=== PATIENT | female | born 1980 | race Caucasian/White ===

== ENCOUNTER 2021-11-23 12:24 | Emergency (ER) | payer OTHER, SELFPAY ==
--- NOTE | ~2021-11-23 | XR_ITS ---
EXAMINATION: XR ANKLE, LEFT CLINICAL INFORMATION: Slip and fall. Pain COMPARISON: None TECHNIQUE: AP, lateral, and mortise views of the left ankle. FINDINGS: The ankle mortise and subtalar joints are normal. There is an oblique distal fibular comminuted fracture. No additional fractures seen. There is slight increased distance in the medial ankle mortise joint space. Moderate lateral malleolar soft tissue swelling is noted. XR/XR ankle LT min 3V IMPRESSION: Oblique comminuted fracture distal fibula with mild distraction of the ankle mortise and moderate lateral malleolar soft tissue swelling.
[2021-11-23 13:16] VITALS: BP 144/70; PULSE 88; RESP 18; TEMP 36.6; O2SAT 98; BMI 36.6
--- NOTE | 2021-11-23 15:00 | ED_ITS ---
HPI - Extremity Injury (Lower) General Chief Complaint: Extremity Injury, Lower <Poly Costa NP - Last Filed: 11/23/21 17:34> Stated Complaint: fall - lt ankle injury <DASHAWN Richey Last Filed: 11/23/21 17:34> Time Seen by Provider: 11/23/21 14:33 <DASHAWN Richey Last Filed: 11/23/21 17:34> Source: patient <DASHAWN Richey Last Filed: 11/23/21 17:34> Mode of arrival: ambulatory <DASHAWN Richey Last Filed: 11/23/21 17:34> Limitations: no limitations <DASHAWN Richey Last Filed: 11/23/21 17:34> History of Present Illness HPI Narrative: 40-year-old female here with left ankle pain after an inversion injury that occurred while leaving work. Patient tells me she was in the work parking lot getting into her car when her foot slipped on ice with inversion of the ankle. Patient tells me since then she has had difficulty with weight-bearing due to pain. No numbness, tingling, warmth, redness or fever. <DASHAWN Richey Last Filed: 11/23/21 17:34> Related Data Home Medications: Previous Rx's Medication Instructions Recorded ibuprofen 600 mg tablet 600 mg PO Q8H PRN #20 tab 11/23/21 oxycodone 5 mg tablet 5 mg PO Q6H PRN #10 tab 11/23/21 <DASHAWN Richey Last Filed: 11/23/21 17:34> Allergies/Adverse Reactions: Allergies Allergy/AdvReac Type Severity Reaction Status Date / Time No Known Allergies Allergy Unverified 07/16/20 15:50 <DASHAWN Richey Last Filed: 11/23/21 17:34> Review of Systems Verdana 4l Review of Systems: Verdana 4d Yes all other systems are reviewed and are negative Verdana 4Il <DASHAWN Richey Last Filed: 11/23/21 17:34> Verdana 4d Verdana 4l Constitutional: Verdana 4d Verdana 4d Constitutional: Verdana 4d Reports no additional constitutional complaints, Denies body ache(s), Denies chills, Denies fever(s), Denies headache(s) and Denies weakness Verdana 4Il <Poly Costa NP - Last Filed: 11/23/21 17:34> VerdanaVerdana 4d Eyes: Eyes: Reports no additional eye complaints and Denies change in vision <Poly Costa NP - Last Filed: 11/23/21 17:34> ENT: Reports system reviewed and no additional complaints, except as documented, Denies dizziness, Denies headache(s), Denies nasal congestion, Denies nasal discharge and Denies neck pain <Poly Costa NP - Last Filed: 11/23/21 17:34> Cardiovascular: Cardiovascular: Reports no additional cardiovascular complaints, Denies chest pain, Denies leg edema and Denies dyspnea <Poly Costa NP - Last Filed: 11/23/21 17:34> Respiratory: Respiratory: Reports no additional respiratory complaints, Denies cough and Denies dyspnea <Poly Costa NP - Last Filed: 11/23/21 17:34> Gastrointestinal: Gastrointestinal: Reports no additional gastrointestinal complaints, Denies abdominal pain, Denies diarrhea, Denies nausea and Denies vomiting <Poly Cotsa NP - Last Filed: 11/23/21 17:34> Genitourinary: Genitourinary: Reports no additional female genitourinary complaints and Denies urinary incontinence <Poly Costa NP - Last Filed: 11/23/21 17:34> Musculoskeletal: Musculoskeletal: Reports no additional musculoskeletal complaints, Denies back pain, Reports arthralgias, Reports joint swelling, Reports limited range of motion, Denies neck pain, Denies numbness and Denies tingling <Poly Costa NP - Last Filed: 11/23/21 17:34> Integumentary/Breasts: Skin/Breast: Reports system reviewed and no additional complaints, except as docu and Denies rash <Poly Costa NP - Last Filed: 11/23/21 17:34> Neurologic: Reports system reviewed and no additional complaints, except as documented, Denies Abnormal speech present, Denies dizziness, Denies headache(s), Denies numbness, Denies tingling and Denies weakness <Poly Costa NP - Last Filed: 11/23/21 17:34> [facility] Past Medical History Attestation statement: The following information was validated with the patient. <Poly Costa NP - Last Filed: 11/23/21 17:34> Source: old records reviewed and nursing notes reviewed <Poly Costa NP - Last Filed: 11/23/21 17:34> Social History Social History: Social History Advance Directives: No Advance Directives Information Provided: No <Poly Costa NP - Last Filed: 11/23/21 17:34> Physical Exam Verdana 4l Vital Signs: Verdana 4d Verdana 4d Vital Signs: Verdana 4d Verdana 4Bd Last Vital Signs Verdana 4d Sand Mixer Machine New 4d Sand Mixer Machine New 4d Temp 98 F 11/23/21 13:16 Sand Mixer Machine New 4d Pulse 88 11/23/21 13:16 Sand Mixer Machine New 4d Resp 18 11/23/21 13:16 BP 144/70 H 11/23/21 13:16 Pulse Ox 98 11/23/21 13:16 BMI result Body Mass Index 36.6 <DASHAWN Richey Last Filed: 11/23/21 17:34> Const: General: cooperative, healthy appearing, comfortable and no acute distress <Poly Costa NP - Last Filed: 11/23/21 17:34> Orientation/consciousness: patient oriented x3 <Poly Costa NP - Last Filed: 11/23/21 17:34> Limitations: no limitations <Poly Costa NP - Last Filed: 11/23/21 17:34> HENMT: Head: Yes normal to inspection <DASHAWN Richey Last Filed: 11/23/21 17:34> Ears: hearing grossly normal bilaterally <Poly Costa NP - Last Filed: 11/23/21 17:34> General nose exam: Normal external nose present <Poly Costa NP - Last Filed: 11/23/21 17:34> Face and sinus: Yes normal facial exam <Poly Costa [employer]ER - Last Filed: 11/23/21 17:34> Mouth: Normal oral and palatal mucosa present <Poly Costa NP - Last Filed: 11/23/21 17:34> Throat: Yes posterior oropharynx normal <Poly Costa [employer] - Last Filed: 11/23/21 17:34> Eyes: General: appearance normal, both eyes and all related structures <Poly Costa NP - Last Filed: 11/23/21 17:34> Pupils: Equal, round and reactive pupils present <Poly Costa [employer] - Last Filed: 11/23/21 17:34> Neck: Neck: Yes normal visual inspection <Poly Costa NP - Last Filed: 11/23/21 17:34> Chest: Chest palpation & inspection: normal inspection of the chest <Poly Costa [employer] - Last Filed: 11/23/21 17:34> Resp: Effort & Inspection: normal respiratory effort <Poly Costa NP - Last Filed: 11/23/21 17:34> Auscultation: clear to auscultation bilaterally <Poly Costa [employer] - Last Filed: 11/23/21 17:34> Cardio: Rate: regular rate <Poly Costa NP - Last Filed: 11/23/21 17:34> Rhythm: regular rhythm <Poly Costa NP - Last Filed: 11/23/21 17:34> Peripheral pulses: Peripheral pulses 2+ throughout <Poly Costa NP - Last Filed: 11/23/21 17:34> GI: Inspection: Yes normal to inspection <Poly Costa NP - Last Filed: 11/23/21 17:34> Palpation (GI): Soft to palpation and nontender <Poly Costa [employer] - Last Filed: 11/23/21 17:34> Auscultation: normal bowel sounds <Poly Costa NP - Last Filed: 11/23/21 17:34> Back/Spine/Pelvis: Thoracic/Lumbar Spine: thoracic and lumbar spine normal to inspection <Poly Costa NP - Last Filed: 11/23/21 17:34> Skin: General skin exam: no rashes or lesions noted <Poly Costa NP - Last Filed: 11/23/21 17:34> Neuro: General: patient oriented x3, no focal motor deficits and normal sensation to monofilament <Poly Costa NP - Last Filed: 11/23/21 17:34> Cranial nerves: Yes Equal, round and reactive pupils present <Poly Costa NP - Last Filed: 11/23/21 17:34> Cognition (Neuro): normal cognition <Poly Costa NP - Last Filed: 11/23/21 17:34> Speech: No Abnormal speech present <Poly Costa NP - Last Filed: 11/23/21 17:34> Gait exam (Neuro): Normal gait present <Poly Costa NP - Last Filed: 11/23/21 17:34> Motor exam (neuro): 5/5 motor strength present throughout <Poly Costa NP - Last Filed: 11/23/21 17:34> Extrem: Other: There is ecchymosis, swelling and tenderness the left lateral ankle. Neurovascular intact distally. Range of motion is limited due to pain the patient is able. <Poly Costa NP - Last Filed: 11/23/21 17:34> General: Yes normal to inspection <Poly Costa NP - Last Filed: 11/23/21 17:34> Course Course Course Narrative: 40yo female here with inversion injury to the left ankle. X-ray show Oblique comminuted fracture distal fibula with mild distraction of the ankle mortise and moderate lateral malleolar soft tissue swelling. -will place patient in splint and given crutches for home. Reviewed rice. Reviewed worrisome signs and symptoms of when to return to the emergency department. Comfortable discharge home. <Poly Costa NP - Last Filed: 11/23/21 17:34> MDM - Extremity Injury (Lower) Medical Records Attestation: I reviewed the patient's medical records. <Poly Costa NP - Last Filed: 11/23/21 17:34> Lab Data Attestation: I reviewed the patient's lab results. <Poly Costa NP - Last Filed: 11/23/21 17:34> Imaging Data Ankle x-ray: Attestation: I personally reviewed and interpreted this imaging study as follows: <Poly Costa NP - Last Filed: 11/23/21 17:34> Radiologist's impression: [place] [id number] XRay Report Signed Patient: Lavonne Barger MR#: [id number] : 1980 Acct:[id number] Age/Sex: 40 / F ADM Date: 11/23/21 Loc: HO.ED Attending Dr: Ordering Physician: Generic ED Physician Date of Service: 11/23/21 Procedure(s): XR ankle LT min 3V Accession Number(s): [id number] cc: Generic ED Physician~ EXAMINATION: XR ANKLE, LEFT CLINICAL INFORMATION: Slip and fall. Pain? COMPARISON: None? TECHNIQUE: AP, lateral, and mortise views of the left ankle. FINDINGS: The ankle mortise and subtalar joints are normal. There is an oblique distal fibular comminuted fracture. No additional fractures seen. There is slight increased distance in the medial ankle mortise joint space. Moderate lateral malleolar soft tissue swelling is noted.? XR/XR ankle LT min 3V IMPRESSION: Oblique comminuted fracture distal fibula with mild distraction of the ankle mortise and moderate lateral malleolar soft tissue swelling. <Poly Costa NP - Last Filed: 11/23/21 17:34> Procedures Orthopedic Splinting/Casting Injury #1: Lower Extremity Injury Location: lower leg and ankle <Poly Costa NP - Last Filed: 11/23/21 17:34> Lower Extremity Immobilizer: posterior splint and stirrup splint <Poly Costa NP - Last Filed: 11/23/21 17:34> Other Orthopedic Equipment: crutches <Poly Costa NP - Last Filed: 11/23/21 17:34> Discharge Plan Discharge Clinical Impression: Ankle fracture <Poly Costa NP - Last Filed: 11/23/21 17:34> Patient Disposition: Home, Self-Care <Poly Costa NP - Last Filed: 11/23/21 17:34> Instructions: Ankle Fracture (ED) <Poly Costa NP - Last Filed: 11/23/21 17:34> Additional Instructions: Rest, ice, elevate on 3 or more pillows The splint must stay on all times. Do not remove it. It cannot get wet. Crutches with strict weight-bearing. Call Orthopedics today for a follow-up appointment this week Call work connection as this is a work related injury for follow-up [phone] <Poly Costa NP - Last Filed: 11/23/21 17:34> Prescriptions: New ibuprofen 600 mg tablet 600 mg PO Q8H PRN (Reason: pain) Qty: 20 0RF oxycodone 5 mg tablet 5 mg PO Q6H PRN (Reason: pain) Qty: 10 0RF <Poly Costa NP - Last Filed: 11/23/21 17:34> Referrals: Magaly Levy MD [Physician] - 2 days <Poly Costa NP - Last Filed: 11/23/21 17:34> Stand Alone Forms: Work/School Release <Poly Costa NP - Last Filed: 11/23/21 17:34> Interventions: ED Discharge Assessment Last Done: 11/23/21 16:18 <Poly Costa NP - Last Filed: 11/23/21 17:34> Discharge Date/Time: 11/23/21 16:21 <Poly Costa NP - Last Filed: 11/23/21 17:34>
== END 2021-11-23 16:21 | disposition home or self-care (01) ==
PROVIDERS: Emergency Provider Emergency Medicine; PCP Internal Medicine
DX: S82.892A Other fracture of left lower leg, initial encounter for closed fracture (principal); M79.605 Pain in left leg; W00.0XXA Fall on same level due to ice and snow, initial encounter; Y93.9 Activity, unspecified; Y92.9 Unspecified place or not applicable; Y99.9 Unspecified external cause status; Z79.899 Other long term (current) drug therapy
CPT/HCPCS: 29515; 73610; 99283; 99284

== ENCOUNTER 2021-12-03 06:04 | Outpatient (REF) | payer OTHER, SELFPAY ==
--- NOTE | ~2021-12-03 | XR_ITS ---
EXAMINATION: XR ANKLE, LEFT CLINICAL INFORMATION: Pain in left ankle. COMPARISON: None TECHNIQUE: AP, lateral, and mortise views of the left ankle. FINDINGS: There is mild lateral malleolar soft tissue swelling. There is an oblique minimally displaced fracture distal fibula. There is mild widening of the medial ankle joint, similar to previous study. The subtalar joint is normal. The soft tissues are normal. XR/XR ankle LT min 3V IMPRESSION: No significant change in stable comminuted oblique distal fibular fracture with mild increased joint space medial ankle mortise and moderate lateral malleolar soft tissue swelling.
== END 2021-12-03 06:05 | disposition home or self-care (01) ==
LOC: HO.HOSX 06:04
PROVIDERS: Visit Provider Physician Assistant
DX: S82.832A Other fracture of upper and lower end of left fibula, initial encounter for closed fracture (principal)
CPT/HCPCS: 29405; 73610; 99202

== ENCOUNTER 2021-12-08 09:45 | Outpatient (REF) | payer OTHER, SELFPAY ==
--- NOTE | ~2021-12-08 | XR_ITS ---
EXAMINATION: XR ANKLE, LEFT CLINICAL INFORMATION: Left ankle pain. COMPARISON: 12/03/2021 and 11/23/2021. TECHNIQUE: AP, lateral, and mortise views of the left ankle. FINDINGS: 3 views taken through a cast of the left ankle provided. Fine bony details obscured by overlying cast material. On the provided imaging, the ankle mortise appears intact. No widening of the medial joint space. Alignment appears unchanged. There is a vertical line through the posterior malleolus consistent with non-displaced posterior malleolar fracture. There also appears to be a non-displaced small avulsion fracture of the medial malleolus. XR/XR ankle LT min 3V IMPRESSION: No change in alignment of the left ankle with no widening of the ankle mortise.
== END 2021-12-08 09:46 | disposition home or self-care (01) ==
LOC: HO.HOSX 09:45
PROVIDERS: Visit Provider Physician Assistant
DX: L97.329 Non-pressure chronic ulcer of left ankle with unspecified severity (principal); S82.832D Other fracture of upper and lower end of left fibula, subsequent encounter for closed fracture with routine healing; X58.XXXD Exposure to other specified factors, subsequent encounter
CPT/HCPCS: 73610; 99212

== ENCOUNTER 2021-12-16 06:31 | Outpatient (REF) | payer OTHER, SELFPAY | END 2021-12-16 06:32 | disposition home or self-care (01) | LOC: HO.HOSX 06:31 | PROVIDERS: Visit Provider Physician Assistant | DX: Z13.89 Encounter for screening for other disorder (principal) ==

== ENCOUNTER 2021-12-27 08:11 | Outpatient (REF) | payer OTHER, SELFPAY ==
--- NOTE | ~2021-12-27 | XR_ITS ---
EXAMINATION: XR ANKLE, LEFT CLINICAL INFORMATION: Ankle pain COMPARISON: X-ray 12/08/2021 TECHNIQUE: AP, lateral, and mortise views of the left ankle. FINDINGS: Interval removal of the cast. The comminuted distal fibular fracture is similar in position and alignment. The fracture planes are visible, but ill-defined. Lucency projected over the posterior malleolus of the distal tibia, could represent a undisplaced fracture in this region. Question small avulsion fracture adjacent to the tip of the medial malleolus. Asymmetric appearance of the ankle mortise, with widening of the medial clear space. Mild lateral malleolar soft tissue swelling. XR/XR ankle LT min 3V IMPRESSION: Stable alignment of the comminuted distal fibular fracture. Asymmetric prominence of the medial aspect of the ankle mortise, could be related to widening versus secondary to positioning/technique. Question posterior malleolar fracture. Question subtle avulsion fracture of the tip of the medial malleolus.
== END 2021-12-27 08:12 | disposition home or self-care (01) ==
LOC: HO.HOSX 08:11
PROVIDERS: Visit Provider Physician Assistant
DX: S82.832D Other fracture of upper and lower end of left fibula, subsequent encounter for closed fracture with routine healing (principal)
CPT/HCPCS: 29405; 73610; 99212

== ENCOUNTER 2022-01-21 07:49 | Outpatient (REF) | payer OTHER, SELFPAY ==
--- NOTE | ~2022-01-21 | XR_ITS ---
EXAMINATION: XR ANKLE, LEFT CLINICAL INFORMATION: Pain COMPARISON: Left ankle 12/19/2021 TECHNIQUE: AP, lateral, and mortise views of the left ankle. FINDINGS: Again visualized is a nondisplaced fracture distal fibula without any significant callus formation. There is a tiny avulsion fragment tip of medial malleolus. Mild prominence of medial aspect of ankle mortise likely mild widening is stable. The subtalar joint is normal. No other abnormality seen. XR/XR ankle LT min 3V IMPRESSION: Oblique distal fibular fracture is stable. No callus formation seen yet. Tiny fracture fragment tip of medial malleolus is stable. Mild widening of the medial ankle mortise is unchanged. No soft tissue swelling seen.
== END 2022-01-21 07:50 | disposition home or self-care (01) ==
LOC: HO.HOSX 07:49
PROVIDERS: Visit Provider Physician Assistant
DX: S82.832D Other fracture of upper and lower end of left fibula, subsequent encounter for closed fracture with routine healing (principal)
CPT/HCPCS: 73610; 99212

== ENCOUNTER 2022-02-25 08:01 | Outpatient (REF) | payer OTHER, SELFPAY ==
--- NOTE | ~2022-02-25 | XR_ITS ---
EXAMINATION: XR ankle LT min 3V CLINICAL INFORMATION: Pain COMPARISON: Ankle radiographs 01/21/2022 TECHNIQUE: 3 views of the ankle XR/XR ankle LT min 3V FINDINGS/IMPRESSION: Redemonstration of the comminuted obliquely oriented fracture of the distal fibular metadiaphysis, in unchanged alignment without romero bony callus formation. A nondisplaced posterior malleolus fracture demonstrates minimal residual lucency suggesting ongoing healing. Similar tiny avulsion fracture of the medial malleolus. Disuse osteopenia progressed from prior. Ankle mortise is congruent without widening of the medial clear space. No joint effusion. Soft tissues are unremarkable.
== END 2022-02-25 08:02 | disposition home or self-care (01) ==
LOC: HO.HOSX 08:01
PROVIDERS: Visit Provider Physician Assistant
DX: S82.832D Other fracture of upper and lower end of left fibula, subsequent encounter for closed fracture with routine healing (principal); X58.XXXD Exposure to other specified factors, subsequent encounter
CPT/HCPCS: 73610; 99212

== ENCOUNTER 2022-04-18 07:55 | Outpatient (REF) | payer OTHER, MEDICAID, SELFPAY ==
--- NOTE | ~2022-04-18 | XR_ITS ---
EXAMINATION: XR ANKLE, LEFT CLINICAL INFORMATION: Pain left ankle joint and foot COMPARISON: Ankle radiograph from 02/25/2022 TECHNIQUE: AP, lateral, and mortise views of the left ankle. FINDINGS: Redemonstration of spiral fracture involving the distal fibula, relatively stable in alignment. Fracture of the posterior malleolus is less conspicuous suggesting interval healing. Disuse osteopenia. The ankle mortise is symmetric. Suggestion of pes planus. Very slight enthesopathy at the Achilles tendon insertion site. Soft tissues are unremarkable. XR/XR ankle LT min 3V IMPRESSION: 1. Redemonstration of spiral fracture involving the distal fibula, relatively stable in alignment. 2. Fracture of the posterior malleolus is less conspicuous suggesting interval healing. 3. Disuse osteopenia.
== END 2022-04-18 07:56 | disposition home or self-care (01) ==
LOC: HO.HOSX 07:55
PROVIDERS: Visit Provider Physician Assistant
DX: S82.832D Other fracture of upper and lower end of left fibula, subsequent encounter for closed fracture with routine healing (principal)
CPT/HCPCS: 73610; 99212

== ENCOUNTER 2022-04-27 13:00 | Outpatient (RCR) | payer OTHER, MEDICAID, SELFPAY ==
--- NOTE | 2022-03-18 08:30 | MHC.PT.EP ---
[facility] [place] Office [place] Office [place] Office [address] Brie Soni [address] [phone] F: [phone] F: [phone] F: [phone] F: [phone] Physical Therapy Plan of Care Date of Evaluation: Date of Surgery: Diagnosis: other fx of upper and lower end of L fibula, subsequent encounter for closed fx with routine healing ROM, heel cord stretching, proprioceptive training Assessment: 41 y/o referred to PT following fx of upper and lower end of L fibula. 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 Injury occurred 11/22/21 while walking out of work when she slipped on ice. Reports instant pain and unable to WB; she went to the ED the next day and she was placed in a splint and referred to ortho due to L tibia-fibular fx. States she ended up having an ulcer on her heel, therefore per pt she was unable to have surgery. She has been in a tall walking boot for a about a month (pt is unsure of timeline between wearing splints, casts, and walking boot). She has mostly been compliant with NWB outside of boot except occasionally walking from bedroom to bathroom barefoot. 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 Examination shows decreased L ankle AROM, mild ankle edema, decreased gastroc/soleus length, decreased L LE strenght, impaired balance, and impaired gait pattern. Recommend PT 2x/week for 8 weeks to address impairments, implement HEP, and optimize functional mobility. Frequency and Duration: The patient will be seen 2x/week for 8 weeks Short Term Goals: 4 weeks 1. I with HEP 2. Improve L ankle dorsiflexion to 10* 3. Improve L ankle plantarflexion to 50* 4. Will initiate gait without boot once cleared from [facility] Goals: 8 weeks 1. I with HEP and self management of sx 2. Improve LEFS to 40/80 (IR ) 3. Pt will be able to ambulate > 25minutes with step through pattern and pain < 3/10 4. Pt will be able to lift 10# to faciliate grocery shopping Treatment Plan: Modalities to reduce pain, spasms and effusion. Manual therapy to restore motion and function. Therapeutic exercise to improve strength and flexibility. Neuromuscular re-education for posture and balance. Therapeutic activities to return to functional activities of daily living. Electronically signed by: Jeanne Dow PT DPT Please sign and return to therapist. Thank you for your referral.
--- NOTE | 2022-05-16 10:44 | MHC.PT.DC ---
[facility] [place] Office [place] Office [place] Office [address] Brie Soni [address] [phone] F: [phone] F: [phone] F: [phone] F: [phone] Physical Therapy Discharge Report Diagnosis: other fx of upper and lower end of L fibula, subsequent encounter for closed fx with routine healing ROM, heel cord stretching, proprioceptive training Date of Surgery: Date of Evaluation: 03/18/22 Date of Discharge: 05/16/22 Treatments to Date: 8 Cancellations to Date: 2 No Shows to Date: 5 Discharge Status: Visit Non-compliance Discharge Summary: D/c secondary to noncompliance with scheduling policy with 5 no shows visits. Electronically signed by: Jeanne Dow PT Please sign and return to therapist. Thank you for your referral.
== END 2022-05-16 10:44 | disposition home or self-care (01) ==
LOC: HO.PTCHIC 13:00
PROVIDERS: PCP Internal Medicine; Visit Provider Physician Assistant
DX: S82.832D Other fracture of upper and lower end of left fibula, subsequent encounter for closed fracture with routine healing (principal)
CPT/HCPCS: 97110; 97112; 97116; 97161; 97530

== ENCOUNTER 2022-05-16 08:17 | Outpatient (REF) | payer OTHER, MEDICAID, SELFPAY ==
--- NOTE | ~2022-05-16 | XR_ITS ---
EXAMINATION: XR ANKLE, LEFT CLINICAL INFORMATION: Left ankle pain COMPARISON: 04/18/2022 TECHNIQUE: AP, lateral, and mortise views of the left ankle. XR/XR ankle LT min 3V FINDINGS/IMPRESSION: Disuse osteopenia. Oblique longitudinal fracture of the distal fibula above the syndesmosis with minimal, if any, osseous bridging. No significant change.
== END 2022-05-16 08:18 | disposition home or self-care (01) ==
LOC: HO.HOSX 08:17
PROVIDERS: Visit Provider Physician Assistant
DX: S82.832D Other fracture of upper and lower end of left fibula, subsequent encounter for closed fracture with routine healing (principal)
CPT/HCPCS: 73610; 99212

== ENCOUNTER 2022-06-11 14:09 | Emergency (ER) | payer MEDICAID, SELFPAY ==
[2022-06-11 14:48] VITALS: BP 97/57; PULSE 88; RESP 20; TEMP 36.2; O2SAT 98; BMI 36.6
== END 2022-06-11 17:00 | disposition left against medical advice (07) ==
PROVIDERS: Emergency Provider Emergency Medicine; PCP Internal Medicine
DX: Z76.0 Encounter for issue of repeat prescription (principal)
CPT/HCPCS: 99281

== ENCOUNTER 2022-06-27 11:27 | Outpatient (REF) | payer MEDICAID, SELFPAY ==
--- NOTE | ~2022-06-27 | XR_ITS ---
EXAMINATION: XR ANKLE, LEFT CLINICAL INFORMATION: Pain in left ankle COMPARISON: Left ankle radiograph from 05/16/2022 TECHNIQUE: AP, lateral, and mortise views of the left ankle. FINDINGS: Decreased bone mineral density which decreases sensitivity for fracture evaluation. Redemonstration of oblique fracture involving the distal fibula slightly above the syndesmosis, relatively stable in appearance. Stable 2 mm ossicle at the inferior aspect of the medial malleolus. Ankle mortise is symmetric. Joint spaces and alignment are maintained. Soft tissues are unremarkable. XR/XR ankle LT min 3V IMPRESSION: 1. Decreased bone mineral density which decreases sensitivity for fracture evaluation. 2. Redemonstration of oblique fracture involving the distal fibula slightly above the syndesmosis, relatively stable in appearance.
== END 2022-06-27 11:28 | disposition home or self-care (01) ==
LOC: HO.HOSX 11:27
PROVIDERS: Visit Provider Physician Assistant
DX: S82.832D Other fracture of upper and lower end of left fibula, subsequent encounter for closed fracture with routine healing (principal)
CPT/HCPCS: 73610; 99212

== ENCOUNTER 2022-08-09 12:57 | Emergency (ER) | payer MEDICAID, SELFPAY ==
[2022-08-09 13:06] VITALS: BP 160/82; PULSE 114; RESP 20; TEMP 36.9; O2SAT 97; BMI 36.6
[2022-08-09] MEDS: Ondansetron ODT 4 MG TAB.RAPDIS TRANSLINGU (17:55)
--- OUTSIDE RECORDS SUMMARY | 2022-08-09 21:00 | XMS_ITS | Continuity of Care Document ---
:1980 Author Organization [facility] Adult Address [address] [place] [address]- Care Team Providers Name Role Phone Michael Gutierrez MD Primary Care Physician Encounter [facility] [place] Date(s): 07/19/21 - 08/18/21 [facility] [address] [place] [id number] Attending Physician: Mercedez Barajas Admitting Physician: AdmtrMercedez Referring Physician: Admtr, Ar8 Allergies, Adverse Reactions, Alerts Substance Reaction Severity Status NKA Active Immunizations Given and Recorded Vaccine Date Status Refusal Reason tetanus/diphtheria/pertussis, acel(Tdap) 01/09/20 Given tetanus/diphtheria/pertussis, acel(Tdap)1 06/29/18 Given influenza virus vaccine, inactivated2 11/07/19 Given influenza virus vaccine, inactivated3 08/28/17 Given influenza virus vaccine, inactivated4 10/02/15 Given Afluria (oldterm)5 07/13/16 Given Tet/Diphth/Acel, Pertussis (oldterm) 03/06/08 Given 1Result Comment: [06/29/2018] VIS sheet given, pt tolerated [id number] Comment: Patient tolerated well NS.3Admin Note: [place] Famd4Nwraz Note: [id number] Note: [facility] Medications Alcohol Pads See Instructions, # 1 pack/packet, Refills 1, Tot. Refills 1, Maintenance, Z34.81: Please test bloodsugars 4 times a day and as needed, 02/13/20 14:20:00 EDT, Compound, 158.5, cm, 02/13/20 13:28:00 EDT, Height, 56.3, kg, 03/21/19 12:47:00 EDT, Dry We... Start Date: 02/13/20 Status: Orderedbaclofen 10 mg oral tablet 1, tablet, By Mouth, Daily, PRN, # 30 tablet, Refills 0, NEEDED FOR MUSCLE SPASMS, Route to Pharmacy Electronically, [facility] #[id number], 158, cm, 03/25/21 13:19:00 EDT, Height, 83.6, kg, 04/03/20 7:47:00 EDT, Dry Weight Start Date: 06/25/21 Status: OrderedclonazePAM 1 mg oral tablet 1 tablet = 1 mg, By Mouth, 2 times a day, # 60 tablet, 1 Refills, Maintenance, 07/30/19 11:44:00 EDT Start Date: 07/30/19 Stop Date: 09/28/19 Status: OrderedcloNIDine 0.2 mg oral tablet See Instructions, # 60 tablet, Refills 5 Tot. Refills 5, TAKE 1 TABLET BY MOUTH TWICE DAILY, [facility] #[id number] Start Date: 07/31/19 Status: Orderedfluticasone 50 mcg/inh nasal spray See Instructions, SHAKE LIQUID AND USE 1 SPRAY IN EACH NOSTRIL TWICE DAILY, # 16 Gm, 5 Refills, Maintenance, 04/25/21 9:43:00 EDT, [facility] #[id number], 30, SHAKE LIQUID AND USE 1 SPRAY IN EACH NOSTRIL TWICE DAILY, 158, cm, 03/25/21 13:19:00 ED... Start Date: 04/25/21 Status: OrderedFreestyle Lite Lancets See Instructions, # 1 pack/packet, Maintenance, Z34.81: Please test blood sugars 4 times a day and as needed, 02/13/20 14:20:00 EDT, Compound, 158.5, cm, 02/13/20 13:28:00 EDT, Height, 56.3, kg, 03/21/19 12:47:00 EDT, Dry Weight Start Date: 02/13/20 Status: OrderedFreestyle Lite Monitor See Instructions, # 1 each, Maintenance, Z34.81: Please test blood sugars 4 times a day and as needed, 02/13/20 14:19:00 EDT, Compound, 158.5, cm, 02/13/20 13:28:00 EDT, Height, 56.3, kg, 03/21/19 12:47:00 EDT, Dry Weight Start Date: 02/13/20 Status: OrderedFreestyle Lite Test Strips See Instructions, # 1 pack/packet, Refills 2, Tot. Refills 2, Maintenance, Z34.81: Please test bloodsugars 4 times a day and as needed, 02/13/20 14:20:00 EDT, Compound, 158.5, cm, 02/13/20 13:28:00 EDT, Height, 56.3, kg, 03/21/19 12:47:00 EDT, Dry We... Start Date: 02/13/20 Status: OrderedNeurontin 300 mg oral capsule 900 mg, 3, capsule, By Mouth, 3 times a day, # 270 capsule, Refills 5, Tot. Refills 5, Maintenance, 03/28/19 13:00:13 EDT, Route to Pharmacy Electronically, [id number], [id number] Start Date: 03/28/19 Stop Date: 09/24/19 Status: OrderedOrtho Micronor 0.35 mg oral tablet 1 tablet = 0.35 mg, By Mouth, Daily, # 84 tablet, 2 Refills, Maintenance, 04/06/20 9:47:00 EDT, Tablet, [facility] #[id number], 158, cm, 04/06/20 8:25:00 EDT, Height, 83.6, kg, 04/03/20 7:47:00 EDT, Dry Weight Start Date: 04/06/20 Status: OrderedPreNatal 19 (Nationwide) oral tablet, chewable 1 tablet, Daily, 0 Refills, Maintenance, 04/03/20 8:09:00 EDT Start Date: 04/03/20 Status: OrderedQUEtiapine 400 mg oral tablet See Instructions, # 30 tablet, Refills 5 Tot. Refills 5, TAKE 1 TABLET BY MOUTH DAILY AT BEDTIME, [facility] #[id number] Start Date: 08/09/19 Status: OrderedReadi-Cat 2 oral suspension See Instructions, PATIENT HAS INSTRUCTIONS, # 2 each, 0 Refills, Maintenance, 04/22/20 14:54:00 EDT,[facility] #[id number], PATIENT HAS INSTRUCTIONS, 158, cm, 04/22/20 13:06:00 EDT, Height, 83.6,kg, 04/03/20 7:47:00 EDT, Dry Weight Start Date: 04/22/20 Status: OrderedSuboxone 8 mg-2 mg sublingual film 2 each, Sublingual, Daily, # 60 each, 0 Refills, Maintenance, 07/15/16 14:28:07 Start Date: 07/15/16 Stop Date: 08/14/16 Status: Ordered Problem List Condition Effective Dates Status Health Status Informant Anxiety disorder(Confirmed) Active Depression(Confirmed)1 Active Hepatitis C(Confirmed) Active History of substance abuse(Confirmed) Active Hypercholesterolemia(Confirmed) 11/24/10 Active Migraine(Confirmed)2 Active Opioid dependence on maintenance Active agonist therapy, no symptoms(Confirmed)3 PTSD (post-traumatic stress Active disorder)(Confirmed) Major depression, recurrent(Confirmed) Active Hx of Seizures(Confirmed)4 Active Spasm of muscle(Confirmed) Active 1Has therapist, tries to see q2wks, but her availability makes it hard to see her like patient would to see her.2Hx of frequent migraines. Managed by pcp mainly, but reports has tried many meds and none seem to work and they tend to make her heart race.[id number] in years, clonazepam 1mg bid. Has seen neuro in past. Social History Social History Type Response Tobacco Use: 4 or less cigarettes(le ss than 1/4 pack)/day in last 30 days. Other: 1ppd prior to p regnancy and now down to 1pack/week.. Sex
--- OUTSIDE RECORDS SUMMARY | 2022-08-09 21:00 | XMS_ITS | Continuity of Care Document ---
:1980 Author Organization [facility] ic Address [address] [place] [id number]- Care Team Providers Name Role Phone Brenda SRIVASTAVA, Michael Primary Care Physician Encounter [facility] [place] Date(s): 02/27/20 - 03/05/[address] [address]- [facility] Attending Physician: Orquidea Altamirano MD Allergies, Adverse Reactions, Alerts Substance Reaction Severity Status NKA Active Immunizations Given and Recorded Vaccine Date Status Refusal Reason tetanus/diphtheria/pertussis, acel(Tdap) 01/09/20 Given tetanus/diphtheria/pertussis, acel(Tdap)1 06/29/18 Given influenza virus vaccine, inactivated2 11/07/19 Given influenza virus vaccine, inactivated3 08/28/17 Given influenza virus vaccine, inactivated4 10/02/15 Given Afluria (oldterm)5 07/13/16 Given Tet/Diphth/Acel, Pertussis (oldterm) 03/06/08 Given 1Result Comment: [06/29/2018] VIS sheet given, pt tolerated [id number] Comment: Patient tolerated well NS.3Admin Note: [place] Oexz1Szfxn Note: Uzngakzl3Kdlzn Note: [facility] Medications Alcohol Pads See Instructions, # 1 pack/packet, Refills 1, Tot. Refills 1, Maintenance, Z34.81: Please test bloodsugars 4 times a day and as needed, 02/13/20 14:20:00 EDT, Compound, 158.5, cm, 02/13/20 13:28:00 EDT, Height, 56.3, kg, 03/21/19 12:47:00 EDT, Dry We... Start Date: 02/13/20 Status: Orderedbaclofen 10 mg oral tablet 1, tablet, By Mouth, Daily, PRN, # 30 tablet, Refills 0, Tot. Refills 0, Maintenance, NEEDED FOR MUSCLE SPASMS, 12/26/19 15:03:00 EST, Route to Pharmacy Electronically, [facility] #[id number], 158.5, cm, 12/26/19 14:30:00 EST, Height, 56.3, kg... Start Date: 12/26/19 Status: OrderedclonazePAM 1 mg oral tablet 1 tablet = 1 mg, By Mouth, 2 times a day, # 60 tablet, 1 Refills, Maintenance, 07/30/19 11:44:00 EDT Start Date: 07/30/19 Stop Date: 09/28/19 Status: OrderedcloNIDine 0.2 mg oral tablet See Instructions, # 60 tablet, Refills 5 Tot. Refills 5, TAKE 1 TABLET BY MOUTH TWICE DAILY, [facility] #[id number] Start Date: 07/31/19 Status: OrderedFreestyle Lite Lancets See Instructions, # [...] 03/28/19 13:00:13 EDT, Route to Pharmacy Electronically, [id number], [id number] Start Date: 03/28/19 Stop Date: 09/24/19 Status: OrderedQUEtiapine 400 mg oral tablet See Instructions, # 30 tablet, Refills 5 Tot. Refills 5, TAKE 1 TABLET BY MOUTH DAILY AT BEDTIME, [facility] #[id number] Start Date: 08/09/19 Status: OrderedSuboxone 8 mg-2 mg sublingual film 2 each, Sublingual, Daily, # 60 each, 0 Refills, Maintenance, 07/15/16 14:28:07 Start Date: 07/15/16 Stop Date: 08/14/16 Status: Ordered Problem List Condition Effective Dates Status Health Status Informant Anxiety disorder(Confirmed) Active ASCUS of cervix with negative high Active risk HPV(Confirmed) Cigarette smoker motivated to Active quit(Confirmed) Depression(Confirmed)1 Active Echogenic bowel of fetus(Confirmed) Active History of abdominal Active hernia(Confirmed)2 Hepatitis C(Confirmed) Active Supervision of high-risk Active (Confirmed) History of substance abuse(Confirmed) Active [facility] colpo patient(Confirmed)3, 4 06/2016 Active Hypercholesterolemia(Confirmed) 11/24/10 Active Migraine(Confirmed)5 Active AMA (advanced maternal age) Active multigravida 35+(Confirmed) Opioid dependence on maintenance Active agonist therapy, no symptoms(Confirmed)6 PTSD (post-traumatic stress Active disorder)(Confirmed) Major depression, recurrent(Confirmed) Active Hx of Seizures(Confirmed)7 Active Spasm of muscle(Confirmed) Active Muscle spasm(Confirmed) Active 1Has therapist, tries to see q2wks, but her availability makes it hard to see her like patient would to see her.2Repaired surgically.3ECC, Biopsy neg x1, equiv x 1. Will repeat cotesting in one year.4h/o recurrent + HPV at other location. 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 Managed by pcp mainly, but reports has tried many meds and none seem to work and they tend to make her heart race.9mgtcuuzvdytat1Eaik in years, clonazepam 1mg bid. Has seen neuro in past. Social History Social History Type Response Tobacco Use: 4 or less cigarettes(le ss than 1/4 pack)/day in last 30 days. Other: 1ppd prior to p regnancy and now down to 1pack/week.. Sex Female
--- OUTSIDE RECORDS SUMMARY | 2022-08-09 21:00 | XMS_ITS | Continuity of Care Document ---
:1980 Author Organization [facility] Adult Address [address] [place] [address]- Care Team Providers Name Role Phone Brenda SRIVASTAVA, Michael Primary Care Physician Encounter [facility] [place] Date(s): 04/13/20 - 05/13/20 [facility] Adult [address] [place] [id number]- [facility] Attending Physician: Mercedez Barajas Admitting Physician: Mercedez Barajas Referring Physician: AdmtrMercedez Allergies, Adverse Reactions, Alerts Substance Reaction Severity Status NKA Active Immunizations Given and Recorded Vaccine Date Status Refusal Reason tetanus/diphtheria/pertussis, acel(Tdap) 01/09/20 Given tetanus/diphtheria/pertussis, acel(Tdap)1 06/29/18 Given influenza virus vaccine, inactivated2 11/07/19 Given influenza virus vaccine, inactivated3 08/28/17 Given influenza virus vaccine, inactivated4 10/02/15 Given Afluria (oldterm)5 07/13/16 Given Tet/Diphth/Acel, Pertussis (oldterm) 03/06/08 Given 1Result Comment: [06/29/2018] VIS sheet given, pt tolerated [id number] Comment: Patient tolerated well NS.3Admin Note: [place] Upji4Glank Note: Ppudrflz6Clutj Note: [facility] Medications Alcohol Pads See Instructions, # [...] Refills 0, Maintenance, NEEDED FOR MUSCLE SPASMS, 04/17/20 11:32:00 EDT, Route to Pharmacy Electronically, [facility] #[id number], 158, cm, 04/13/20 14:45:00 EDT, Height, 83.6, kg,... Start Date: 04/17/20 Status: OrderedclonazePAM 1 mg oral tablet 1 tablet = 1 mg, By Mouth, 2 times a day, # 60 tablet, 1 Refills, Maintenance, 07/30/19 11:44:00 EDT Start Date: 07/30/19 Stop Date: 09/28/19 Status: OrderedcloNIDine 0.2 mg oral tablet See Instructions, # 60 tablet, Refills 5 Tot. Refills 5, TAKE 1 TABLET BY MOUTH TWICE DAILY, [facility] #[id number] Start Date: 07/31/19 Status: OrderedFreestyle Lite Lancets [...] 03/28/19 13:00:13 EDT, Route to Pharmacy Electronically, [id number], [facility]692 Start Date: 03/28/19 Stop Date: 09/24/19 Status: OrderedOrtho Micronor 0.35 mg oral tablet 1 tablet = 0.35 mg, By Mouth, Daily, # 84 tablet, 2 Refills, Maintenance, 04/06/20 9:47:00 EDT, Tablet, [facility] #[id number], 158, cm, 04/06/20 8:25:00 EDT, Height, 83.6, kg, 04/03/20 7:47:00 EDT, Dry Weight Start Date: 04/06/20 Status: OrderedPreNatal 19 (Nationwide) oral tablet, chewable 1 tablet, Daily, 0 Refills, Maintenance, 04/03/20 8:09:00 EDT Start Date: 04/03/20 Status: OrderedQUEtiapine 400 mg oral tablet See Instructions, # 30 tablet, Refills 5 Tot. Refills 5, TAKE 1 TABLET BY MOUTH DAILY AT BEDTIME, [facility] #[id number] Start Date: 08/09/19 Status: OrderedReadi-Cat 2 oral suspension See Instructions, PATIENT HAS INSTRUCTIONS, # 2 each, 0 Refills, Maintenance, 04/22/20 14:54:00 EDT,[facility] #[id number], PATIENT HAS INSTRUCTIONS, 158, cm, 04/22/20 13:06:00 EDT, Height, 83.6,kg, 04/03/20 7:47:00 EDT, Dry Weight Start Date: 04/22/20 Status: OrderedSuboxone 8 mg-2 mg sublingual film 2 each, Sublingual, Daily, # 60 each, 0 Refills, Maintenance, 07/15/16 14:28:07 Start Date: 07/15/16 Stop Date: 08/14/16 Status: Ordered Problem List Condition Effective Dates Status Health Status Informant Depression(Confirmed)1 Active Hepatitis C(Confirmed) Active History of substance abuse(Confirmed) Active Hypercholesterolemia(Confirmed) 11/24/10 Active Migraine(Confirmed)2 Active Opioid dependence on maintenance Active agonist therapy, no symptoms(Confirmed)3 Major depression, recurrent(Confirmed) Active Hx of Seizures(Confirmed)4 Active Spasm of muscle(Confirmed) Active 1Has therapist, tries to see q2wks, but her availability makes it hard to see her like patient would to see her.2Hx of frequent migraines. Managed by pcp mainly, but reports has tried many meds and none seem to work and they tend to make her heart race.9rgoffvkeljaae8Gdbo in years, clonazepam 1mg bid. Has seen neuro in past. Social History Social History Type Response Tobacco Use: 4 or less cigarettes(le ss than 1/4 pack)/day in last 30 days. Other: 1ppd prior to p regnancy and now down to 1pack/week.. Sex
--- OUTSIDE RECORDS SUMMARY | 2022-08-09 21:00 | XMS_ITS | Continuity of Care Document ---
:1980 Author Organization [facility] ic Address [address] [place] [address]- Care Team Providers Name Role Phone Michael Gutierrez MD Primary Care Physician Encounter [facility] [place] Date(s): 04/06/20 - 05/23/[address] [address]- [facility] Attending Physician: Orquidea Altamirano MD Admitting Physician: Orquidea Altamirano MD Referring Physician: Michael Gutierrez MD Allergies, Adverse Reactions, Alerts Substance Reaction Severity Status NKA Active Immunizations Given and Recorded Vaccine Date Status Refusal Reason tetanus/diphtheria/pertussis, acel(Tdap) 01/09/20 Given tetanus/diphtheria/pertussis, acel(Tdap)1 06/29/18 Given influenza virus vaccine, inactivated2 11/07/19 Given influenza virus vaccine, inactivated3 08/28/17 Given influenza virus vaccine, inactivated4 10/02/15 Given Afluria (oldterm)5 07/13/16 Given Tet/Diphth/Acel, Pertussis (oldterm) 03/06/08 Given 1Result Comment: [06/29/2018] VIS sheet given, pt tolerated [id number] Comment: Patient tolerated well NS.3Admin Note: [place] Rder8Wolgf Note: Bdfibnem5Caubg Note: [facility] Medications Alcohol Pads See Instructions, # [...] 04/17/20 11:32:00 EDT, Route to Pharmacy Electronically, [facility] #[id number], 158, cm, 04/13/20 14:45:00 EDT, Height, 83.6, [...] TAKE 1 TABLET BY MOUTH TWICE DAILY, [facility] #[id number] Start Date: 07/31/19 Status: OrderedFreestyle Lite Lancets [...] EDT, Dry We... Start Date: 02/13/20 Status: Orderedmetronidazole topical 0.75% gel with applicator 1 applicator, Vaginally, Daily at bedtime, for 5 days, # 70 Gm, 0 Refills, Acute 05/26/20 15:15:00 EDT, 05/21/20 15:15:00 EDT, Gel, [facility] #[id number], 1 applicator Vaginally Daily at bedtime,x5 days, 158, cm, 05/21/20 14:00:00 EDT, Height, 8... Start Date: 05/21/20 Stop Date: 05/26/20 Status: OrderedNeurontin 300 mg oral capsule 900 mg, 3, capsule, By Mouth, 3 times a day, # 270 capsule, Refills 5, Tot. Refills 5, Maintenance, 03/28/19 13:00:13 EDT, Route to Pharmacy Electronically, [id number], [facility] [address]951 Start Date: 03/28/19 Stop Date: 09/24/19 Status: OrderedOrtho Micronor 0.35 mg oral tablet 1 tablet = 0.35 mg, By Mouth, Daily, # 84 tablet, 2 Refills, Maintenance, 04/06/20 9:47:00 EDT, Tablet, [facility] #[id number], 158, cm, 04/06/20 8:25:00 EDT, Height, 83.6, kg, 04/03/20 7:47:00 EDT, Dry Weight Start Date: 04/06/20 Status: OrderedPreNatal 19 (Nationwide) oral tablet, chewable 1 tablet, Daily, 0 Refills, Maintenance, 04/03/20 8:09:00 EDT Start Date: 04/03/20 Status: OrderedQUEtiapine 400 mg oral tablet See Instructions, # 30 tablet, Refills 5 Tot. Refills 5, TAKE 1 TABLET BY MOUTH DAILY AT BEDTIME, [facility] #[id number] Start Date: 08/09/19 Status: OrderedReadi-Cat 2 oral suspension See Instructions, PATIENT HAS INSTRUCTIONS, # 2 each, 0 Refills, Maintenance, 04/22/20 14:54:00 EDT,[facility] #[id number], PATIENT HAS INSTRUCTIONS, 158, cm, 04/22/20 13:06:00 EDT, Height, 83.6,kg, 04/03/20 7:47:00 EDT, Dry Weight Start Date: 04/22/20 Status: OrderedSuboxone 8 mg-2 mg sublingual film 2 each, Sublingual, Daily, # 60 each, 0 Refills, Maintenance, 07/15/16 14:28:07 Start Date: 07/15/16 Stop Date: 08/14/16 Status: Ordered Problem List Condition Effective Dates Status Health Status Informant Anxiety disorder(Confirmed) Active Bacterial vaginosis(Confirmed) Active Depression(Confirmed)1 Active Hepatitis C(Confirmed) Active History of substance abuse(Confirmed) Active Hypercholesterolemia(Confirmed) 11/24/10 Active Migraine(Confirmed)2 Active Opioid dependence on maintenance Active agonist therapy, no symptoms(Confirmed)3 Encounter for Active visit(Confirmed) PTSD (post-traumatic stress Active disorder)(Confirmed) Major depression, recurrent(Confirmed) Active Hx of Seizures(Confirmed)4 Active Spasm of muscle(Confirmed) Active 1Has therapist, tries to see q2wks, but her availability makes it hard to see her like patient would to see her.2Hx of frequent migraines. Managed by pcp mainly, but reports has tried many meds and none seem to work and they tend to make her heart race.0ptyspojydpxiq7Kygb in years, clonazepam 1mg bid. Has seen neuro in past. Social History Social History Type Response Tobacco Use: 4 or less cigarettes(le ss than 1/4 pack)/day in last 30 days. Other: 1ppd prior to p regnancy and now down to 1pack/week.. Sex
--- OUTSIDE RECORDS SUMMARY | 2022-08-09 21:00 | XMS_ITS | Continuity of Care Document ---
:1980 Author Organization [facility] Address [address] [place] [address]- Care Team Providers Name Role Phone Michael Gutierrez MD Primary Care Physician [place] [facility] [place] 05/13/22 - 05/13/[address] [address] Discharge Disposition: A-D/C Home Attending Physician: Oumou Rubi MD Admitting Physician: Oumou Rubi MD Referring Physician: Oumou Rubi MD Allergies, Adverse Reactions, Alerts No Known Allergies Immunizations Given and Recorded Vaccine Date Status Refusal Reason tetanus/diphtheria/pertussis, acel(Tdap) 01/09/20 Given tetanus/diphtheria/pertussis, acel(Tdap)1 06/29/18 Given influenza virus vaccine, inactivated2 11/07/19 Given influenza virus vaccine, inactivated3 08/28/17 Given influenza virus vaccine, inactivated4 10/02/15 Given Afluria (oldterm)5 07/13/16 Given Tet/Diphth/Acel, Pertussis (oldterm) 03/06/08 Given 1Result Comment: [06/29/2018] VIS sheet given, pt tolerated [id number] Comment: Patient tolerated well NS.3Admin Note: [place] Sqje2Cvupm Note: Aemslocg7Zqbca Note: [facility] Medications acetaminophen 325 mg oral tablet 650 mg, 2, tablet, By Mouth, Every 4 hours, PRN, # 50 tablet, Refills 0, Tot. Refills 0, Maintenance, as needed for pain, 05/12/22 11:26:00 EDT, Route to Pharmacy Electronically, [facility] #[id number], Partial fill upon patient request if the pr... Start Date: 05/12/22 Status: Orderedbaclofen 10 mg oral tablet 1, tablet, By Mouth, Daily, PRN, # 30 tablet, Refills 0, NEEDED FOR MUSCLE SPASMS, Route to Pharmacy Electronically, [facility] #[id number], 158, cm, 03/25/21 13:19:00 EDT, Height, 83.6, kg, 04/03/20 7:47:00 EDT, Dry Weight Start Date: 12/23/21 Status: OrderedCamila 0.35 mg oral tablet 1 tablet = 0.35 mg, By Mouth, Daily, # 28 tablet, 6 Refills, Maintenance, 05/12/22 11:26:00 EDT, Tablet, [facility] #[id number], Partial fill upon patient request if the prescription is for a schedule II opioid drug., 158, cm, 05/12/22 10:43:00 E... Start Date: 05/12/22 Status: OrderedclonazePAM 1 mg oral tablet 1 tablet = 1 mg, By Mouth, 2 times a day, # 60 tablet, 1 Refills, Maintenance, 07/30/19 11:44:00 EDT Start Date: 07/30/19 Stop Date: 09/28/19 Status: OrderedcloNIDine 0.2 mg oral tablet See Instructions, # 60 tablet, Refills 5 Tot. Refills 5, TAKE 1 TABLET BY MOUTH TWICE DAILY, [facility] #[id number] Start Date: 07/31/19 Status: Orderedfluticasone 50 mcg/inh nasal spray See Instructions, SHAKE LIQUID AND USE 1 SPRAY IN EACH NOSTRIL TWICE DAILY, # 16 Gm, 5 Refills, Maintenance, 04/25/21 9:43:00 EDT, [facility] #[id number], 30, SHAKE LIQUID AND USE 1 SPRAY IN EACH NOSTRIL TWICE DAILY, 158, cm, 03/25/21 13:19:00 ED... Start Date: 04/25/21 Status: Orderedibuprofen 600 mg oral tablet 600 mg, 1, tablet, By Mouth, Every 6 hours, # 50 tablet, Refills 0, Tot. Refills 0, Maintenance, 05/12/22 11:26:00 EDT, Route to Pharmacy Electronically, [facility] #[id number], Partial fill upon patient request if the prescription is for a sched... Start Date: 05/12/22 Status: OrderedMethadone 140, By Mouth, Daily, 0 Refills, Maintenance, 04/28/22 14:29:00 EDT, Partial fill upon patient request if the prescription is for a schedule II opioid drug. Start Date: 04/28/22 Status: OrderedNeurontin 300 mg oral capsule 900 mg, 3, capsule, By Mouth, 3 times a day, # 270 capsule, Refills 5, Tot. Refills 5, Maintenance, 03/28/19 13:00:13 EDT, Route to Pharmacy Electronically, [id number], [facility] Start Date: 03/28/19 Stop Date: 09/24/19 Status: OrderedQUEtiapine 400 mg oral tablet See Instructions, # 30 tablet, Refills 5 Tot. Refills 5, TAKE 1 TABLET BY MOUTH DAILY AT BEDTIME, [facility] #[id number] Start Date: 08/09/19 Status: Ordered Problem List Condition Effective Dates Status Health Status Informant Anxiety disorder(Confirmed) Active Depression(Confirmed)1 Active Hepatitis C(Confirmed) Active History of substance abuse(Confirmed) Active Hypercholesterolemia(Confirmed) 11/24/10 Active Migraine(Confirmed)2 Active Obese class II(Confirmed) Active Opioid dependence on maintenance Active agonist [...] and they tend to make her heart race.6htvtjdutyqfmm6Flzh in years, clonazepam 1mg bid. Has seen neuro in past. Vital Signs Most recent to oldest 1 2 3 [Reference Range]: Weight 90.4 kg (05/13/22 7:57 AM) Oxygen Saturation [94-100 %] 100 % 98 % 97 % (05/13/22 10:00 AM) (05/13/22 9:45 AM) (05/13/22 7: 57 AM) Pulse Rate [55-90 bpm] 82 bpm (05/13/22 7:57 AM) Blood Pressure [90-138/55-84 105/82 mm Hg 106/83 mm Hg 111 /68 mm Hg mm Hg] (05/13/22 10:00 AM) (05/13/22 9:45 AM) (05/13/22 7: 57 AM) Respiratory Rate [16-30 15 br/min 12 br/min 14 br/mi n br/min] *L* *L* *L* (05/13/22 10:00 AM) (05/13/22 9:45 AM) (05/13/22 7: 57 AM) Temperature [96.8-100.4 DegF] 97.8 DegF 97.8 DegF (05/13/22 9:45 AM) (05/13/22 7:57 AM) Liters per Minute 4 L/min (05/13/22 9:45 AM) Mode of Delivery (Oxygen) Room air Room air Simple face mask (05/13/22 10:30 AM) (05/13/22 10:00 AM) (05/13/22 9 :45 AM) Blood pressure sites Arm, left (05/13/22 9:45 AM) Temperature Route Temporal Temporal (05/13/22 9:45 AM) (05/13/22 7:57 AM) Social History Social History Type Response Tobacco Use: 4 or less cigarettes(le ss than 1/4 pack)/day in last 30 days. Other: 3 cigs/day, 26 year smoking history.. Sex
--- OUTSIDE RECORDS SUMMARY | 2022-08-09 21:00 | XMS_ITS | Continuity of Care Document ---
:1980 Author Organization [facility] Address [address] [place] [address]- Care Team Providers Name Role Phone Brenda SRIVASTAVA, Michael Primary Care Physician En[place] [facility] [place](s): 12/26/19 - 01/02/20 [facility] [address] [place] [address]- [facility] Encounter Diagnosis Well adult exam (Discharge Diagnosis) - 12/28/19 Major depression, recurrent (Discharge Diagnosis) - 12/28/19 Spasm of muscle (Discharge Diagnosis) - 12/28/19 Attending Physician: Michael Gutierrez MD Referring Physician: Alejandro Galindo MD Allergies, Adverse Reactions, Alerts Substance Reaction Severity Status NKA Active Immunizations Given and Recorded Vaccine Date Status Refusal Reason influenza virus vaccine, inactivated1 11/07/19 Given influenza virus vaccine, inactivated2 08/28/17 Given influenza virus vaccine, inactivated3 10/02/15 Given tetanus/diphtheria/pertussis, acel(Tdap)4 06/29/18 Given Afluria (oldterm)5 07/13/16 Given Tet/Diphth/Acel, Pertussis (oldterm) 03/06/08 Given 1Result Comment: Patient tolerated well NS.2Admin Note: [place] Nrdq8Nnsqs Note: Mnangflm0Zktakx Comment: [06/29/2018] VIS sheet given, pt tolerated [id number] Note: [facility] Medications baclofen 10 mg oral tablet 1, tablet, By Mouth, Daily, PRN, # 30 tablet, Refills 0, Tot. Refills 0, Maintenance, NEEDED FOR MUSCLE SPASMS, 12/26/19 15:03:00 EST, Route to Pharmacy Electronically, [facility] #[id number], 158.5, cm, 12/26/19 14:30:00 EST, Height, 56.3, [...] TAKE 1 TABLET BY MOUTH TWICE DAILY, [facility] #[id number] Start Date: 07/31/19 Status: OrderedNeurontin 300 mg oral capsule 900 mg, 3, capsule, By Mouth, 3 times a day, # 270 capsule, Refills 5, Tot. Refills 5, Maintenance, 03/28/19 13:00:13 EDT, Route to Pharmacy Electronically, [id number], [facility] [address] Start Date: 03/28/19 Stop Date: 09/24/19 Status: OrderedQUEtiapine 400 mg oral tablet See Instructions, # 30 tablet, Refills 5 Tot. Refills 5, TAKE 1 TABLET BY MOUTH DAILY AT BEDTIME, [facility] #[id number] Start Date: 08/09/19 Status: OrderedSuboxone 8 mg-2 mg sublingual film 2 each, Sublingual, Daily, # 60 each, 0 Refills, Maintenance, 07/15/16 14:28:07 Start Date: 07/15/16 Stop Date: 08/14/16 Status: Ordered Problem List Condition Effective Dates Status Health Status Informant Anxiety disorder(Confirmed) Active ASCUS of cervix with negative high Active risk HPV(Confirmed) Echogenic bowel of fetus(Confirmed) Active History of abdominal Active hernia(Confirmed)1 Hepatitis C(Confirmed) Active History of substance abuse(Confirmed) Active [facility] colpo patient(Confirmed)2, 3 06/2016 Active Hypercholesterolemia(Confirmed) 11/24/10 Active Migraine(Confirmed)4 Active AMA (advanced maternal age) Active multigravida 35+(Confirmed) Opioid dependence on maintenance Active agonist therapy, no symptoms(Confirmed)5 Major depression, recurrent(Confirmed) Active Hx of Seizures(Confirmed)6 Active Spasm of muscle(Confirmed) Active 1Repaired surgically.2ECC, Biopsy neg x1, equiv x 1. Will repeat cotesting in one year.3h/o recurrent + HPV at other location. 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 Managed by pcp mainly, but reports has tried many meds and none seem to work and they tend to make her heart race.6drxkzpqgwwuwq2 None in years, clonazepam 1mg bid. Has seen neuro in past. Diagnosis Diagnosis Type Effective Dates Health Status Clinical In formant Service Spasm of muscle Discharge 12/28/19 Diagnosis Major Discharge 12/28/19 depression, Diagnosis recurrent Well adult exam Discharge 12/28/19 Diagnosis Vital Signs Most recent to oldest [Reference Range]: 1 Height 158.5 cm (12/26/19 2:30 PM) Weight 76.3 kg (12/26/19 2:30 PM) Oxygen Saturation [94-100 %] 96 % (12/26/19 2:30 PM) Pulse Rate [55-90 bpm] 101 bpm *H* (12/26/19 2:30 PM) Body Mass Index [18.5-24.99] 30.37 *>HHI* (12/26/19 2:30 PM) Blood Pressure [90-138/55-84 mm Hg] 80/52 mm Hg *L* (12/26/19 2:30 PM) Temperature [96.8-100.4 DegF] 99 DegF (12/26/19 2:30 PM) Mode of Delivery (Oxygen) Room air (12/26/19 2:30 PM) Blood pressure sites Arm, left (12/26/19 2:30 PM) Temperature Route Oral (12/26/19 2:30 PM) Weight Obtained Via Standing scale (12/26/19 2:30 PM) Social History Social History Type Response Tobacco Use: 4 or less cigarettes(le ss than 1/4 pack)/day in last 30 days. Other: 1ppd prior to p regnancy and now down to 1pack/week.. Sex
--- OUTSIDE RECORDS SUMMARY | 2022-08-09 21:00 | XMS_ITS | Continuity of Care Document ---
:1980 Author Organization [facility] Address [address] [place] [address]- Care Team Providers Name Role Phone Michael Gutierrez MD Primary Care Physician En[facility] [place] Date(s): 02/04/20 - 02/14/20 [facility] [address] [place] [address] [facility] Attending Physician: Admtr, Mustapha8 Admitting Physician: Admtr, Mustapha8 Referring Physician: Admtr, Ar8 Allergies, Adverse Reactions, [...] Comment: [06/29/2018] VIS sheet given, pt tolerated [id number] Comment: Patient tolerated well NS.3Admin Note: [place] Xvma0Tehuy Note: [id number] Note: [facility] Medications Alcohol Pads See Instructions, # [...] 12/26/19 15:03:00 EST, Route to Pharmacy Electronically, [facility] #[id number], 158.5, cm, 12/26/19 14:30:00 EST, Height, 56.3, [...] TAKE 1 TABLET BY MOUTH TWICE DAILY, [facility] #[id number] Start Date: 07/31/19 Status: OrderedFreestyle Lite Lancets [...] 03/28/19 13:00:13 EDT, Route to Pharmacy Electronically, [id number], [facility] Start Date: 03/28/19 Stop Date: 09/24/19 Status: OrderedQUEtiapine 400 mg oral tablet See Instructions, # 30 tablet, Refills 5 Tot. Refills 5, TAKE 1 TABLET BY MOUTH DAILY AT BEDTIME, [facility] #[id number] Start Date: 08/09/19 Status: OrderedSuboxone 8 mg-2 [...] and they tend to make her heart race.[id number] None in years, clonazepam 1mg bid. Has seen neuro in past. Social History Social History Type Response Tobacco Use: 4 or less cigarettes(le ss than 1/4 pack)/day in last 30 days. Other: 1ppd prior to p regnancy and now down to 1pack/week.. Sex
--- OUTSIDE RECORDS SUMMARY | 2022-08-09 21:00 | XMS_ITS | Continuity of Care Document ---
:1980 Author Organization [facility] Address [address] [place] [address]- Care Team Providers Name Role Phone Brenda SRIVASTAVA, Michael Primary Care Physician [place] [facility] [place] - 04/11/[address] [address] Attending Physician: Orquidea Altamirano MD Admitting Physician: Orquidea Altamirano MD Referring Physician: Nancy Riley MD Allergies, Adverse Reactions, Alerts Substance Reaction Severity Status NKA Active Immunizations Given and Recorded Vaccine Date Status Refusal Reason tetanus/diphtheria/pertussis, acel(Tdap) 01/09/20 Given tetanus/diphtheria/pertussis, acel(Tdap)1 06/29/18 Given influenza virus vaccine, inactivated2 11/07/19 Given influenza virus vaccine, inactivated3 08/28/17 Given influenza virus vaccine, inactivated4 10/02/15 Given Afluria (oldterm)5 07/13/16 Given Tet/Diphth/Acel, Pertussis (oldterm) 03/06/08 Given 1Result Comment: [06/29/2018] VIS sheet given, pt tolerated [id number] Comment: Patient tolerated well NS.3Admin Note: Casar Cpog1Jqrfv Note: Wackrzbx7Tijzm Note: [facility] Medications Alcohol Pads See Instructions, # [...] Refills 0, Maintenance, NEEDED FOR MUSCLE SPASMS, 03/19/20 10:46:00 EDT, Route to Pharmacy Electronically, [facility] #[id number], 158.5, cm, 02/13/20 13:28:00 EDT, Height, 56.3, kg... Start Date: 03/19/20 Status: OrderedclonazePAM 1 mg oral tablet 1 tablet = 1 mg, By Mouth, 2 times a day, # 60 tablet, 1 Refills, Maintenance, 07/30/19 11:44:00 EDT Start Date: 07/30/19 Stop Date: 09/28/19 Status: OrderedcloNIDine 0.2 mg oral tablet See Instructions, # 60 tablet, Refills 5 Tot. Refills 5, TAKE 1 TABLET BY MOUTH TWICE DAILY, [facility] #[id number] Start Date: 07/31/19 Status: OrderedFreestyle Lite Lancets [...] 03/28/19 13:00:13 EDT, Route to Pharmacy Electronically, [id number], [facility] [address] Start Date: 03/28/19 Stop Date: 09/24/19 Status: OrderedOrtho Micronor 0.35 mg oral tablet 1 tablet = 0.35 mg, By Mouth, Daily, # 84 tablet, 2 Refills, Maintenance, 04/06/20 9:47:00 EDT, Tablet, [facility] #[id number], 158, cm, 04/06/20 8:25:00 EDT, Height, 83.6, kg, 04/03/20 7:47:00 EDT, Dry Weight Start Date: 04/06/20 Status: OrderedPreNatal 19 (Nationwide) oral tablet, chewable 1 tablet, Daily, 0 Refills, Maintenance, 04/03/20 8:09:00 EDT Start Date: 04/03/20 Status: OrderedQUEtiapine 400 mg oral tablet See Instructions, # 30 tablet, Refills 5 Tot. Refills 5, TAKE 1 TABLET BY MOUTH DAILY AT BEDTIME, [facility] #[id number] Start Date: 08/09/19 Status: OrderedSuboxone 8 mg-2 mg sublingual film 2 each, Sublingual, Daily, # 60 each, 0 Refills, Maintenance, 07/15/16 14:28:07 Start Date: 07/15/16 Stop Date: 08/14/16 Status: Ordered Problem List Condition Effective Dates Status Health Status Informant Anxiety disorder(Confirmed) Active ASCUS of cervix with negative high Active risk HPV(Confirmed) Breech presentation of Active fetus(Confirmed) Cigarette smoker motivated to Active quit(Confirmed) Depression(Confirmed)1 [...] and they tend to make her heart race.[id number] in years, clonazepam 1mg bid. Has seen neuro in past. Social History Social History Type Response Tobacco Use: 4 or less cigarettes(le ss than 1/4 pack)/day in last 30 days. Other: 1ppd prior to p regnancy and now down to 1pack/week.. Sex
--- OUTSIDE RECORDS SUMMARY | 2022-08-09 21:00 | XMS_ITS | Continuity of Care Document ---
:1980 Author Organization [facility] Address [address] [place] [id number]- Care Team Providers Name Role Phone Brenda SRIVASTAVA, Michael Primary Care Physician Encounter [facility] Date(s): 05/28/20 - 06/27/20 [facility] [address] [place] [address]- [facility] Allergies, Adverse Reactions, Alerts Substance Reaction Severity Status NKA Active Immunizations Given and Recorded Vaccine Date Status Refusal Reason tetanus/diphtheria/pertussis, acel(Tdap) 01/09/20 Given tetanus/diphtheria/pertussis, acel(Tdap)1 06/29/18 Given influenza virus vaccine, inactivated2 11/07/19 Given influenza virus vaccine, inactivated3 08/28/17 Given influenza virus vaccine, inactivated4 10/02/15 Given Afluria (oldterm)5 07/13/16 Given Tet/Diphth/Acel, Pertussis (oldterm) 03/06/08 Given 1Result Comment: [06/29/2018] VIS sheet given, pt tolerated [id number] Comment: Patient tolerated well NS.3Admin Note: [place] Xglq8Bkiyu Note: Fqcdjoru9Mrahe Note: [facility] Medications Alcohol Pads See Instructions, # [...] Refills 0, Maintenance, NEEDED FOR MUSCLE SPASMS, 06/08/20 9:49:00 EDT, Route to Pharmacy Electronically, [facility] #[id number], 158, cm, 05/21/20 14:00:00 EDT, Height, 83.6, kg, 0... Start Date: 06/08/20 Status: OrderedclonazePAM 1 mg oral tablet 1 tablet = 1 mg, By Mouth, 2 times a day, # 60 tablet, 1 Refills, Maintenance, 07/30/19 11:44:00 EDT Start Date: 07/30/19 Stop Date: 09/28/19 Status: OrderedcloNIDine 0.2 mg oral tablet See Instructions, # 60 tablet, Refills 5 Tot. Refills 5, TAKE 1 TABLET BY MOUTH TWICE DAILY, [facility] #[id number] Start Date: 07/31/19 Status: OrderedFreestyle Lite Lancets [...] 03/28/19 13:00:13 EDT, Route to Pharmacy Electronically, [id number], [facility] Start Date: 03/28/19 Stop Date: 09/24/19 Status: OrderedOrtho Micronor 0.35 mg oral tablet 1 tablet = 0.35 mg, By Mouth, Daily, # 84 tablet, 2 Refills, Maintenance, 04/06/20 9:47:00 EDT, Tablet, [facility] #10689, 158, cm, 04/06/20 8:25:00 EDT, Height, 83.6, kg, 04/03/20 7:47:00 EDT, Dry Weight Start Date: 04/06/20 Status: OrderedPreNatal 19 (Nationwide) oral tablet, chewable 1 tablet, Daily, 0 Refills, Maintenance, 04/03/20 8:09:00 EDT Start Date: 04/03/20 Status: OrderedQUEtiapine 400 mg oral tablet See Instructions, # 30 tablet, Refills 5 Tot. Refills 5, TAKE 1 TABLET BY MOUTH DAILY AT BEDTIME, [facility] #[id number] Start Date: 08/09/19 Status: OrderedReadi-Cat 2 oral suspension See Instructions, PATIENT HAS INSTRUCTIONS, # 2 each, 0 Refills, Maintenance, 04/22/20 14:54:00 EDT,[facility] #[id number], PATIENT HAS INSTRUCTIONS, 158, cm, 04/22/20 13:06:00 [...] and they tend to make her heart race.0ekyatwukisdkn2Ezdt in years, clonazepam 1mg bid. Has seen neuro in past. Social History Social History Type Response Tobacco Use: 4 or less cigarettes(le ss than 1/4 pack)/day in last 30 days. Other: 1ppd prior to p regnancy and now down to 1pack/week.. Sex
--- OUTSIDE RECORDS SUMMARY | 2022-08-09 21:00 | XMS_ITS | Continuity of Care Document ---
:1980 Author Organization [facility] Address [address] [place] [address]- Care Team Providers Name Role Phone Michael Gutierrez MD Primary Care Physician Encounter [facility] [place] Date(s): 03/25/21 - 04/01/21 [facility] [address] [place] [address]- Encounter Diagnosis Spasm of muscle (Discharge Diagnosis) - 03/28/21 Attending Physician: Michael Gutierrez MD Allergies, Adverse Reactions, [...] Comment: [06/29/2018] VIS sheet given, pt tolerated [id number] Comment: Patient tolerated well NS.3Admin Note: [place] Uwfd5Ovcpi Note: Uqmopqkd5Qromi Note: [facility] Medications Alcohol Pads See Instructions, # 1 pack/packet, Refills 1, Tot. Refills 1, Maintenance, Z34.81: Please test bloodsugars 4 times a day and as needed, 02/13/20 14:20:00 EDT, Compound, 158.5, cm, 02/13/20 13:28:00 EDT, Height, 56.3, kg, 03/21/19 12:47:00 EDT, Dry We... Start Date: 02/13/20 Status: Orderedbaclofen 10 mg oral tablet 1, tablet, By Mouth, Daily, PRN, # 30 tablet, Refills 1, Tot. Refills 1, Maintenance, NEEDED FOR MUSCLE SPASMS, 03/25/21 16:13:00 EDT, Route to Pharmacy Electronically, [facility] #[id number], 158, cm, 03/25/21 13:19:00 EDT, Height, 83.6, kg,... Start Date: 03/25/21 Status: OrderedclonazePAM 1 mg oral tablet 1 tablet = 1 mg, By Mouth, 2 times a day, # 60 tablet, 1 Refills, Maintenance, 07/30/19 11:44:00 EDT Start Date: 07/30/19 Stop Date: 09/28/19 Status: OrderedcloNIDine 0.2 mg oral tablet See Instructions, # 60 tablet, Refills 5 Tot. Refills 5, TAKE 1 TABLET BY MOUTH TWICE DAILY, [facility] #[id number] Start Date: 07/31/19 Status: OrderedFlonase 50 mcg/inh nasal spray 1 sprays, Nares, Both, 2 times a day, # 16 Gm, 0 Refills, Maintenance, 03/25/21 16:13:00 EDT, [place] #[id number], Partial fill upon patient request if the prescription is for a scheduleII opioid drug., 1 sprays Nares, Both 2 times a d... Start Date: 03/25/21 Status: OrderedFreestyle Lite Lancets See Instructions, # [...] 03/28/19 13:00:13 EDT, Route to Pharmacy Electronically, [id number], [facility] [address] Start Date: 03/28/19 Stop Date: 09/24/19 Status: OrderedOrtho Micronor 0.35 mg oral tablet 1 tablet = 0.35 mg, By Mouth, Daily, # 84 tablet, 2 Refills, Maintenance, 04/06/20 9:47:00 EDT, Tablet, [facility] #75239, 158, cm, 04/06/20 8:25:00 EDT, Height, 83.6, kg, 04/03/20 7:47:00 EDT, Dry Weight Start Date: 04/06/20 Status: OrderedPreNatal 19 (Nationwide) oral tablet, chewable 1 tablet, Daily, 0 Refills, Maintenance, 04/03/20 8:09:00 EDT Start Date: 04/03/20 Status: OrderedQUEtiapine 400 mg oral tablet See Instructions, # 30 tablet, Refills 5 Tot. Refills 5, TAKE 1 TABLET BY MOUTH DAILY AT BEDTIME, [facility] #[id number] Start Date: 08/09/19 Status: OrderedReadi-Cat 2 oral suspension See Instructions, PATIENT HAS INSTRUCTIONS, # 2 each, 0 Refills, Maintenance, 04/22/20 14:54:00 EDT,[facility] #[id number], PATIENT HAS INSTRUCTIONS, 158, cm, 04/22/20 13:06:00 [...] and they tend to make her heart race.5surrxkmyxsrzs6Uvnd in years, clonazepam 1mg bid. Has seen neuro in past. Diagnosis Diagnosis Type Effective Dates Health Status Clinical In formant Service Spasm of muscle Discharge 03/28/21 Diagnosis Vital Signs Most recent to oldest [Reference Range]: 1 Height 158 cm (03/25/21 1:19 PM) Weight 73 kg (03/25/21 1:19 PM) Body Mass Index [18.5-24.99] 29.24 *H* (03/25/21 1:19 PM) Weight Obtained Via Patient/family stated (03/25/21 1:19 PM) Social History Social History Type Response Tobacco Use: 4 or less cigarettes(le ss than 1/4 pack)/day in last 30 days. Other: 1ppd prior to p regnancy and now down to 1pack/week.. Sex
--- OUTSIDE RECORDS SUMMARY | 2022-08-09 21:00 | XMS_ITS | Continuity of Care Document ---
:1980 Author Organization [facility] Adult Address [address] [place] [address]- Care Team Providers Name Role Phone Brenda SRIVASTAVA, Michael Primary Care Physician [facility]counter [facility] Date(s): 03/11/21 - 04/10/21 [facility] [address] [place] [address]- Allergies, Adverse Reactions, Alerts Substance Reaction Severity Status NKA Active Immunizations Given and Recorded Vaccine Date Status Refusal Reason tetanus/diphtheria/pertussis, acel(Tdap) 01/09/20 Given tetanus/diphtheria/pertussis, acel(Tdap)1 06/29/18 Given influenza virus vaccine, inactivated2 11/07/19 Given influenza virus vaccine, inactivated3 08/28/17 Given influenza virus vaccine, inactivated4 10/02/15 Given Afluria (oldterm)5 07/13/16 Given Tet/Diphth/Acel, Pertussis (oldterm) 03/06/08 Given 1Result Comment: [06/29/2018] VIS sheet given, pt tolerated [id number] Comment: Patient tolerated well NS.3Admin Note: [place] Jvha0Kevkz Note: Qxbebgdv5Uwlnf Note: [facility] Medications Alcohol Pads See Instructions, # 1 [...] 03/25/21 16:13:00 EDT, Route to Pharmacy Electronically, [facility] #[id number], 158, cm, 03/25/21 13:19:00 EDT, Height, 83.6, [...] TAKE 1 TABLET BY MOUTH TWICE DAILY, [facility] #[id number] Start Date: 07/31/19 Status: OrderedFlonase 50 mcg/inh nasal spray 1 sprays, Nares, Both, 2 times a day, # 16 Gm, 0 Refills, Maintenance, 03/25/21 16:13:00 EDT, [place] #[id number], Partial fill upon patient request if the [...] 03/28/19 13:00:13 EDT, Route to Pharmacy Electronically, [id number], [facility] [address] Start Date: 03/28/19 Stop Date: 09/24/19 Status: OrderedOrtho Micronor 0.35 mg oral tablet 1 tablet = 0.35 mg, By Mouth, Daily, # 84 tablet, 2 Refills, Maintenance, 04/06/20 9:47:00 EDT, Tablet, [facility] #39412, 158, cm, 04/06/20 8:25:00 EDT, Height, 83.6, kg, 04/03/20 7:47:00 EDT, Dry Weight Start Date: 04/06/20 Status: OrderedPreNatal 19 (Nationwide) oral tablet, chewable 1 tablet, Daily, 0 Refills, Maintenance, 04/03/20 8:09:00 EDT Start Date: 04/03/20 Status: OrderedQUEtiapine 400 mg oral tablet See Instructions, # 30 tablet, Refills 5 Tot. Refills 5, TAKE 1 TABLET BY MOUTH DAILY AT BEDTIME, [facility] #[id number] Start Date: 08/09/19 Status: OrderedReadi-Cat 2 oral suspension See Instructions, PATIENT HAS INSTRUCTIONS, # 2 each, 0 Refills, Maintenance, 04/22/20 14:54:00 EDT,[facility] #93072, PATIENT HAS INSTRUCTIONS, 158, cm, 04/22/20 13:06:00 [...] and they tend to make her heart race.8knxrzpuvfests9Bqpx in years, clonazepam 1mg bid. Has seen neuro in past. Social History Social History Type Response Tobacco Use: 4 or less cigarettes(le ss than 1/4 pack)/day in last 30 days. Other: 1ppd prior to p regnancy and now down to 1pack/week.. Sex
--- OUTSIDE RECORDS SUMMARY | 2022-08-09 21:00 | XMS_ITS | Continuity of Care Document ---
:1980 Author Organization [facility] p Address [address] [place] [address], [address] [place] [address]- Care Team Providers Name Role Phone Brenda SRIVASTAVA, Michael Primary Care Physician Encounter [facility] Date(s): 11/07/19 - 11/14/19 [facility] [address] [place] [address], [address] [place] [address]- Attending Physician: Suzanne Portillo MD Referring Physician: Alejandro Galindo MD Allergies, Adverse Reactions, Alerts Substance Reaction Severity Status NKA Active Immunizations Given and Recorded Vaccine Date Status Refusal Reason influenza virus vaccine, inactivated1 11/07/19 Given influenza virus vaccine, inactivated2 08/28/17 Given influenza virus vaccine, inactivated3 10/02/15 Given tetanus/diphtheria/pertussis, acel(Tdap)4 06/29/18 Given Afluria (oldterm)5 07/13/16 Given Tet/Diphth/Acel, Pertussis (oldterm) 03/06/08 Given 1Result Comment: Patient tolerated well NS.2Admin Note: [place] Emrd3Uiaep Note: Wptbqhfd7Cmktnn Comment: [06/29/2018] VIS sheet given, pt tolerated [id number] Note: [facility] Medications baclofen 10 mg oral tablet 1, tablet, By Mouth, 2 times a day, PRN, # 60 tablet, Refills 0, Tot. Refills 0, Maintenance, NEEDED FOR MUSCLE SPASMS, 11/14/19 10:40:00 EST, Route to Pharmacy Electronically, [facility] #[id number], 157.4, cm, 11/07/19 15:22:00 EST, Height,... Start Date: 11/14/19 Status: OrderedclonazePAM 1 mg oral tablet 1 tablet = 1 mg, By Mouth, 2 times a day, # 60 tablet, 1 Refills, Maintenance, 07/30/19 11:44:00 EDT Start Date: 07/30/19 Stop Date: 09/28/19 Status: OrderedcloNIDine 0.2 mg oral tablet See Instructions, # 60 tablet, Refills 5 Tot. Refills 5, TAKE 1 TABLET BY MOUTH TWICE DAILY, [facility] #[id number] Start Date: 07/31/19 Status: OrderedNeurontin 300 mg oral capsule 900 mg, 3, capsule, By Mouth, 3 times a day, # 270 capsule, Refills 5, Tot. Refills 5, Maintenance, 03/28/19 13:00:13 EDT, Route to Pharmacy Electronically, [id number], [facility] [address] Start Date: 03/28/19 Stop Date: 09/24/19 Status: OrderedQUEtiapine 400 mg oral tablet See Instructions, # 30 tablet, Refills 5 Tot. Refills 5, TAKE 1 TABLET BY MOUTH DAILY AT BEDTIME, [facility] #[id number] Start Date: 08/09/19 Status: OrderedSuboxone 8 mg-2 mg sublingual film 2 each, Sublingual, Daily, # 60 each, 0 Refills, Maintenance, 07/15/16 14:28:07 Start Date: 07/15/16 Stop Date: 08/14/16 Status: Ordered Problem List Condition Effective Dates Status Health Status Informant Anxiety disorder(Confirmed) Active Cigarette smoker motivated to Active quit(Confirmed) Depression(Confirmed)1 Active History of abdominal Active hernia(Confirmed)2 H/o Heart murmur(Confirmed) Active Hepatitis C(Confirmed) Active History of substance abuse(Confirmed) Active [facility] colpo patient(Confirmed)3, 4 06/2016 Active Hypercholesterolemia(Confirmed) 11/24/10 Active Migraine(Confirmed)5 Active AMA (advanced maternal age) Active multigravida 35+(Confirmed) Opioid dependence on maintenance Active agonist therapy, no symptoms(Confirmed)6 PTSD (post-traumatic stress Active disorder)(Confirmed) Hx of Seizures(Confirmed)7 Active 1Has therapist, tries to see q2wks, [...] and they tend to make her heart race.3flnmeonyyovbr8Ainr in years, clonazepam 1mg bid. Has seen neuro in past. Vital Signs Most recent to oldest [Reference Range]: 1 Height 157.40 cm (11/07/19 3:22 PM) Weight 71.28 kg (11/07/19 3:22 PM) Body Mass Index [18.5-24.99] 28.77 *H* (11/07/19 3:22 PM) Blood Pressure [90-138/55-84 mm Hg] 106/65 mm Hg (11/07/19 3:22 PM) Blood pressure sites Arm, right (11/07/19 3:22 PM) Weight Obtained Via Standing scale (11/07/19 3:22 PM) Social History Social History Type Response Tobacco Use: 4 or less cigarettes(le ss than 1/4 pack)/day in last 30 days. Other: 1ppd prior to p regnancy and now down to 1pack/week.. Sex
--- OUTSIDE RECORDS SUMMARY | 2022-08-09 21:00 | XMS_ITS | Continuity of Care Document ---
:1980 Author Organization [facility] ic Address [address] [place] [address]- Care Team Providers Name Role Phone Michael Gutierrez MD Primary Care Physician Encounter [facility] Date(s): 05/09/22 - 06/24/[address] [id number] Attending Physician: Not on Staff, Attending MD Allergies, Adverse Reactions, Alerts No Known Allergies Immunizations Given and Recorded Vaccine Date Status Refusal Reason SARS-CoV-2 (COVID-19) mRNA BNT-162b2 vac 03/18/21 Recorde d SARS-CoV-2 (COVID-19) mRNA BNT-162b2 vac 02/25/21 Recorde d tetanus/diphtheria/pertussis, acel(Tdap) 01/09/20 Given tetanus/diphtheria/pertussis, acel(Tdap)1 06/29/18 Given influenza virus vaccine, inactivated2 11/07/19 Given influenza virus vaccine, inactivated3 08/28/17 Given influenza virus vaccine, inactivated 08/21/17 Recorded influenza virus vaccine, inactivated4 10/02/15 Given Afluria (oldterm)5 07/13/16 Given Tet/Diphth/Acel, Pertussis (oldterm) 03/06/08 Given 1Result Comment: [06/29/2018] VIS sheet given, pt tolerated [id number] Comment: Patient tolerated well NS.3Admin Note: [place] Luah3Nuhwj Note: Tpzwsgwq4Bbegh Note: [facility] Medications baclofen 10 mg oral tablet 1, tablet, By Mouth, Daily, PRN, # 30 tablet, Refills 0, Tot. Refills 0, NEEDED FOR MUSCLE SPASMS, 06/14/22 11:41:00 EDT, Route to Pharmacy Electronically, [facility] #[id number], 158, cm, 06/14/22 8:47:00 EDT, Height Start Date: 06/14/22 Status: OrderedCamila 0.35 mg oral tablet 1 tablet = 0.35 mg, By Mouth, Daily, # 28 tablet, 6 Refills, Maintenance, 05/12/22 11:26:00 EDT, Tablet, [facility] #20733, Partial fill upon patient request if the [...] TAKE 1 TABLET BY MOUTH TWICE DAILY, [facility] #19429 Start Date: 07/31/19 Status: Orderedfluticasone 50 mcg/inh nasal spray See Instructions, SHAKE LIQUID AND USE 1 SPRAY IN EACH NOSTRIL TWICE DAILY, # 16 Gm, 5 Refills, Maintenance, 04/25/21 9:43:00 EDT, [facility] #05505, 30, SHAKE LIQUID AND USE 1 SPRAY IN EACH NOSTRIL TWICE DAILY, 158, cm, 03/25/21 13:19:00 ED... Start Date: 04/25/21 Status: OrderedMethadone 140, By Mouth, Daily, 0 Refills, Maintenance, 04/28/22 14:29:00 EDT, Partial fill upon patient request if the prescription is for a schedule II opioid drug. Start Date: 04/28/22 Status: OrderedNeurontin 300 mg oral capsule 900 mg, 3, capsule, By Mouth, 3 times a day, # 270 capsule, Refills 5, Tot. Refills 5, Maintenance, 03/28/19 13:00:13 EDT, Route to Pharmacy Electronically, [id number], [facility] [address]10 Start Date: 03/28/19 Stop Date: 09/24/19 Status: OrderedQUEtiapine 400 mg oral tablet See Instructions, # 30 tablet, Refills 5 Tot. Refills 5, TAKE 1 TABLET BY MOUTH DAILY AT BEDTIME, [facility] #45217 Start Date: 08/09/19 Status: Ordered Problem List [...] and they tend to make her heart race.7swdogqnecqylu5Uodw in years, clonazepam 1mg bid. Has seen neuro in past. Social History Social History Type Response Tobacco Use: 4 or less cigarettes(le ss than 1/4 pack)/day in last 30 days. Other: 3 cigs/day, 26 year smoking history.. Sex Care Team PersonnelName: Michael Gutierrez MD Address: [address] [place], [place] [address]
--- OUTSIDE RECORDS SUMMARY | 2022-08-09 21:00 | XMS_ITS | Continuity of Care Document ---
:1980 Author Organization [facility] Adult Address [address] [place] [address]- Care Team Providers Name Role Phone Brenda SRIVASTAVA, Michael Primary Care Physician Encounter [facility] Date(s): 05/29/20 - 06/28/20 [facility] [address] [place] [phone]- [facility] Allergies, Adverse Reactions, Alerts Substance Reaction Severity Status NKA Active Immunizations Given and Recorded Vaccine Date Status Refusal Reason tetanus/diphtheria/pertussis, acel(Tdap) 01/09/20 Given tetanus/diphtheria/pertussis, acel(Tdap)1 06/29/18 Given influenza virus vaccine, inactivated2 11/07/19 Given influenza virus vaccine, inactivated3 08/28/17 Given influenza virus vaccine, inactivated4 10/02/15 Given Afluria (oldterm)5 07/13/16 Given Tet/Diphth/Acel, Pertussis (oldterm) 03/06/08 Given 1Result Comment: [06/29/2018] VIS sheet given, pt tolerated [id number] Comment: Patient tolerated well NS.3Admin Note: [place] Dabg5Pkgau Note: Gzgnlscl9Hbybr Note: [facility] Medications Alcohol Pads See Instructions, # [...] 06/08/20 9:49:00 EDT, Route to Pharmacy Electronically, [facility] #[id number], 158, cm, 05/21/20 14:00:00 EDT, Height, 83.6, [...] TAKE 1 TABLET BY MOUTH TWICE DAILY, [facility] #68190 Start Date: 07/31/19 Status: OrderedFreestyle Lite Lancets [...] 03/28/19 13:00:13 EDT, Route to Pharmacy Electronically, [id number], [facility] [address] Start Date: 03/28/19 Stop Date: 09/24/19 Status: OrderedOrtho Micronor 0.35 mg oral tablet 1 tablet = 0.35 mg, By Mouth, Daily, # 84 tablet, 2 Refills, Maintenance, 04/06/20 9:47:00 EDT, Tablet, [facility] #15948, 158, cm, 04/06/20 8:25:00 EDT, Height, 83.6, kg, 04/03/20 7:47:00 EDT, Dry Weight Start Date: 04/06/20 Status: OrderedPreNatal 19 (Nationwide) oral tablet, chewable 1 tablet, Daily, 0 Refills, Maintenance, 04/03/20 8:09:00 EDT Start Date: 04/03/20 Status: OrderedQUEtiapine 400 mg oral tablet See Instructions, # 30 tablet, Refills 5 Tot. Refills 5, TAKE 1 TABLET BY MOUTH DAILY AT BEDTIME, [facility] #16627 Start Date: 08/09/19 Status: OrderedReadi-Cat 2 oral suspension See Instructions, PATIENT HAS INSTRUCTIONS, # 2 each, 0 Refills, Maintenance, 04/22/20 14:54:00 EDT,[facility] #[id number], PATIENT HAS INSTRUCTIONS, 158, cm, 04/22/20 13:06:00 [...] and they tend to make her heart race.5diifhxeipoutb7Vblk in years, clonazepam 1mg bid. Has seen neuro in past. Social History Social History Type Response Tobacco Use: 4 or less cigarettes(le ss than 1/4 pack)/day in last 30 days. Other: 1ppd prior to p regnancy and now down to 1pack/week.. Sex
--- OUTSIDE RECORDS SUMMARY | 2022-08-09 21:00 | XMS_ITS | Continuity of Care Document ---
:1980 Author Organization [facility] p Address [address] [place] [address], [address] [place] [address]- Care Team Providers Name Role Phone Brenda SRIVASTAVA, Michael Primary Care Physician [place] [facility] Date(s): 11/27/19 - 12/07/19 [facility] [address], [address] [place] [address]- Attending Physician: Mercedez Barajas Admitting Physician: AdmtrMercedez Referring Physician: AdmtrMercedez Allergies, Adverse Reactions, Alerts Substance Reaction Severity Status NKA Active Immunizations Given and Recorded Vaccine Date Status Refusal Reason influenza virus vaccine, inactivated1 11/07/19 Given influenza virus vaccine, inactivated2 08/28/17 Given influenza virus vaccine, inactivated3 10/02/15 Given tetanus/diphtheria/pertussis, acel(Tdap)4 06/29/18 Given Afluria (oldterm)5 07/13/16 Given Tet/Diphth/Acel, Pertussis (oldterm) 03/06/08 Given 1Result Comment: Patient tolerated well NS.2Admin Note: [place] Rwlk3Mzisv Note: Lejuuedy0Eephjq Comment: [06/29/2018] VIS sheet given, pt tolerated ioic6Tyvjo Note: [facility] Medications baclofen 10 mg oral tablet 1, tablet, By Mouth, 2 times a day, PRN, # 60 tablet, Refills 0, Tot. Refills 0, Maintenance, NEEDED FOR MUSCLE SPASMS, 11/14/19 10:40:00 EST, Route to Pharmacy Electronically, [facility] #22543, 157.4, cm, 11/07/19 15:22:00 EST, Height,... Start [...] TAKE 1 TABLET BY MOUTH TWICE DAILY, [facility] #71404 Start Date: 07/31/19 Status: OrderedNeurontin 300 mg oral capsule 900 mg, 3, capsule, By Mouth, 3 times a day, # 270 capsule, Refills 5, Tot. Refills 5, Maintenance, 03/28/19 13:00:13 EDT, Route to Pharmacy Electronically, [id number], [facility] Start Date: 03/28/19 Stop Date: 09/24/19 Status: OrderedQUEtiapine 400 mg oral tablet See Instructions, # 30 tablet, Refills 5 Tot. Refills 5, TAKE 1 TABLET BY MOUTH DAILY AT BEDTIME, [facility] #28707 Start Date: 08/09/19 Status: OrderedSuboxone 8 mg-2 [...] fetus(Confirmed) Active History of abdominal Active hernia(Confirmed)2 H/o [...] and they tend to make her heart race.7dspfckoygjjyl2Oqin in years, clonazepam 1mg bid. Has seen neuro in past. Social History Social History Type Response Tobacco Use: 4 or less cigarettes(le ss than 1/4 pack)/day in last 30 days. Other: 1ppd prior to p regnancy and now down to 1pack/week.. Sex
--- OUTSIDE RECORDS SUMMARY | 2022-08-09 21:00 | XMS_ITS | Continuity of Care Document ---
:1980 Author Organization [facility] ic Address [address] [place] [address]- Care Team Providers Name Role Phone Michael Gutierrez MD Primary Care Physician [facility] [facility] [place](s): 05/25/22 - 06/24/[address] [address] Attending Physician: Mercedez Barajas Admitting Physician: AdmMercedez joel Referring Physician: AdmtrMercedez Allergies, Adverse Reactions, Alerts No Known Allergies [...] Comment: [06/29/2018] VIS sheet given, pt tolerated [id number] Comment: Patient tolerated well NS.3Admin Note: [place] Bkqb8Rsvfb Note: Pmcqruvj9Cwspg Note: [facility] Medications baclofen 10 mg oral tablet 1, tablet, By Mouth, Daily, PRN, # 30 tablet, Refills 0, Tot. Refills 0, NEEDED FOR MUSCLE SPASMS, 06/14/22 11:41:00 EDT, Route to Pharmacy Electronically, [facility] #69054, 158, cm, 06/14/22 8:47:00 EDT, Height Start Date: 06/14/22 Status: OrderedCamila 0.35 mg oral tablet 1 tablet = 0.35 mg, By Mouth, Daily, # 28 tablet, 6 Refills, Maintenance, 05/12/22 11:26:00 EDT, Tablet, [facility] #27099, Partial fill upon patient request if the [...] TAKE 1 TABLET BY MOUTH TWICE DAILY, [facility] #47726 Start Date: 07/31/19 Status: Orderedfluticasone 50 mcg/inh nasal spray See Instructions, SHAKE LIQUID AND USE 1 SPRAY IN EACH NOSTRIL TWICE DAILY, # 16 Gm, 5 Refills, Maintenance, 04/25/21 9:43:00 EDT, [facility] #81813, 30, SHAKE LIQUID AND USE 1 SPRAY [...] 03/28/19 13:00:13 EDT, Route to Pharmacy Electronically, [id number], [facility] [address] Start Date: 03/28/19 Stop Date: 09/24/19 Status: OrderedQUEtiapine 400 mg oral tablet See Instructions, # 30 tablet, Refills 5 Tot. Refills 5, TAKE 1 TABLET BY MOUTH DAILY AT BEDTIME, [facility] #29077 Start Date: 08/09/19 Status: Ordered Problem List [...] and they tend to make her heart race.9nudwxaripixmd0Ojkt in years, clonazepam 1mg bid. Has seen neuro in past. Social History Social History Type Response Tobacco Use: 4 or less cigarettes(le ss than 1/4 pack)/day in last 30 days. Other: 3 cigs/day, 26 year smoking history.. Sex Care Team PersonnelName: Brenda SRIVASTAVA, Michael Address: [address] [place] [address]
--- OUTSIDE RECORDS SUMMARY | 2022-08-09 21:00 | XMS_ITS | Continuity of Care Document ---
:1980 Author Organization [facility] Adult Address [address] [place] [address]- Care Team Providers Name Role Phone Michael Gutierrez MD Primary Care Physician [facility]counter [facility] Date(s): 04/20/21 - 08/18/21 [facility] [address] [place] [id number] Attending Physician: Michael Gutierrez MD Allergies, Adverse [...] Comment: [06/29/2018] VIS sheet given, pt tolerated [id number] Comment: Patient tolerated well NS.3Admin Note: [place] Scde6Sskmv Note: Fslzrfap0Phyoc Note: [facility] Medications Alcohol Pads See Instructions, # [...] FOR MUSCLE SPASMS, Route to Pharmacy Electronically, [facility] #68131, 158, cm, 03/25/21 13:19:00 EDT, Height, 83.6, [...] TAKE 1 TABLET BY MOUTH TWICE DAILY, [facility] #29164 Start Date: 07/31/19 Status: Orderedfluticasone 50 mcg/inh nasal spray See Instructions, SHAKE LIQUID AND USE 1 SPRAY IN EACH NOSTRIL TWICE DAILY, # 16 Gm, 5 Refills, Maintenance, 04/25/21 9:43:00 EDT, [facility] #56807, 30, SHAKE LIQUID AND USE 1 SPRAY [...] 03/28/19 13:00:13 EDT, Route to Pharmacy Electronically, [id number], [facility] [address] Start Date: 03/28/19 Stop Date: 09/24/19 Status: OrderedOrtho Micronor 0.35 mg oral tablet 1 tablet = 0.35 mg, By Mouth, Daily, # 84 tablet, 2 Refills, Maintenance, 04/06/20 9:47:00 EDT, Tablet, [facility] #36390, 158, cm, 04/06/20 8:25:00 EDT, Height, 83.6, kg, 04/03/20 7:47:00 EDT, Dry Weight Start Date: 04/06/20 Status: OrderedPreNatal 19 (Nationwide) oral tablet, chewable 1 tablet, Daily, 0 Refills, Maintenance, 04/03/20 8:09:00 EDT Start Date: 04/03/20 Status: OrderedQUEtiapine 400 mg oral tablet See Instructions, # 30 tablet, Refills 5 Tot. Refills 5, TAKE 1 TABLET BY MOUTH DAILY AT BEDTIME, [facility] #38458 Start Date: 08/09/19 Status: OrderedReadi-Cat 2 oral suspension See Instructions, PATIENT HAS INSTRUCTIONS, # 2 each, 0 Refills, Maintenance, 04/22/20 14:54:00 EDT,[facility] #31826, PATIENT HAS INSTRUCTIONS, 158, cm, 04/22/20 13:06:00 [...] and they tend to make her heart race.9zjragoksnbkao0Ijre in years, clonazepam 1mg bid. Has seen neuro in past. Social History Social History Type Response Tobacco Use: 4 or less cigarettes(le ss than 1/4 pack)/day in last 30 days. Other: 1ppd prior to p regnancy and now down to 1pack/week.. Sex
--- OUTSIDE RECORDS SUMMARY | 2022-08-09 21:00 | XMS_ITS | Continuity of Care Document ---
:1980 Author Organization [facility] ic Address [address] [place] [address]- Care Team Providers Name Role Phone Michael Gutierrez MD Primary Care Physician Encounter [facility] Date(s): 02/28/20 - 05/02/[address] [address] [facility] Attending Physician: Orquidea Altamirano MD Admitting Physician: [...] Comment: [06/29/2018] VIS sheet given, pt tolerated [id number] Comment: Patient tolerated well NS.3Admin Note: [place] Hnou5Cdqzn Note: Hnqstpcv1Oobob Note: [facility] Medications Alcohol Pads See Instructions, # 1 [...] 04/17/20 11:32:00 EDT, Route to Pharmacy Electronically, [facility] #48188, 158, cm, 04/13/20 14:45:00 EDT, Height, 83.6, [...] TAKE 1 TABLET BY MOUTH TWICE DAILY, [facility] #68644 Start Date: 07/31/19 Status: OrderedFreestyle Lite Lancets [...] 03/28/19 13:00:13 EDT, Route to Pharmacy Electronically, [id number], [facility] [address] Start Date: 03/28/19 Stop Date: 09/24/19 Status: OrderedOrtho Micronor 0.35 mg oral tablet 1 tablet = 0.35 mg, By Mouth, Daily, # 84 tablet, 2 Refills, Maintenance, 04/06/20 9:47:00 EDT, Tablet, [facility] #97326, 158, cm, 04/06/20 8:25:00 EDT, Height, 83.6, kg, 04/03/20 7:47:00 EDT, Dry Weight Start Date: 04/06/20 Status: OrderedPreNatal 19 (Nationwide) oral tablet, chewable 1 tablet, Daily, 0 Refills, Maintenance, 04/03/20 8:09:00 EDT Start Date: 04/03/20 Status: OrderedQUEtiapine 400 mg oral tablet See Instructions, # 30 tablet, Refills 5 Tot. Refills 5, TAKE 1 TABLET BY MOUTH DAILY AT BEDTIME, [facility] #72130 Start Date: 08/09/19 Status: OrderedReadi-Cat 2 oral suspension See Instructions, PATIENT HAS INSTRUCTIONS, # 2 each, 0 Refills, Maintenance, 04/22/20 14:54:00 EDT,[facility] #06632, PATIENT HAS INSTRUCTIONS, 158, cm, 04/22/20 13:06:00 [...] and they tend to make her heart race.0fhejalvmnokcl7Nszd in years, clonazepam 1mg bid. Has seen neuro in past. Social History Social History Type Response Tobacco Use: 4 or less cigarettes(le ss than 1/4 pack)/day in last 30 days. Other: 1ppd prior to p regnancy and now down to 1pack/week.. Sex
--- OUTSIDE RECORDS SUMMARY | 2022-08-09 21:00 | XMS_ITS | Continuity of Care Document ---
:1980 Author Organization [facility] ic Address [address] [place] [address]- Care Team Providers Name Role Phone Brenda SRIVASTAVA, Michael Primary Care Physician Encounter [facility] [place] Date(s): 03/09/20 - 05/06/[address] [address]- [facility] Attending Physician: Not on Staff, Attending MD Allergies, Adverse Reactions, Alerts Substance Reaction Severity Status NKA Active Immunizations Given and Recorded Vaccine Date Status Refusal Reason tetanus/diphtheria/pertussis, acel(Tdap) 01/09/20 Given tetanus/diphtheria/pertussis, acel(Tdap)1 06/29/18 Given influenza virus vaccine, inactivated2 11/07/19 Given influenza virus vaccine, inactivated3 08/28/17 Given influenza virus vaccine, inactivated4 10/02/15 Given Afluria (oldterm)5 07/13/16 Given Tet/Diphth/Acel, Pertussis (oldterm) 03/06/08 Given 1Result Comment: [06/29/2018] VIS sheet given, pt tolerated [id number] Comment: Patient tolerated well NS.3Admin Note: [place] Rpqr6Odikk Note: Bxfejlkp3Dxrqh Note: [facility] Medications Alcohol Pads See Instructions, # 1 [...] 04/17/20 11:32:00 EDT, Route to Pharmacy Electronically, [facility] #[id number], 158, cm, 04/13/20 14:45:00 EDT, Height, 83.6, [...] TAKE 1 TABLET BY MOUTH TWICE DAILY, [facility] #21312 Start Date: 07/31/19 Status: OrderedFreestyle Lite Lancets [...] 03/28/19 13:00:13 EDT, Route to Pharmacy Electronically, [id number], [facility] Start Date: 03/28/19 Stop Date: 09/24/19 Status: OrderedOrtho Micronor 0.35 mg oral tablet 1 tablet = 0.35 mg, By Mouth, Daily, # 84 tablet, 2 Refills, Maintenance, 04/06/20 9:47:00 EDT, Tablet, [facility] #46865, 158, cm, 04/06/20 8:25:00 EDT, Height, 83.6, kg, 04/03/20 7:47:00 EDT, Dry Weight Start Date: 04/06/20 Status: OrderedPreNatal 19 (Nationwide) oral tablet, chewable 1 tablet, Daily, 0 Refills, Maintenance, 04/03/20 8:09:00 EDT Start Date: 04/03/20 Status: OrderedQUEtiapine 400 mg oral tablet See Instructions, # 30 tablet, Refills 5 Tot. Refills 5, TAKE 1 TABLET BY MOUTH DAILY AT BEDTIME, [facility] #03327 Start Date: 08/09/19 Status: OrderedReadi-Cat 2 oral suspension See Instructions, PATIENT HAS INSTRUCTIONS, # 2 each, 0 Refills, Maintenance, 04/22/20 14:54:00 EDT,[facility] #[id number], PATIENT HAS INSTRUCTIONS, 158, cm, 04/22/20 13:06:00 [...] and they tend to make her heart race.4bqeiojpueqprk4Hucy in years, clonazepam 1mg bid. Has seen neuro in past. Social History Social History Type Response Tobacco Use: 4 or less cigarettes(le ss than 1/4 pack)/day in last 30 days. Other: 1ppd prior to p regnancy and now down to 1pack/week.. Sex
--- OUTSIDE RECORDS SUMMARY | 2022-08-09 21:00 | XMS_ITS | Continuity of Care Document ---
:1980 Author Organization [facility] [employer] [facility] p Address [address] [place] [address], [address] [place] [address]- Care Team Providers Name Role Phone Brenda SRIVASTAVA, Michael Primary Care Physician Encounter [facility] [place] Date(s): 09/24/19 - 11/27/19 [facility] [address] [place] [address], [address] [place] [address]- Attending Physician: Not on Staff, Attending MD Referring Physician: Heaven Lee CNM Allergies, Adverse Reactions, Alerts Substance Reaction Severity Status NKA Active Immunizations Given and Recorded Vaccine Date Status Refusal Reason influenza virus vaccine, inactivated1 11/07/19 Given influenza virus vaccine, inactivated2 08/28/17 Given influenza virus vaccine, inactivated3 10/02/15 Given tetanus/diphtheria/pertussis, acel(Tdap)4 06/29/18 Given Afluria (oldterm)5 07/13/16 Given Tet/Diphth/Acel, Pertussis (oldterm) 03/06/08 Given 1Result Comment: Patient tolerated well NS.2Admin Note: [place] Chbd4Mxvnh Note: Bxolgcqe4Qoegce Comment: [06/29/2018] VIS sheet given, pt tolerated [id number] Note: [facility] Medications baclofen 10 mg oral tablet 1, tablet, By Mouth, 2 times a day, PRN, # 60 tablet, Refills 0, Tot. Refills 0, Maintenance, NEEDED FOR MUSCLE SPASMS, 11/14/19 10:40:00 EST, Route to Pharmacy Electronically, [facility] #[id number], 157.4, cm, 11/07/19 15:22:00 EST, Height,... Start [...] TAKE 1 TABLET BY MOUTH TWICE DAILY, [facility] #84888 Start Date: 07/31/19 Status: OrderedNeurontin 300 mg oral capsule 900 mg, 3, capsule, By Mouth, 3 times a day, # 270 capsule, Refills 5, Tot. Refills 5, Maintenance, 03/28/19 13:00:13 EDT, Route to Pharmacy Electronically, [id number], [facility] [address] Start Date: 03/28/19 Stop Date: 09/24/19 Status: OrderedQUEtiapine 400 mg oral tablet See Instructions, # 30 tablet, Refills 5 Tot. Refills 5, TAKE 1 TABLET BY MOUTH DAILY AT BEDTIME, [facility] #41368 Start Date: 08/09/19 Status: OrderedSuboxone 8 mg-2 [...] and they tend to make her heart race.2stljweourdvah2Lhzl in years, clonazepam 1mg bid. Has seen neuro in past. Social History Social History Type Response Tobacco Use: 4 or less cigarettes(le ss than 1/4 pack)/day in last 30 days. Other: 1ppd prior to p regnancy and now down to 1pack/week.. Sex
--- OUTSIDE RECORDS SUMMARY | 2022-08-09 21:00 | XMS_ITS | Continuity of Care Document ---
:1980 Author Organization [facility] Adult Address [address] [place] [address]- Care Team Providers Name Role Phone Brenda SRIVASTAVA, Michael Primary Care Physician [place] [facility] [place] 05/07[place]20 - 06/06/20 [facility] [address] [place] [address]- [facility] Allergies, Adverse Reactions, Alerts Substance Reaction Severity Status NKA Active Immunizations Given and Recorded Vaccine Date Status Refusal Reason tetanus/diphtheria/pertussis, acel(Tdap) 01/09/20 Given tetanus/diphtheria/pertussis, acel(Tdap)1 06/29/18 Given influenza virus vaccine, inactivated2 11/07/19 Given influenza virus vaccine, inactivated3 08/28/17 Given influenza virus vaccine, inactivated4 10/02/15 Given Afluria (oldterm)5 07/13/16 Given Tet/Diphth/Acel, Pertussis (oldterm) 03/06/08 Given 1Result Comment: [06/29/2018] VIS sheet given, pt tolerated [id number] Comment: Patient tolerated well NS.3Admin Note: [place] Xyoq4Joeog Note: Mjgeoinn5Eybvj Note: [facility] Medications Alcohol Pads See Instructions, # [...] 04/17/20 11:32:00 EDT, Route to Pharmacy Electronically, [facility] #41174, 158, cm, 04/13/20 14:45:00 EDT, Height, 83.6, [...] TAKE 1 TABLET BY MOUTH TWICE DAILY, [facility] #71962 Start Date: 07/31/19 Status: OrderedFreestyle Lite Lancets [...] 03/28/19 13:00:13 EDT, Route to Pharmacy Electronically, [id number], [facility] 10451 Start Date: 03/28/19 Stop Date: 09/24/19 Status: OrderedOrtho Micronor 0.35 mg oral tablet 1 tablet = 0.35 mg, By Mouth, Daily, # 84 tablet, 2 Refills, Maintenance, 04/06/20 9:47:00 EDT, Tablet, [facility] #05412, 158, cm, 04/06/20 8:25:00 EDT, Height, 83.6, kg, 04/03/20 7:47:00 EDT, Dry Weight Start Date: 04/06/20 Status: OrderedPreNatal 19 (Nationwide) oral tablet, chewable 1 tablet, Daily, 0 Refills, Maintenance, 04/03/20 8:09:00 EDT Start Date: 04/03/20 Status: OrderedQUEtiapine 400 mg oral tablet See Instructions, # 30 tablet, Refills 5 Tot. Refills 5, TAKE 1 TABLET BY MOUTH DAILY AT BEDTIME, [facility] #53667 Start Date: 08/09/19 Status: OrderedReadi-Cat 2 oral suspension See Instructions, PATIENT HAS INSTRUCTIONS, # 2 each, 0 Refills, Maintenance, 04/22/20 14:54:00 EDT,[facility] #44050, PATIENT HAS INSTRUCTIONS, 158, cm, 04/22/20 13:06:00 [...] and they tend to make her heart race.4okcgkmkewdsgf5Ovxp in years, clonazepam 1mg bid. Has seen neuro in past. Social History Social History Type Response Tobacco Use: 4 or less cigarettes(le ss than 1/4 pack)/day in last 30 days. Other: 1ppd prior to p regnancy and now down to 1pack/week.. Sex
--- OUTSIDE RECORDS SUMMARY | 2022-08-09 21:01 | XMS_ITS | Continuity of Care Document ---
:1980 Author Organization [facility] Address [address] [place] [address]- Care Team Providers Name Role Phone Brenda SRIVASTAVA, Michael Primary Care Physician Encounter [facility] Date(s): 03/30/20 - 04/30/[address] [address]- [facility] Attending Physician: Danyell Grant MD Referring Physician: Orquidea Altamirano MD Allergies, Adverse Reactions, [...] Comment: [06/29/2018] VIS sheet given, pt tolerated [id number] Comment: Patient tolerated well NS.3Admin Note: [place] Kmpa4Zkthh Note: Elnxippu0Yywbm Note: [facility] Medications Alcohol Pads See Instructions, # [...] 04/17/20 11:32:00 EDT, Route to Pharmacy Electronically, [facility] #[id number], 158, cm, 04/13/20 14:45:00 EDT, Height, 83.6, [...] TAKE 1 TABLET BY MOUTH TWICE DAILY, [facility] #[id number] Start Date: 07/31/19 Status: OrderedFreestyle Lite Lancets [...] 03/28/19 13:00:13 EDT, Route to Pharmacy Electronically, [id number], [facility] Start Date: 03/28/19 Stop Date: 09/24/19 Status: OrderedOrtho Micronor 0.35 mg oral tablet 1 tablet = 0.35 mg, By Mouth, Daily, # 84 tablet, 2 Refills, Maintenance, 04/06/20 9:47:00 EDT, Tablet, [facility] #20427, 158, cm, 04/06/20 8:25:00 EDT, Height, 83.6, kg, 04/03/20 7:47:00 EDT, Dry Weight Start Date: 04/06/20 Status: OrderedPreNatal 19 (Nationwide) oral tablet, chewable 1 tablet, Daily, 0 Refills, Maintenance, 04/03/20 8:09:00 EDT Start Date: 04/03/20 Status: OrderedQUEtiapine 400 mg oral tablet See Instructions, # 30 tablet, Refills 5 Tot. Refills 5, TAKE 1 TABLET BY MOUTH DAILY AT BEDTIME, [facility] #17595 Start Date: 08/09/19 Status: OrderedReadi-Cat 2 oral suspension See Instructions, PATIENT HAS INSTRUCTIONS, # 2 each, 0 Refills, Maintenance, 04/22/20 14:54:00 EDT,[facility] #02716, PATIENT HAS INSTRUCTIONS, 158, cm, 04/22/20 13:06:00 [...] and they tend to make her heart race.3nuevadpewqacx2Uzng in years, clonazepam 1mg bid. Has seen neuro in past. Social History Social History Type Response Tobacco Use: 4 or less cigarettes(le ss than 1/4 pack)/day in last 30 days. Other: 1ppd prior to p regnancy and now down to 1pack/week.. Sex
--- OUTSIDE RECORDS SUMMARY | 2022-08-09 21:01 | XMS_ITS | Continuity of Care Document ---
:1980 Author Organization [facility] Address [address] [place] [address]- Care Team Providers Name Role Phone Brenda SRIVASTAVA, Michael Primary Care Physician [place] [facility] [place]/07[place]19 - 11/14/[address] [address]- [facility] Attending Physician: Suzanne Portillo MD Allergies, Adverse Reactions, Alerts Substance Reaction Severity Status NKA Active Immunizations Given and Recorded Vaccine Date Status Refusal Reason influenza virus vaccine, inactivated1 11/07/19 Given influenza virus vaccine, inactivated2 08/28/17 Given influenza virus vaccine, inactivated3 10/02/15 Given tetanus/diphtheria/pertussis, acel(Tdap)4 06/29/18 Given Afluria (oldterm)5 07/13/16 Given Tet/Diphth/Acel, Pertussis (oldterm) 03/06/08 Given 1Result Comment: Patient tolerated well NS.2Admin Note: [place] Tmvk6Wogij Note: Dmlancax3Gnjubq Comment: [06/29/2018] VIS sheet given, pt tolerated [id number] [facility]: [facility] Medications baclofen 10 mg oral tablet 1, tablet, By Mouth, 2 times a day, PRN, # 60 tablet, Refills 0, Tot. Refills 0, Maintenance, NEEDED FOR MUSCLE SPASMS, 11/14/19 10:40:00 EST, Route to Pharmacy Electronically, [facility] #[id number], 157.4, cm, 11/07/19 15:22:00 EST, Height,... Start [...] TAKE 1 TABLET BY MOUTH TWICE DAILY, [facility] #03257 Start Date: 07/31/19 Status: OrderedNeurontin 300 mg oral capsule 900 mg, 3, capsule, By Mouth, 3 times a day, # 270 capsule, Refills 5, Tot. Refills 5, Maintenance, 03/28/19 13:00:13 EDT, Route to Pharmacy Electronically, [id number], [facility] 34149 Start Date: 03/28/19 Stop Date: 09/24/19 Status: OrderedQUEtiapine 400 mg oral tablet See Instructions, # 30 tablet, Refills 5 Tot. Refills 5, TAKE 1 TABLET BY MOUTH DAILY AT BEDTIME, [facility] #95041 Start Date: 08/09/19 Status: OrderedSuboxone 8 mg-2 [...] and they tend to make her heart race.3hmczxuhwfribo3Iafr in years, clonazepam 1mg bid. Has seen neuro in past. Results Orders for Microbiology Reports Name Date Urine Culture 11/07/19 Microbiology Reports TEST:Urine Culture STATUS:Auth (Verified) BODY SITE: SOURCE:URINE COLLECTED DATE/TIME:11/07/19 3:30 PMUrine Culture SPECIMEN DESCRIPTION : URINE CLEAN CATCH/MIDSTREAM SPECIAL REQUESTS : NONE CULTURE : NO GROWTH REPORT STATUS : FINAL 11/08/2019 Social History Social History Type Response Tobacco Use: 4 or less cigarettes(le ss than 1/4 pack)/day in last 30 days. Other: 1ppd prior to p regnancy and now down to 1pack/week.. Sex
--- OUTSIDE RECORDS SUMMARY | 2022-08-09 21:01 | XMS_ITS | Continuity of Care Document ---
:1980 Author Organization [facility] Adult Address [address] [place] [address]- Care Team Providers Name Role Phone Brenda SRIVASTAVA, Michael Primary Care Physician Encounter [facility] Date(s): 07/07/22 - 08/06/22 [facility] [address] [place] [address]- Allergies, Adverse Reactions, Alerts No Known Allergies [...] Comment: [06/29/2018] VIS sheet given, pt tolerated ahif2Dimwqh Comment: Patient tolerated well NS.3Admin Note: [place] Qcau5Baroq Note: Ixxqjzgd8Ewfhr Note: [facility] Medications baclofen 10 mg oral tablet 1, tablet, By Mouth, Daily, PRN, # 30 tablet, Refills 0, Tot. Refills 0, NEEDED FOR MUSCLE SPASMS, 06/14/22 11:41:00 EDT, Route to Pharmacy Electronically, [facility] #[id number], 158, cm, 06/14/22 8:47:00 EDT, Height Start Date: 06/14/22 Status: OrderedCamila 0.35 mg oral tablet 1 tablet = 0.35 mg, By Mouth, Daily, # 28 tablet, 6 Refills, Maintenance, 05/12/22 11:26:00 EDT, Tablet, [facility] #21069, Partial fill upon patient request if the [...] TAKE 1 TABLET BY MOUTH TWICE DAILY, [facility] #00677 Start Date: 07/31/19 Status: Orderedfluticasone 50 mcg/inh nasal spray See Instructions, SHAKE LIQUID AND USE 1 SPRAY IN EACH NOSTRIL TWICE DAILY, # 16 Gm, 5 Refills, Maintenance, 04/25/21 9:43:00 EDT, [facility] #99373, 30, SHAKE LIQUID AND USE 1 SPRAY [...] 03/28/19 13:00:13 EDT, Route to Pharmacy Electronically, [id number], [facility] [address] Start Date: 03/28/19 Stop Date: 09/24/19 Status: OrderedQUEtiapine 400 mg oral tablet See Instructions, # 30 tablet, Refills 5 Tot. Refills 5, TAKE 1 TABLET BY MOUTH DAILY AT BEDTIME, [facility] #63446 Start Date: 08/09/19 Status: Ordered Problem List Condition Confirmation Course Effective Status Health Informa nt Dates Status Anxiety disorder Confirmed Active Depression1 Confirmed Active Hepatitis C Confirmed Active History of substance Confirmed Active abuse Hypercholesterolemia Confirmed 11/24/10 Active Migraine2 Confirmed Active Obese class II Confirmed Active Opioid dependence on Confirmed Active maintenance agonist therapy, no symptoms3 PTSD (post-traumatic Confirmed Active stress disorder) Major depression, Confirmed Active recurrent Hx of Seizures4 Confirmed Active Spasm of muscle Confirmed Active 1Has therapist, tries to see q2wks, but her availability makes it hard to see her like patient would to see her.2Hx of frequent migraines. Managed by pcp mainly, but reports has tried many meds and none seem to work and they tend to make her heart race.3pussszygwpkgr5Ihbs in years, clonazepam 1mg bid. Has seen neuro in past. Social History Social History Type Response Tobacco Use: 4 or less cigarettes(le ss than 1/4 pack)/day in last 30 days. Other: 3 cigs/day, 26 year smoking history.. Sex Patient Care team information PersonnelName: Brenda SRIVASTAVA, Michael Address: Address: [address] [place], [place] [address]
--- OUTSIDE RECORDS SUMMARY | 2022-08-09 21:01 | XMS_ITS | Continuity of Care Document ---
:1980 Author Organization [facility] Adult Address [address] [place] [address]- Care Team Providers Name Role Phone Michael Gutierrez MD Primary Care Physician Encounter [facility] [place] Date(s): 04/13/20 - 04/20/20 [facility] [address] [place] [address] Encounter Diagnosis Umbilical hernia (Discharge Diagnosis) - 04/13/20 Attending Physician: Michael Gutierrez MD Allergies, Adverse [...] Comment: [06/29/2018] VIS sheet given, pt tolerated [id number] Comment: Patient tolerated well NS.3Admin Note: [place] Ojwc1Ikqsn Note: Mgacjhea8Pzkjc Note: [facility] Medications Alcohol Pads See Instructions, # 1 [...] 04/17/20 11:32:00 EDT, Route to Pharmacy Electronically, [facility] #[id number], 158, cm, 04/13/20 14:45:00 EDT, Height, 83.6, [...] TAKE 1 TABLET BY MOUTH TWICE DAILY, [facility] #53236 Start Date: 07/31/19 Status: OrderedFreestyle Lite Lancets [...] 03/28/19 13:00:13 EDT, Route to Pharmacy Electronically, [id number], [facility] [address] Start Date: 03/28/19 Stop Date: 09/24/19 Status: OrderedOrtho Micronor 0.35 mg oral tablet 1 tablet = 0.35 mg, By Mouth, Daily, # 84 tablet, 2 Refills, Maintenance, 04/06/20 9:47:00 EDT, Tablet, [facility] #69104, 158, cm, 04/06/20 8:25:00 EDT, Height, 83.6, kg, 04/03/20 7:47:00 EDT, Dry Weight Start Date: 04/06/20 Status: OrderedPreNatal 19 (Nationwide) oral tablet, chewable 1 tablet, Daily, 0 Refills, Maintenance, 04/03/20 8:09:00 EDT Start Date: 04/03/20 Status: OrderedQUEtiapine 400 mg oral tablet See Instructions, # 30 tablet, Refills 5 Tot. Refills 5, TAKE 1 TABLET BY MOUTH DAILY AT BEDTIME, [facility] #83353 Start Date: 08/09/19 Status: OrderedSuboxone 8 mg-2 [...] and they tend to make her heart race.8pzwqhbzzqryos5Ejfu in years, clonazepam 1mg bid. Has seen neuro in past. Diagnosis Diagnosis Type Effective Dates Health Status Clinical In formant Service Umbilical hernia Discharge 04/13/20 Diagnosis Vital Signs Most recent to oldest [Reference Range]: 1 Height 158 cm (04/13/20 2:45 PM) Social History Social History Type Response Tobacco Use: 4 or less cigarettes(le ss than 1/4 pack)/day in last 30 days. Other: 1ppd prior to p regnancy and now down to 1pack/week.. Sex
--- OUTSIDE RECORDS SUMMARY | 2022-08-09 21:01 | XMS_ITS | Continuity of Care Document ---
:1980 Author Organization [facility] ic Address [address] [place] [address]- Care Team Providers Name Role Phone Michael Gutierrez MD Primary Care Physician [place] [facility] [place] Date(s): 05/19/22 - 07/29/[address] [address] Attending Physician: Roberta Diehl CNM Admitting Physician: Roberta Diehl CNM Allergies, Adverse Reactions, Alerts No Known Allergies [...] Comment: [06/29/2018] VIS sheet given, pt tolerated [id number] Comment: Patient tolerated well NS.3Admin Note: [place] Xzrd7Fgxhp Note: Rolmsfzt0Fvfvt Note: [facility] Medications baclofen 10 mg oral tablet 1, tablet, By Mouth, Daily, PRN, # 30 tablet, Refills 0, Tot. Refills 0, NEEDED FOR MUSCLE SPASMS, 06/14/22 11:41:00 EDT, Route to Pharmacy Electronically, [facility] #55293, 158, cm, 06/14/22 8:47:00 EDT, Height Start Date: 06/14/22 Status: OrderedCamila 0.35 mg oral tablet 1 tablet = 0.35 mg, By Mouth, Daily, # 28 tablet, 6 Refills, Maintenance, 05/12/22 11:26:00 EDT, Tablet, [facility] #49820, Partial fill upon patient request if the [...] TAKE 1 TABLET BY MOUTH TWICE DAILY, [facility] #44725 Start Date: 07/31/19 Status: Orderedfluticasone 50 mcg/inh nasal spray See Instructions, SHAKE LIQUID AND USE 1 SPRAY IN EACH NOSTRIL TWICE DAILY, # 16 Gm, 5 Refills, Maintenance, 04/25/21 9:43:00 EDT, [facility] #04239, 30, SHAKE LIQUID AND USE 1 SPRAY [...] 03/28/19 13:00:13 EDT, Route to Pharmacy Electronically, [id number], [facility] [address] Start Date: 03/28/19 Stop Date: 09/24/19 Status: OrderedQUEtiapine 400 mg oral tablet See Instructions, # 30 tablet, Refills 5 Tot. Refills 5, TAKE 1 TABLET BY MOUTH DAILY AT BEDTIME, [facility] #38854 Start Date: 08/09/19 Status: Ordered Problem List [...] and they tend to make her heart race.8paivnppsbcnid6Koyt in years, clonazepam 1mg bid. Has seen neuro in past. Social History Social History Type Response Tobacco Use: 4 or less cigarettes(le ss than 1/4 pack)/day in last 30 days. Other: 3 cigs/day, 26 year smoking history.. Sex Patient Care team information PersonnelName: Michael Gutierrez MD Address: Address: [address] [place], [place] [address]
--- OUTSIDE RECORDS SUMMARY | 2022-08-09 21:01 | XMS_ITS | Continuity of Care Document ---
:1980 [facility] p Address [address] [place] [address], [address] [place] [address]- Care Team Providers Name Role Phone Brenda SRIVASTAVA, Michael Primary Care Physician Encounter [facility] [place] Date(s): 11/07/19 - 12/27/19 [facility] [address], [address] [place] [address]- Attending Physician: Suzanne Portillo MD Allergies, Adverse Reactions, Alerts Substance Reaction Severity Status NKA Active Immunizations Given and Recorded Vaccine Date Status Refusal Reason influenza virus vaccine, inactivated1 11/07/19 Given influenza virus vaccine, inactivated2 08/28/17 Given influenza virus vaccine, inactivated3 10/02/15 Given tetanus/diphtheria/pertussis, acel(Tdap)4 06/29/18 Given Afluria (oldterm)5 07/13/16 Given Tet/Diphth/Acel, Pertussis (oldterm) 03/06/08 Given 1Result Comment: Patient tolerated well NS.2Admin Note: [place] Dvav8Driyi Note: Wfbxtqgo0Spxbpi Comment: [06/29/2018] VIS sheet given, pt tolerated otgj4Vqspx Note: [facility] Medications baclofen 10 mg oral tablet 1, tablet, By Mouth, Daily, PRN, # 30 tablet, Refills 0, Tot. Refills 0, Maintenance, NEEDED FOR MUSCLE SPASMS, 12/26/19 15:03:00 EST, Route to Pharmacy Electronically, [facility]68932, 158.5, cm, 12/26/19 14:30:00 EST, Height, 56.3, [...] TAKE 1 TABLET BY MOUTH TWICE DAILY, [facility] #[id number] Start Date: 07/31/19 Status: OrderedNeurontin 300 mg oral capsule 900 mg, 3, capsule, By Mouth, 3 times a day, # 270 capsule, Refills 5, Tot. Refills 5, Maintenance, 03/28/19 13:00:13 EDT, Route to Pharmacy Electronically, [id number], [facility] [address]45 Start Date: 03/28/19 Stop Date: 09/24/19 Status: OrderedQUEtiapine 400 mg oral tablet See Instructions, # 30 tablet, Refills 5 Tot. Refills 5, TAKE 1 TABLET BY MOUTH DAILY AT BEDTIME, [facility] #15250 Start Date: 08/09/19 Status: OrderedSuboxone 8 mg-2 [...] and they tend to make her heart race.9hgjqbyhqhdkol8Efqg in years, clonazepam 1mg bid. Has seen neuro in past. Social History Social History Type Response Tobacco Use: 4 or less cigarettes(le ss than 1/4 pack)/day in last 30 days. Other: 1ppd prior to p regnancy and now down to 1pack/week.. Sex
--- OUTSIDE RECORDS SUMMARY | 2022-08-09 21:01 | XMS_ITS | Continuity of Care Document ---
:1980 Author Organization [facility] Address [address] [place] [phone]- Care Team Providers Name Role Phone Brenda SRIVASTAVA, Michael Primary Care Physician [facility]counter [facility] Date(s): 11/[facility]/19 - 01/08/[facility] [address] [place] [address]- [facility] Attending Physician: Alejandrina Dangelo MD Admitting Physician: Alejandrina Dangelo MD Referring Physician: Suzanne Portillo MD Allergies, Adverse Reactions, Alerts Substance Reaction Severity Status NKA Active Immunizations Given and Recorded Vaccine Date Status Refusal Reason influenza virus vaccine, inactivated1 11/07/19 Given influenza virus vaccine, inactivated2 08/28/17 Given influenza virus vaccine, inactivated3 10/02/15 Given tetanus/diphtheria/pertussis, acel(Tdap)4 06/29/18 Given Afluria (oldterm)5 07/13/16 Given Tet/Diphth/Acel, Pertussis (oldterm) 03/06/08 Given 1Result Comment: Patient tolerated well NS.2Admin Note: [place] Mlrv8Yuone Note: Ijptcoye7Zseuow Comment: [06/29/2018] VIS sheet given, pt tolerated [id number] Note: [facility] Medications baclofen 10 mg oral tablet 1, tablet, By Mouth, Daily, PRN, # 30 tablet, Refills 0, Tot. Refills 0, Maintenance, NEEDED FOR MUSCLE SPASMS, 12/26/19 15:03:00 EST, Route to Pharmacy Electronically, [facility] #[id number], 158.5, cm, 12/26/19 14:30:00 EST, Height, 56.3, [...] TAKE 1 TABLET BY MOUTH TWICE DAILY, [facility] #[id number] Start Date: 07/31/19 Status: OrderedNeurontin 300 mg oral capsule 900 mg, 3, capsule, By Mouth, 3 times a day, # 270 capsule, Refills 5, Tot. Refills 5, Maintenance, 03/28/19 13:00:13 EDT, Route to Pharmacy Electronically, [id number], [facility] Start Date: 03/28/19 Stop Date: 09/24/19 Status: OrderedQUEtiapine 400 mg oral tablet See Instructions, # 30 tablet, Refills 5 Tot. Refills 5, TAKE 1 TABLET BY MOUTH DAILY AT BEDTIME, [facility] #[id number] Start Date: 08/09/19 Status: OrderedSuboxone 8 mg-2 [...] and they tend to make her heart race.5qbrgtbpifgqig7 None in years, clonazepam 1mg bid. Has seen neuro in past. Social History Social History Type Response Tobacco Use: 4 or less cigarettes(le ss than 1/4 pack)/day in last 30 days. Other: 1ppd prior to p regnancy and now down to 1pack/week.. Sex
--- OUTSIDE RECORDS SUMMARY | 2022-08-09 21:01 | XMS_ITS | Continuity of Care Document ---
:1980 Author Organization [facility] Address [address] [place] [address]- Care Team Providers Name Role Phone Brenda SRIVASTAVA, Michael Primary Care Physician [facility] Date(s): 11/27/19 - 12/07/19 [facility] [address] [place] [address]- [facility] Attending Physician: Jenn, Mustapha8 Admitting Physician: AdmtrMercedez Referring Physician: Admtr, Ar8 [...] 1Result Comment: Patient tolerated well NS.2Admin Note: [place] Tbsa3Aoeio Note: Yggnjnde2Ozznqd Comment: [06/29/2018] VIS sheet given, pt tolerated [id number] Note: [facility] Medications baclofen 10 mg oral tablet 1, tablet, By Mouth, 2 times a day, PRN, # 60 tablet, Refills 0, Tot. Refills 0, Maintenance, NEEDED FOR MUSCLE SPASMS, 11/14/19 10:40:00 EST, Route to Pharmacy Electronically, [facility] #[id number], 157.4, cm, 11/07/19 15:22:00 EST, Height,... Start [...] TAKE 1 TABLET BY MOUTH TWICE DAILY, [facility] #04785 Start Date: 07/31/19 Status: OrderedNeurontin 300 mg oral capsule 900 mg, 3, capsule, By Mouth, 3 times a day, # 270 capsule, Refills 5, Tot. Refills 5, Maintenance, 03/28/19 13:00:13 EDT, Route to Pharmacy Electronically, [id number], [facility] 09671 Start Date: 03/28/19 Stop Date: 09/24/19 Status: OrderedQUEtiapine 400 mg oral tablet See Instructions, # 30 tablet, Refills 5 Tot. Refills 5, TAKE 1 TABLET BY MOUTH DAILY AT BEDTIME, [facility] #03507 Start Date: 08/09/19 Status: OrderedSuboxone 8 mg-2 [...] and they tend to make her heart race.3ckiylgdcpudhc8Dtkc in years, clonazepam 1mg bid. Has seen neuro in past. Social History Social History Type Response Tobacco Use: 4 or less cigarettes(le ss than 1/4 pack)/day in last 30 days. Other: 1ppd prior to p regnancy and now down to 1pack/week.. Sex
--- OUTSIDE RECORDS SUMMARY | 2022-08-09 21:01 | XMS_ITS | Continuity of Care Document ---
:1980 Author Organization [facility] ic Address [address] [place] [address]- Care Team Providers Name Role Phone Michael Gutierrez MD Primary Care Physician [facility] Date(s): 05/29/20 - 06/28/[address] [address]- [facility] Allergies, Adverse Reactions, Alerts Substance Reaction Severity Status NKA Active Immunizations Given and Recorded Vaccine Date Status Refusal Reason tetanus/diphtheria/pertussis, acel(Tdap) 01/09/20 Given tetanus/diphtheria/pertussis, acel(Tdap)1 06/29/18 Given influenza virus vaccine, inactivated2 11/07/19 Given influenza virus vaccine, inactivated3 08/28/17 Given influenza virus vaccine, inactivated4 10/02/15 Given Afluria (oldterm)5 07/13/16 Given Tet/Diphth/Acel, Pertussis (oldterm) 03/06/08 Given 1Result Comment: [06/29/2018] VIS sheet given, pt tolerated [id number] Comment: Patient tolerated well NS.3Admin Note: [place] Mlfu5Cljtq Note: Xsjfubrq1Rrgkz Note: [facility] Medications Alcohol Pads See Instructions, # [...] 06/08/20 9:49:00 EDT, Route to Pharmacy Electronically, [facility] #[id number], 158, cm, 05/21/20 14:00:00 EDT, Height, 83.6, [...] TAKE 1 TABLET BY MOUTH TWICE DAILY, [facility] #40048 Start Date: 07/31/19 Status: OrderedFreestyle Lite Lancets [...] 03/28/19 13:00:13 EDT, Route to Pharmacy Electronically, [id number], [facility] 04672 Start Date: 03/28/19 Stop Date: 09/24/19 Status: OrderedOrtho Micronor 0.35 mg oral tablet 1 tablet = 0.35 mg, By Mouth, Daily, # 84 tablet, 2 Refills, Maintenance, 04/06/20 9:47:00 EDT, Tablet, [facility] #02729, 158, cm, 04/06/20 8:25:00 EDT, Height, 83.6, kg, 04/03/20 7:47:00 EDT, Dry Weight Start Date: 04/06/20 Status: OrderedPreNatal 19 (Nationwide) oral tablet, chewable 1 tablet, Daily, 0 Refills, Maintenance, 04/03/20 8:09:00 EDT Start Date: 04/03/20 Status: OrderedQUEtiapine 400 mg oral tablet See Instructions, # 30 tablet, Refills 5 Tot. Refills 5, TAKE 1 TABLET BY MOUTH DAILY AT BEDTIME, [facility] #68280 Start Date: 08/09/19 Status: OrderedReadi-Cat 2 oral suspension See Instructions, PATIENT HAS INSTRUCTIONS, # 2 each, 0 Refills, Maintenance, 04/22/20 14:54:00 EDT,[facility] #[id number], PATIENT HAS INSTRUCTIONS, 158, cm, 04/22/20 13:06:00 [...] and they tend to make her heart race.9qspjjscmkgfzy6Tczh in years, clonazepam 1mg bid. Has seen neuro in past. Social History Social History Type Response Tobacco Use: 4 or less cigarettes(le ss than 1/4 pack)/day in last 30 days. Other: 1ppd prior to p regnancy and now down to 1pack/week.. Sex
--- OUTSIDE RECORDS SUMMARY | 2022-08-09 21:01 | XMS_ITS | Continuity of Care Document ---
:1980 Author Organization [facility] Address [address] [place] [address]- Care Team Providers Name Role Phone Michael Gutierrez MD Primary Care Physician [facility] Date[facility]s): 01/15/20 - 01/25/20 [facility] [address] [place] [address]- [facility] Attending Physician: Mercedez Barajas Admitting Physician: AdmMercedez joel Referring Physician: Admtr, Ar8 Allergies, Adverse Reactions, [...] Comment: [06/29/2018] VIS sheet given, pt tolerated [id number] Comment: Patient tolerated well NS.3Admin Note: [place] Dzhk5Jttgw Note: Bcvriuxz6Omema Note: [facility] Medications baclofen 10 mg oral tablet 1, tablet, By Mouth, Daily, PRN, # 30 tablet, Refills 0, Tot. Refills 0, Maintenance, NEEDED FOR MUSCLE SPASMS, 12/26/19 15:03:00 EST, Route to Pharmacy Electronically, [facility] #69970, 158.5, cm, 12/26/19 14:30:00 EST, Height, 56.3, [...] TAKE 1 TABLET BY MOUTH TWICE DAILY, [facility] #13291 Start Date: 07/31/19 Status: OrderedNeurontin 300 mg oral capsule 900 mg, 3, capsule, By Mouth, 3 times a day, # 270 capsule, Refills 5, Tot. Refills 5, Maintenance, 03/28/19 13:00:13 EDT, Route to Pharmacy Electronically, [id number], [facility] [address]131 Start Date: 03/28/19 Stop Date: 09/24/19 Status: OrderedQUEtiapine 400 mg oral tablet See Instructions, # 30 tablet, Refills 5 Tot. Refills 5, TAKE 1 TABLET BY MOUTH DAILY AT BEDTIME, [facility] #92880 Start Date: 08/09/19 Status: OrderedSuboxone 8 mg-2 [...] and they tend to make her heart race.8qzdvkkpxoiexs9 None in years, clonazepam 1mg bid. Has seen neuro in past. Social History Social History Type Response Tobacco Use: 4 or less cigarettes(le ss than 1/4 pack)/day in last 30 days. Other: 1ppd prior to p regnancy and now down to 1pack/week.. Sex
--- OUTSIDE RECORDS SUMMARY | 2022-08-09 21:01 | XMS_ITS | Continuity of Care Document ---
:1980 Author Organization [facility] ic Address [address] [place] [address]- Care Team Providers Name Role Phone Michael Gutierrez MD Primary Care Physician Encounter [facility] Date(s): 02/28/20 - 05/09/[address] [address]- [facility] Attending Physician: Orquidea Altamirano MD Admitting Physician: Orquidea Altamirano MD Referring Physician: Orquidea Altamirano MD Allergies, [...] Comment: [06/29/2018] VIS sheet given, pt tolerated [id number] Comment: Patient tolerated well NS.3Admin Note: [place] Cobf6Xjexa Note: Tpzhqvfh5Nrnct Note: [facility] Medications Alcohol Pads See Instructions, # [...] 04/17/20 11:32:00 EDT, Route to Pharmacy Electronically, [facility] #63213, 158, cm, 04/13/20 14:45:00 EDT, Height, 83.6, [...] TAKE 1 TABLET BY MOUTH TWICE DAILY, [facility] #80907 Start Date: 07/31/19 Status: OrderedFreestyle Lite Lancets [...] 03/28/19 13:00:13 EDT, Route to Pharmacy Electronically, [id number], [facility] 77714 Start Date: 03/28/19 Stop Date: 09/24/19 Status: OrderedOrtho Micronor 0.35 mg oral tablet 1 tablet = 0.35 mg, By Mouth, Daily, # 84 tablet, 2 Refills, Maintenance, 04/06/20 9:47:00 EDT, Tablet, [facility] #54913, 158, cm, 04/06/20 8:25:00 EDT, Height, 83.6, kg, 04/03/20 7:47:00 EDT, Dry Weight Start Date: 04/06/20 Status: OrderedPreNatal 19 (Nationwide) oral tablet, chewable 1 tablet, Daily, 0 Refills, Maintenance, 04/03/20 8:09:00 EDT Start Date: 04/03/20 Status: OrderedQUEtiapine 400 mg oral tablet See Instructions, # 30 tablet, Refills 5 Tot. Refills 5, TAKE 1 TABLET BY MOUTH DAILY AT BEDTIME, [facility] #[id number] Start Date: 08/09/19 Status: OrderedReadi-Cat 2 oral suspension See Instructions, PATIENT HAS INSTRUCTIONS, # 2 each, 0 Refills, Maintenance, 04/22/20 14:54:00 EDT,[facility] #42678, PATIENT HAS INSTRUCTIONS, 158, cm, 04/22/20 13:06:00 [...] and they tend to make her heart race.8foiisuhqrkzam6Hoci in years, clonazepam 1mg bid. Has seen neuro in past. Social History Social History Type Response Tobacco Use: 4 or less cigarettes(le ss than 1/4 pack)/day in last 30 days. Other: 1ppd prior to p regnancy and now down to 1pack/week.. Sex
--- OUTSIDE RECORDS SUMMARY | 2022-08-09 21:01 | XMS_ITS | Continuity of Care Document ---
:1980 Author Organization [facility] Address [address] [place] [address]- Care Team Providers Name Role Phone Michael Gutierrez MD Primary Care Physician Encounter [facility] Date(s): 04/29/20 - 05/29/20 [facility] [address] [place] [address]- [facility] Attending Physician: Mercedez Barajas Admitting Physician: AdmMercedez [...] Comment: [06/29/2018] VIS sheet given, pt tolerated [id number] Comment: Patient tolerated well NS.3Admin Note: [place] Ebso6Yjtec Note: Usdkjtco0Sjngo Note: [facility] Medications Alcohol Pads See Instructions, # [...] 04/17/20 11:32:00 EDT, Route to Pharmacy Electronically, [facility] #80839, 158, cm, 04/13/20 14:45:00 EDT, Height, 83.6, [...] TAKE 1 TABLET BY MOUTH TWICE DAILY, [facility] #07010 Start Date: 07/31/19 Status: OrderedFreestyle Lite Lancets [...] EDT, Dry We... Start Date: 02/13/20 Status: Orderedmiconazole 2% topical cream 1 application, Topically, 2 times a day, for 7 days, # 15 Gm, 0 Refills, Acute 06/05/20 16:34:00 EDT, 05/29/20 16:34:00 EDT, Cream, [facility] #39183, 1 application Topically 2 times a day,x7days, 158, cm, 05/21/20 14:00:00 EDT, Height, 83.... Start Date: 05/29/20 Stop Date: 06/05/20 Status: OrderedNeurontin 300 mg oral capsule 900 mg, 3, capsule, By Mouth, 3 times a day, # 270 capsule, Refills 5, Tot. Refills 5, Maintenance, 03/28/19 13:00:13 EDT, Route to Pharmacy Electronically, [id number], [facility] [address] Start Date: 03/28/19 Stop Date: 09/24/19 Status: OrderedOrtho Micronor 0.35 mg oral tablet 1 tablet = 0.35 mg, By Mouth, Daily, # 84 tablet, 2 Refills, Maintenance, 04/06/20 9:47:00 EDT, Tablet, [facility] #34671, 158, cm, 04/06/20 8:25:00 EDT, Height, 83.6, kg, 04/03/20 7:47:00 EDT, Dry Weight Start Date: 04/06/20 Status: OrderedPreNatal 19 (Nationwide) oral tablet, chewable 1 tablet, Daily, 0 Refills, Maintenance, 04/03/20 8:09:00 EDT Start Date: 04/03/20 Status: OrderedQUEtiapine 400 mg oral tablet See Instructions, # 30 tablet, Refills 5 Tot. Refills 5, TAKE 1 TABLET BY MOUTH DAILY AT BEDTIME, [facility] #09376 Start Date: 08/09/19 Status: OrderedReadi-Cat 2 oral suspension See Instructions, PATIENT HAS INSTRUCTIONS, # 2 each, 0 Refills, Maintenance, 04/22/20 14:54:00 EDT,[facility] #87218, PATIENT HAS INSTRUCTIONS, 158, cm, 04/22/20 13:06:00 [...] and they tend to make her heart race.1vdoolhbhwvdin8Gtiz in years, clonazepam 1mg bid. Has seen neuro in past. Social History Social History Type Response Tobacco Use: 4 or less cigarettes(le ss than 1/4 pack)/day in last 30 days. Other: 1ppd prior to p regnancy and now down to 1pack/week.. Sex
--- OUTSIDE RECORDS SUMMARY | 2022-08-09 21:01 | XMS_ITS | Continuity of Care Document ---
:1980 Author Organization [facility] Address [address] [place] [address]- Care Team Providers Name Role Phone Michael Gutierrez MD Primary Care Physician [facility] Date(s): 04/03/20 - 04/06/[address] [address]- [facility] Discharge Disposition: A-D/C Home Attending Physician: Danyell Grant MD Admitting Physician: Danyell Grant MD Referring Physician: Danyell Grant MD Allergies, Adverse Reactions, Alerts Substance Reaction Severity Status NKA Active Immunizations Given and Recorded Vaccine Date Status Refusal Reason tetanus/diphtheria/pertussis, acel(Tdap) 01/09/20 Given tetanus/diphtheria/pertussis, acel(Tdap)1 06/29/18 Given influenza virus vaccine, inactivated2 11/07/19 Given influenza virus vaccine, inactivated3 08/28/17 Given influenza virus vaccine, inactivated4 10/02/15 Given Afluria (oldterm)5 07/13/16 Given Tet/Diphth/Acel, Pertussis (oldterm) 03/06/08 Given 1Result Comment: [06/29/2018] VIS sheet given, pt tolerated [id number] Comment: Patient tolerated well NS.3Admin Note: [place] Hqqy0Sxzia Note: Fsfbkydb3Btibt Note: [facility] Medications Alcohol Pads See Instructions, # [...] 03/19/20 10:46:00 EDT, Route to Pharmacy Electronically, [facility] #[id number], 158.5, cm, 02/13/20 13:28:00 EDT, Height, 56.3, [...] TAKE 1 TABLET BY MOUTH TWICE DAILY, [facility] #47580 Start Date: 07/31/19 Status: OrderedFreestyle Lite Lancets [...] 03/28/19 13:00:13 EDT, Route to Pharmacy Electronically, [id number], [facility] [address]843 Start Date: 03/28/19 Stop Date: 09/24/19 Status: OrderedOrtho Micronor 0.35 mg oral tablet 1 tablet = 0.35 mg, By Mouth, Daily, # 84 tablet, 2 Refills, Maintenance, 04/06/20 9:47:00 EDT, Tablet, [facility] #21282, 158, cm, 04/06/20 8:25:00 EDT, Height, 83.6, kg, 04/03/20 7:47:00 EDT, Dry Weight Start Date: 04/06/20 Status: OrderedPreNatal 19 (Nationwide) oral tablet, chewable 1 tablet, Daily, 0 Refills, Maintenance, 04/03/20 8:09:00 EDT Start Date: 04/03/20 Status: OrderedQUEtiapine 400 mg oral tablet See Instructions, # 30 tablet, Refills 5 Tot. Refills 5, TAKE 1 TABLET BY MOUTH DAILY AT BEDTIME, [facility] #93768 Start Date: 08/09/19 Status: OrderedSuboxone 8 mg-2 [...] and they tend to make her heart race.7abdmrgyjvyldl4Meiu in years, clonazepam 1mg bid. Has seen neuro in past. Vital Signs Most recent to oldest [Reference 1 2 3 Range]: Height 158 cm 158 cm 158 cm (04/06/20 8:00 AM) (04/06/20 12:00 AM) (04/05/20 4:11 PM) Weight 83.6 kg (04/03/20 7:47 AM) Oxygen Saturation [94-100 %] 99 % 96 % 97 % (04/06/20 8:00 AM) (04/06/20 12:00 AM) (04/05/20 4:11 PM) Pulse Rate [55-90 bpm] 68 bpm 67 bpm 66 bpm (04/06/20 8:00 AM) (04/06/20 12:00 AM) (04/05/20 4:11 PM) Body Mass Index [18.5-24.99] 33.49 *>HHI* (04/03/20 7:47 AM) Blood Pressure [90-138/55-84 mm 133/67 mm Hg 99/56 mm Hg 116/70 mm Hg Hg] (04/06/20 8:00 AM) (04/06/20 12:00 AM) (04/05/20 9:17 PM) Respiratory Rate [16-30 br/min] 18 br/min 18 br/min 18 br/min (04/06/20 1:30 PM) (04/06/20 1:30 PM) (04/06/20 10:16 AM) Temperature [96.8-100.4 DegF] 97.6 DegF 97.5 DegF 98 .1 DegF (04/06/20 8:00 AM) (04/06/20 12:00 AM) (04/05/20 4:11 PM) Mode of Delivery (Oxygen) Room air Room air Room a ir (04/06/20 8:00 AM) (04/06/20 12:00 AM) (04/04/20 11:30 PM) Blood pressure sites Arm, right Arm, right Arm, right (04/06/20 8:00 AM) (04/06/20 12:00 AM) (04/04/20 11:30 PM) Temperature Route Oral Oral Oral (04/06/20 8:00 AM) (04/06/20 12:00 AM) (04/05/20 4:11 PM) Dry Weight 83.6 kg (04/03/20 7:47 AM) Social History Social History Type Response Tobacco Use: 4 or less cigarettes(le ss than 1/4 pack)/day in last 30 days. Other: 1ppd prior to p regnancy and now down to 1pack/week.. Sex Female
--- OUTSIDE RECORDS SUMMARY | 2022-08-09 21:01 | XMS_ITS | Continuity of Care Document ---
:1980 Author Organization [facility] ic Address [address] [place] [address]- Care Team Providers Name Role Phone Michael Gutierrez MD Primary Care Physician Encounter [facility] Date(s): 04/06/20 - 05/23/[address] [address]- [facility] Attending Physician: Not on Staff, Attending MD Referring Physician: Michael Gutierrez MD Allergies, [...] Comment: [06/29/2018] VIS sheet given, pt tolerated [id number] Comment: Patient tolerated well NS.3Admin Note: [place] Tycl2Okknt Note: Czhkusbr4Psnmq Note: [facility] Medications Alcohol Pads See Instructions, # 1 [...] 04/17/20 11:32:00 EDT, Route to Pharmacy Electronically, [facility] #71303, 158, cm, 04/13/20 14:45:00 EDT, Height, 83.6, [...] TAKE 1 TABLET BY MOUTH TWICE DAILY, [facility] #70477 Start Date: 07/31/19 Status: OrderedFreestyle Lite Lancets [...] 05/26/20 15:15:00 EDT, 05/21/20 15:15:00 EDT, Gel, [facility] #00772, 1 applicator Vaginally Daily at bedtime,x5 days, 158, cm, 05/21/20 14:00:00 EDT, Height, 8... Start Date: 05/21/20 Stop Date: 05/26/20 Status: OrderedNeurontin 300 mg oral capsule 900 mg, 3, capsule, By Mouth, 3 times a day, # 270 capsule, Refills 5, Tot. Refills 5, Maintenance, 03/28/19 13:00:13 EDT, Route to Pharmacy Electronically, [id number], [facility] [address]97 Start Date: 03/28/19 Stop Date: 09/24/19 Status: OrderedOrtho Micronor 0.35 mg oral tablet 1 tablet = 0.35 mg, By Mouth, Daily, # 84 tablet, 2 Refills, Maintenance, 04/06/20 9:47:00 EDT, Tablet, [facility] #97892, 158, cm, 04/06/20 8:25:00 EDT, Height, 83.6, kg, 04/03/20 7:47:00 EDT, Dry Weight Start Date: 04/06/20 Status: OrderedPreNatal 19 (Nationwide) oral tablet, chewable 1 tablet, Daily, 0 Refills, Maintenance, 04/03/20 8:09:00 EDT Start Date: 04/03/20 Status: OrderedQUEtiapine 400 mg oral tablet See Instructions, # 30 tablet, Refills 5 Tot. Refills 5, TAKE 1 TABLET BY MOUTH DAILY AT BEDTIME, [email or web address] #23567 Start Date: 08/09/19 Status: OrderedReadi-Cat 2 oral suspension See Instructions, PATIENT HAS INSTRUCTIONS, # 2 each, 0 Refills, Maintenance, 04/22/20 14:54:00 EDT,[email or web address] #74699, PATIENT HAS INSTRUCTIONS, 158, cm, 04/22/20 13:06:00 [...] and they tend to make her heart race.3qcllyupjqmvia2Gspb in years, clonazepam 1mg bid. Has seen neuro in past. Social History Social History Type Response Tobacco Use: 4 or less cigarettes(le ss than 1/4 pack)/day in last 30 days. Other: 1ppd prior to p regnancy and now down to 1pack/week.. Sex
--- OUTSIDE RECORDS SUMMARY | 2022-08-09 21:01 | XMS_ITS | Continuity of Care Document ---
:1980 Author Organization [facility] Address [address] [place] [address]- Care Team Providers Name Role Phone Brenda SRIVASTAVA, Michael Primary Care Physician [facility] Date(s): 12/26/19 - 02/23/20 [facility] [address] [place] [address]- [facility] Attending Physician: Mcihael Gutierrez MD Allergies, Adverse Reactions, Alerts Substance [...] Comment: [06/29/2018] VIS sheet given, pt tolerated [id number] Comment: Patient tolerated well NS.3Admin Note: [place] Yekt3Cygsc Note: Bdljqmdh9Ffeqv Note: [facility] Medications Alcohol Pads See Instructions, [...] 12/26/19 15:03:00 EST, Route to Pharmacy Electronically, [facility] #61420, 158.5, cm, 12/26/19 14:30:00 EST, Height, 56.3, [...] TAKE 1 TABLET BY MOUTH TWICE DAILY, [facility] #65603 Start Date: 07/31/19 Status: OrderedFreestyle Lite Lancets [...] 03/28/19 13:00:13 EDT, Route to Pharmacy Electronically, [id number], [facility] [address]44 Start Date: 03/28/19 Stop Date: 09/24/19 Status: OrderedQUEtiapine 400 mg oral tablet See Instructions, # 30 tablet, Refills 5 Tot. Refills 5, TAKE 1 TABLET BY MOUTH DAILY AT BEDTIME, [facility] #13353 Start Date: 08/09/19 Status: OrderedSuboxone 8 mg-2 [...] and they tend to make her heart race.3ngabyaqfwwnfq4 None in years, clonazepam 1mg bid. Has seen neuro in past. Social History Social History Type Response Tobacco Use: 4 or less cigarettes(le ss than 1/4 pack)/day in last 30 days. Other: 1ppd prior to p regnancy and now down to 1pack/week.. Sex
--- OUTSIDE RECORDS SUMMARY | 2022-08-09 21:01 | XMS_ITS | Continuity of Care Document ---
:1980 Author Organization [facility] Adult Address [address] [place] [address]- Care Team Providers Name Role Phone Michael Gutierrez MD Primary Care Physician Encounter [facility] [place] Date(s): 06/14/22 - 06/21/22 [facility] Adult [address] [place] [address]- Encounter Diagnosis Spasm of muscle (Discharge Diagnosis) - 06/14/22 Major depression, recurrent (Discharge Diagnosis) - 06/14/22 Attending Physician: Michael Gutierrez MD Allergies, Adverse Reactions, Alerts No Known [...] Comment: [06/29/2018] VIS sheet given, pt tolerated [id number] Comment: Patient tolerated well NS.3Admin Note: [place] Egra7Killv Note: Wmnfrpaf4Jalws Note: [facility] Medications baclofen 10 mg oral tablet 1, tablet, By Mouth, Daily, PRN, # 30 tablet, Refills 0, Tot. Refills 0, NEEDED FOR MUSCLE SPASMS, 06/14/22 11:41:00 EDT, Route to Pharmacy Electronically, [facility] #[id number], 158, cm, 06/14/22 8:47:00 EDT, Height Start Date: 06/14/22 Status: OrderedCamila 0.35 mg oral tablet 1 tablet = 0.35 mg, By Mouth, Daily, # 28 tablet, 6 Refills, Maintenance, 05/12/22 11:26:00 EDT, Tablet, [facility] #[id number], Partial fill upon patient request if the [...] TAKE 1 TABLET BY MOUTH TWICE DAILY, [facility] #[id number] Start Date: 07/31/19 Status: Orderedfluticasone 50 mcg/inh nasal spray See Instructions, SHAKE LIQUID AND USE 1 SPRAY IN EACH NOSTRIL TWICE DAILY, # 16 Gm, 5 Refills, Maintenance, 04/25/21 9:43:00 EDT, [facility] #01359, 30, SHAKE LIQUID AND USE 1 SPRAY [...] 03/28/19 13:00:13 EDT, Route to Pharmacy Electronically, [id number], [facility] [address]32 Start Date: 03/28/19 Stop Date: 09/24/19 Status: OrderedQUEtiapine 400 mg oral tablet See Instructions, # 30 tablet, Refills 5 Tot. Refills 5, TAKE 1 TABLET BY MOUTH DAILY AT BEDTIME, [facility] #72815 Start Date: 08/09/19 Status: Ordered Problem List [...] and they tend to make her heart race.8gnpnmqbmekucc9Ubwo in years, clonazepam 1mg bid. Has seen neuro in past. Diagnosis Diagnosis Type Effective Dates Health Status Clinical In formant Service Spasm of muscle Discharge 06/14/22 Diagnosis Major Discharge 06/14/22 depression, Diagnosis recurrent Vital Signs Most recent to oldest [Reference Range]: 1 Height 158 cm (06/14/22 8:47 AM) Weight 90.8 kg (06/14/22 8:47 AM) Body Mass Index [18.5-24.99] 36.37 *>HHI* (06/14/22 8:47 AM) Weight Obtained Via Patient/family stated (06/14/22 8:47 AM) Social History Social History Type Response Tobacco Use: 4 or less cigarettes(le ss than 1/4 pack)/day in last 30 days. Other: 3 cigs/day, 26 year smoking history.. Sex
--- OUTSIDE RECORDS SUMMARY | 2022-08-09 21:01 | XMS_ITS | Continuity of Care Document ---
:1980 Author Organization [facility] Adult Address [address] [place] [address]- Care Team Providers Name Role Phone Michael Gutierrez MD Primary Care Physician [place] [facility] [place](s): 01/26/21 - 02/25/21 [facility] Adult [address] [place] [address]- Attending Physician: Mercedez Barajas Admitting Physician: AdmtrMercedez [...] Comment: [06/29/2018] VIS sheet given, pt tolerated [id number] Comment: Patient tolerated well NS.3Admin Note: [place] Ssoy5Oluwj Note: Boumyjxi1Xcmwk Note: [facility] Medications Alcohol Pads See Instructions, # [...] Refills 1, Maintenance, NEEDED FOR MUSCLE SPASMS, 10/08/20 16:18:00 EST, Route to Pharmacy Electronically, [facility] #[id number], 158, cm, 05/21/20 14:00:00 EDT, Height, 83.6, kg,... Start Date: 10/08/20 Status: OrderedclonazePAM 1 mg oral tablet 1 tablet = 1 mg, By Mouth, 2 times a day, # 60 tablet, 1 Refills, Maintenance, 07/30/19 11:44:00 EDT Start Date: 07/30/19 Stop Date: 09/28/19 Status: OrderedcloNIDine 0.2 mg oral tablet See Instructions, # 60 tablet, Refills 5 Tot. Refills 5, TAKE 1 TABLET BY MOUTH TWICE DAILY, [facility] #[id number] Start Date: 07/31/19 Status: OrderedFreestyle Lite Lancets [...] 03/28/19 13:00:13 EDT, Route to Pharmacy Electronically, [id number], [facility] Start Date: 03/28/19 Stop Date: 09/24/19 Status: OrderedOrtho Micronor 0.35 mg oral tablet 1 tablet = 0.35 mg, By Mouth, Daily, # 84 tablet, 2 Refills, Maintenance, 04/06/20 9:47:00 EDT, Tablet, [facility] #[id number], 158, cm, 04/06/20 8:25:00 EDT, Height, 83.6, kg, 04/03/20 7:47:00 EDT, Dry Weight Start Date: 04/06/20 Status: OrderedPreNatal 19 (Nationwide) oral tablet, chewable 1 tablet, Daily, 0 Refills, Maintenance, 04/03/20 8:09:00 EDT Start Date: 04/03/20 Status: OrderedQUEtiapine 400 mg oral tablet See Instructions, # 30 tablet, Refills 5 Tot. Refills 5, TAKE 1 TABLET BY MOUTH DAILY AT BEDTIME, [facility] #[id number] Start Date: 08/09/19 Status: OrderedReadi-Cat 2 oral suspension See Instructions, PATIENT HAS INSTRUCTIONS, # 2 each, 0 Refills, Maintenance, 04/22/20 14:54:00 EDT,[facility] #[id number], PATIENT HAS INSTRUCTIONS, 158, cm, 04/22/20 13:06:00 [...] and they tend to make her heart race.5ftzqcarlrxqui4Nbds in years, clonazepam 1mg bid. Has seen neuro in past. Social History Social History Type Response Tobacco Use: 4 or less cigarettes(le ss than 1/4 pack)/day in last 30 days. Other: 1ppd prior to p regnancy and now down to 1pack/week.. Sex
--- OUTSIDE RECORDS SUMMARY | 2022-08-09 21:01 | XMS_ITS | Continuity of Care Document ---
:1980 Author Organization [facility] ic Address [address] [place] [address]- Care Team Providers Name Role Phone Michael Gutierrez MD Primary Care Physician [place] [facility] [place] 05/19/22 - 06/18/[address] [address] Allergies, Adverse Reactions, Alerts No Known Allergies [...] Comment: [06/29/2018] VIS sheet given, pt tolerated [id number] Comment: Patient tolerated well NS.3Admin Note: [place] Wyop3Egtpl Note: Zzqgfjyw8Szbgd Note: [facility] Medications baclofen 10 mg oral tablet 1, tablet, By Mouth, Daily, PRN, # 30 tablet, Refills 0, Tot. Refills 0, NEEDED FOR MUSCLE SPASMS, 06/14/22 11:41:00 EDT, Route to Pharmacy Electronically, [facility] #[id number], 158, cm, 06/14/22 8:47:00 EDT, Height Start Date: 06/14/22 Status: OrderedCamila 0.35 mg oral tablet 1 tablet = 0.35 mg, By Mouth, Daily, # 28 tablet, 6 Refills, Maintenance, 05/12/22 11:26:00 EDT, Tablet, [facility] #98092, Partial fill upon patient request if the [...] TAKE 1 TABLET BY MOUTH TWICE DAILY, [facility] #72559 Start Date: 07/31/19 Status: Orderedfluticasone 50 mcg/inh nasal spray See Instructions, SHAKE LIQUID AND USE 1 SPRAY IN EACH NOSTRIL TWICE DAILY, # 16 Gm, 5 Refills, Maintenance, 04/25/21 9:43:00 EDT, [facility] #78364, 30, SHAKE LIQUID AND USE 1 SPRAY [...] 03/28/19 13:00:13 EDT, Route to Pharmacy Electronically, [id number], [facility] [address] Start Date: 03/28/19 Stop Date: 09/24/19 Status: OrderedQUEtiapine 400 mg oral tablet See Instructions, # 30 tablet, Refills 5 Tot. Refills 5, TAKE 1 TABLET BY MOUTH DAILY AT BEDTIME, [facility] #98199 Start Date: 08/09/19 Status: Ordered Problem List [...] and they tend to make her heart race.0otthsbaeanvgk7Kvhc in years, clonazepam 1mg bid. Has seen neuro in past. Social History Social History Type Response Tobacco Use: 4 or less cigarettes(le ss than 1/4 pack)/day in last 30 days. Other: 3 cigs/day, 26 year smoking history.. Sex
--- OUTSIDE RECORDS SUMMARY | 2022-08-09 21:01 | XMS_ITS | Continuity of Care Document ---
:1980 Author Organization [facility] Adult Address [address] [place] [address]- Care Team Providers Name Role Phone Brenda SRIVASTAVA, Michael Primary Care Physician [place] [facility] [place](s[place] 10/28/20 - 02/25/21 [facility] Adult [address] [place] [address]- Attending Physician: Michael Gutierrez MD Allergies, Adverse [...] Comment: [06/29/2018] VIS sheet given, pt tolerated [id number] Comment: Patient tolerated well NS.3Admin Note: [place] Xbch0Tonou Note: Upeuisij2Oadov Note: [facility] Medications Alcohol Pads See Instructions, # [...] 10/08/20 16:18:00 EST, Route to Pharmacy Electronically, [facility] #41546, 158, cm, 05/21/20 14:00:00 EDT, Height, 83.6, [...] TAKE 1 TABLET BY MOUTH TWICE DAILY, [facility] #66769 Start Date: 07/31/19 Status: OrderedFreestyle Lite Lancets [...] 03/28/19 13:00:13 EDT, Route to Pharmacy Electronically, [id number], [facility] Start Date: 03/28/19 Stop Date: 09/24/19 Status: OrderedOrtho Micronor 0.35 mg oral tablet 1 tablet = 0.35 mg, By Mouth, Daily, # 84 tablet, 2 Refills, Maintenance, 04/06/20 9:47:00 EDT, Tablet, [facility] #90724, 158, cm, 04/06/20 8:25:00 EDT, Height, 83.6, kg, 04/03/20 7:47:00 EDT, Dry Weight Start Date: 04/06/20 Status: OrderedPreNatal 19 (Nationwide) oral tablet, chewable 1 tablet, Daily, 0 Refills, Maintenance, 04/03/20 8:09:00 EDT Start Date: 04/03/20 Status: OrderedQUEtiapine 400 mg oral tablet See Instructions, # 30 tablet, Refills 5 Tot. Refills 5, TAKE 1 TABLET BY MOUTH DAILY AT BEDTIME, [facility] #71894 Start Date: 08/09/19 Status: OrderedReadi-Cat 2 oral suspension See Instructions, PATIENT HAS INSTRUCTIONS, # 2 each, 0 Refills, Maintenance, 04/22/20 14:54:00 EDT,[facility] #82908, PATIENT HAS INSTRUCTIONS, 158, cm, 04/22/20 13:06:00 [...] and they tend to make her heart race.0mgxnevkeurkig4Qewf in years, clonazepam 1mg bid. Has seen neuro in past. Social History Social History Type Response Tobacco Use: 4 or less cigarettes(le ss than 1/4 pack)/day in last 30 days. Other: 1ppd prior to p regnancy and now down to 1pack/week.. Sex
--- OUTSIDE RECORDS SUMMARY | 2022-08-09 21:01 | XMS_ITS | Continuity of Care Document ---
:1980 Author Organization [facility] ic Address [address] [place] [address]- Care Team Providers Name Role Phone Michael Gutierrez MD Primary Care Physician [place] [facility] [place] - 07/04/[address] [address]- [facility] Attending Physician: Mercedez Barajas Admitting Physician: Mercedez [...] Comment: [06/29/2018] VIS sheet given, pt tolerated [id number] Comment: Patient tolerated well NS.3Admin Note: [place] Rehf5Rdhrz Note: Lqwphqci2Dbvbw Note: [facility] Medications Alcohol Pads See Instructions, # 1 [...] 06/08/20 9:49:00 EDT, Route to Pharmacy Electronically, [facility] #[id number], 158, cm, 05/21/20 14:00:00 EDT, Height, 83.6, [...] TAKE 1 TABLET BY MOUTH TWICE DAILY, [facility] #69338 Start Date: 07/31/19 Status: OrderedFreestyle Lite Lancets [...] 03/28/19 13:00:13 EDT, Route to Pharmacy Electronically, [id number], [facility] Start Date: 03/28/19 Stop Date: 09/24/19 Status: OrderedOrtho Micronor 0.35 mg oral tablet 1 tablet = 0.35 mg, By Mouth, Daily, # 84 tablet, 2 Refills, Maintenance, 04/06/20 9:47:00 EDT, Tablet, [facility] #76858, 158, cm, 04/06/20 8:25:00 EDT, Height, 83.6, kg, 04/03/20 7:47:00 EDT, Dry Weight Start Date: 04/06/20 Status: OrderedPreNatal 19 (Nationwide) oral tablet, chewable 1 tablet, Daily, 0 Refills, Maintenance, 04/03/20 8:09:00 EDT Start Date: 04/03/20 Status: OrderedQUEtiapine 400 mg oral tablet See Instructions, # 30 tablet, Refills 5 Tot. Refills 5, TAKE 1 TABLET BY MOUTH DAILY AT BEDTIME, [facility] #05367 Start Date: 08/09/19 Status: OrderedReadi-Cat 2 oral suspension See Instructions, PATIENT HAS INSTRUCTIONS, # 2 each, 0 Refills, Maintenance, 04/22/20 14:54:00 EDT,[facility] #60868, PATIENT HAS INSTRUCTIONS, 158, cm, 04/22/20 13:06:00 [...] and they tend to make her heart race.4bjgwvlrtcmaio6Nivk in years, clonazepam 1mg bid. Has seen neuro in past. Social History Social History Type Response Tobacco Use: 4 or less cigarettes(le ss than 1/4 pack)/day in last 30 days. Other: 1ppd prior to p regnancy and now down to 1pack/week.. Sex
--- OUTSIDE RECORDS SUMMARY | 2022-08-09 21:01 | XMS_ITS | Continuity of Care Document ---
:1980 Author Organization [facility] Address [address] [place] [address]- Care Team Providers Name Role Phone Brenda SRIVASTAVA, Michael Primary Care Physician Encounter [facility] Date(s): 04/27/20 - 05/27/[address] [address]- [facility] Allergies, Adverse Reactions, Alerts Substance [...] Comment: [06/29/2018] VIS sheet given, pt tolerated [id number] Comment: Patient tolerated well NS.3Admin Note: [place] Lagv8Ejpul Note: Wkovxtau0Cyjvo Note: [facility] Medications Alcohol Pads [...] 04/17/20 11:32:00 EDT, Route to Pharmacy Electronically, [facility] #15854, 158, cm, 04/13/20 14:45:00 EDT, Height, 83.6, [...] TAKE 1 TABLET BY MOUTH TWICE DAILY, [facility] #[id number] Start Date: 07/31/19 Status: OrderedFreestyle Lite Lancets [...] 03/28/19 13:00:13 EDT, Route to Pharmacy Electronically, [id number], [facility] [address] Start Date: 03/28/19 Stop Date: 09/24/19 Status: OrderedOrtho Micronor 0.35 mg oral tablet 1 tablet = 0.35 mg, By Mouth, Daily, # 84 tablet, 2 Refills, Maintenance, 04/06/20 9:47:00 EDT, Tablet, [facility] #64888, 158, cm, 04/06/20 8:25:00 EDT, Height, 83.6, kg, 04/03/20 7:47:00 EDT, Dry Weight Start Date: 04/06/20 Status: OrderedPreNatal 19 (Nationwide) oral tablet, chewable 1 tablet, Daily, 0 Refills, Maintenance, 04/03/20 8:09:00 EDT Start Date: 04/03/20 Status: OrderedQUEtiapine 400 mg oral tablet See Instructions, # 30 tablet, Refills 5 Tot. Refills 5, TAKE 1 TABLET BY MOUTH DAILY AT BEDTIME, [facility] #[id number] Start Date: 08/09/19 Status: OrderedReadi-Cat 2 oral suspension See Instructions, PATIENT HAS INSTRUCTIONS, # 2 each, 0 Refills, Maintenance, 04/22/20 14:54:00 EDT,[facility] #06779, PATIENT HAS INSTRUCTIONS, 158, cm, 04/22/20 13:06:00 EDT, Height, 83.6,kg, 04/03/20 7:47:00 EDT, Dry Weight Start Date: 04/22/20 Status: OrderedSuboxone 8 mg-2 mg sublingual film 2 each, Sublingual, Daily, # 60 each, 0 Refills, Maintenance, 09/16/16 14:28:07 Start Date: 07/15/16 Stop Date: 08/14/16 [...] and they tend to make her heart race.0tsjobiwssoigq3Gfuj in years, clonazepam 1mg bid. Has seen neuro in past. Social History Social History Type Response Tobacco Use: 4 or less cigarettes(le ss than 1/4 pack)/day in last 30 days. Other: 1ppd prior to p regnancy and now down to 1pack/week.. Sex
--- OUTSIDE RECORDS SUMMARY | 2022-08-09 21:01 | XMS_ITS | Continuity of Care Document ---
:1980 Author Organization [facility] ic Address [address] [place] [address]- Care Team Providers Name Role Phone Michael Gutierrez MD Primary Care Physician [place] [facility] [place] - 05/26/[address] [address] [place] Allergies, Adverse Reactions, Alerts No Known Allergies Immunizations Given and Recorded Vaccine Date Status Refusal Reason tetanus/diphtheria/pertussis, acel(Tdap) 01/09/20 Given tetanus/diphtheria/pertussis, acel(Tdap)1 06/29/18 Given influenza virus vaccine, inactivated2 11/07/19 Given influenza virus vaccine, inactivated3 08/28/17 Given influenza virus vaccine, inactivated4 10/02/15 Given Afluria (oldterm)5 07/13/16 Given Tet/Diphth/Acel, Pertussis (oldterm) 03/06/08 Given 1Result Comment: [06/29/2018] VIS sheet given, pt tolerated [id number] Comment: Patient tolerated well NS.3Admin Note: [place] Egxf2Oftpb Note: Usdcwjvx6Exiku Note: [facility] Medications acetaminophen 325 mg oral tablet 650 mg, 2, tablet, By Mouth, Every 4 hours, PRN, # 50 tablet, Refills 0, Tot. Refills 0, Maintenance, as needed for pain, 05/12/22 11:26:00 EDT, Route to Pharmacy Electronically, [facility] #[id number], Partial fill upon patient request if the pr... Start Date: 05/12/22 Status: Orderedbaclofen 10 mg oral tablet 1, tablet, By Mouth, Daily, PRN, # 30 tablet, Refills 0, NEEDED FOR MUSCLE SPASMS, Route to Pharmacy Electronically, [facility] #72989, 158, cm, 03/25/21 13:19:00 EDT, Height, 83.6, kg, 04/03/20 7:47:00 EDT, Dry Weight Start Date: 12/23/21 Status: OrderedCamila 0.35 mg oral tablet 1 tablet = 0.35 mg, By Mouth, Daily, # 28 tablet, 6 Refills, Maintenance, 05/12/22 11:26:00 EDT, Tablet, [facility] #17210, Partial fill upon patient request if the [...] TAKE 1 TABLET BY MOUTH TWICE DAILY, [facility] #69083 Start Date: 07/31/19 Status: Orderedfluticasone 50 mcg/inh nasal spray See Instructions, SHAKE LIQUID AND USE 1 SPRAY IN EACH NOSTRIL TWICE DAILY, # 16 Gm, 5 Refills, Maintenance, 04/25/21 9:43:00 EDT, [facility] #02436, 30, SHAKE LIQUID AND USE 1 SPRAY IN EACH NOSTRIL TWICE DAILY, 158, cm, 03/25/21 13:19:00 ED... Start Date: 04/25/21 Status: Orderedibuprofen 600 mg oral tablet 600 mg, 1, tablet, By Mouth, Every 6 hours, # 50 tablet, Refills 0, Tot. Refills 0, Maintenance, 05/12/22 11:26:00 EDT, Route to Pharmacy Electronically, [facility] #84929, Partial fill upon patient request if the [...] 03/28/19 13:00:13 EDT, Route to Pharmacy Electronically, [id number], [facility] [address] Start Date: 03/28/19 Stop Date: 09/24/19 Status: OrderedQUEtiapine 400 mg oral tablet See Instructions, # 30 tablet, Refills 5 Tot. Refills 5, TAKE 1 TABLET BY MOUTH DAILY AT BEDTIME, [facility] #44571 Start Date: 08/09/19 Status: Ordered Problem List [...] and they tend to make her heart race.2yddkwokcpgjpt3Ztdg in years, clonazepam 1mg bid. Has seen neuro in past. Social History Social History Type Response Tobacco Use: 4 or less cigarettes(le ss than 1/4 pack)/day in last 30 days. Other: 3 cigs/day, 26 year smoking history.. Sex
--- OUTSIDE RECORDS SUMMARY | 2022-08-09 21:01 | XMS_ITS | Continuity of Care Document ---
:1980 Author Organization [facility] ic Address [address] [place] [address]- Care Team Providers Name Role Phone Michael Gutierrez MD Primary Care Physician Encounter [facility] [place] Date(s): 01/09/20 - 03/28/[address] [address]- [facility] Attending Physician: Orquidea Altamirano MD Admitting [...] Comment: [06/29/2018] VIS sheet given, pt tolerated [id number] Comment: Patient tolerated well NS.3Admin Note: [place] Tguk3Msfri Note: Qdizshzm0Osgdy Note: [facility] Medications Alcohol Pads See Instructions, [...] 03/19/20 10:46:00 EDT, Route to Pharmacy Electronically, [facility] #30967, 158.5, cm, 02/13/20 13:28:00 EDT, Height, 56.3, [...] TAKE 1 TABLET BY MOUTH TWICE DAILY, [facility] #[id number] Start Date: 07/31/19 Status: OrderedFreestyle Lite Lancets [...] 03/28/19 13:00:13 EDT, Route to Pharmacy Electronically, [id number], [facility] [address] Start Date: 03/28/19 Stop Date: 09/24/19 Status: OrderedQUEtiapine 400 mg oral tablet See Instructions, # 30 tablet, Refills 5 Tot. Refills 5, TAKE 1 TABLET BY MOUTH DAILY AT BEDTIME, [facility] #85482 Start Date: 08/09/19 Status: OrderedSuboxone 8 mg-2 [...] and they tend to make her heart race.4vwupwquhfrlcd9Lbuh in years, clonazepam 1mg bid. Has seen neuro in past. Social History Social History Type Response Tobacco Use: 4 or less cigarettes(le ss than 1/4 pack)/day in last 30 days. Other: 1ppd prior to p regnancy and now down to 1pack/week.. Sex Female
--- OUTSIDE RECORDS SUMMARY | 2022-08-09 21:01 | XMS_ITS | Continuity of Care Document ---
:1980 Author Organization [facility] Address [address] [place] [address]- Care Team Providers Name Role Phone Brenda SRIVASTAVA, Michael Primary Care Physician En[place] [facility] [place] Date(s): 02/04/20 - 02/11/20 [facility] [address] [place] [address]- [facility] Attending Physician: Ruddy Lopez MD Referring Physician: Adarsh SRVIASTAVA, Orquidea Lomax Allergies, Adverse Reactions, Alerts Substance Reaction Severity Status NKA Active Immunizations Given and Recorded Vaccine Date Status Refusal Reason tetanus/diphtheria/pertussis, acel(Tdap) 01/09/20 Given tetanus/diphtheria/pertussis, acel(Tdap)1 06/29/18 Given influenza virus vaccine, inactivated2 11/07/19 Given influenza virus vaccine, inactivated3 08/28/17 Given influenza virus vaccine, inactivated4 10/02/15 Given Afluria (oldterm)5 07/13/16 Given Tet/Diphth/Acel, Pertussis (oldterm) 03/06/08 Given 1Result Comment: [06/29/2018] VIS sheet given, pt tolerated [id number] Comment: Patient tolerated well NS.3Admin Note: [place] Loar7Agcgg Note: Njghhldx7Haszu Note: [facility] Medications baclofen 10 mg oral tablet 1, tablet, By Mouth, Daily, PRN, # 30 tablet, Refills 0, Tot. Refills 0, Maintenance, NEEDED FOR MUSCLE SPASMS, 12/26/19 15:03:00 EST, Route to Pharmacy Electronically, [facility] #63102, 158.5, cm, 12/26/19 14:30:00 EST, Height, 56.3, [...] TAKE 1 TABLET BY MOUTH TWICE DAILY, [facility] #35489 Start Date: 07/31/19 Status: OrderedNeurontin 300 mg oral capsule 900 mg, 3, capsule, By Mouth, 3 times a day, # 270 capsule, Refills 5, Tot. Refills 5, Maintenance, 03/28/19 13:00:13 EDT, Route to Pharmacy Electronically, [id number], [facility] [address] Start Date: 03/28/19 Stop Date: 09/24/19 Status: OrderedQUEtiapine 400 mg oral tablet See Instructions, # 30 tablet, Refills 5 Tot. Refills 5, TAKE 1 TABLET BY MOUTH DAILY AT BEDTIME, [facility] #37581 Start Date: 08/09/19 Status: OrderedSuboxone 8 mg-2 [...] and they tend to make her heart race.1rqfebewdqndyk8 None in years, clonazepam 1mg bid. Has seen neuro in past. Social History Social History Type Response Tobacco Use: 4 or less cigarettes(le ss than 1/4 pack)/day in last 30 days. Other: 1ppd prior to p regnancy and now down to 1pack/week.. Sex
--- OUTSIDE RECORDS SUMMARY | 2022-08-09 21:01 | XMS_ITS | Continuity of Care Document ---
:1980 Author Organization [facility] Adult Address [address] [place] [id number]- Care Team Providers Name Role Phone Brenda SRIVASTAVA, Michael Primary Care Physician Encounter [facility] Date(s): 06/05/20 - 07/05/20 [facility] Adult [address] [place] [id number]- [facility] Allergies, Adverse Reactions, Alerts [...] Comment: [06/29/2018] VIS sheet given, pt tolerated [id number] Comment: Patient tolerated well NS.3Admin Note: [place] Gary4Twoio Note: [id number] Note: [facility] Medications Alcohol Pads See Instructions, # [...] 06/08/20 9:49:00 EDT, Route to Pharmacy Electronically, [facility] #[id number], 158, cm, 05/21/20 14:00:00 EDT, Height, 83.6, [...] TAKE 1 TABLET BY MOUTH TWICE DAILY, [facility] #[id number] Start Date: 07/31/19 Status: OrderedFreestyle Lite Lancets [...] 03/28/19 13:00:13 EDT, Route to Pharmacy Electronically, [id number], [facility] [id number] Start Date: 03/28/19 Stop Date: 09/24/19 Status: OrderedOrtho Micronor 0.35 mg oral tablet 1 tablet = 0.35 mg, By Mouth, Daily, # 84 tablet, 2 Refills, Maintenance, 04/06/20 9:47:00 EDT, Tablet, [facility] #[id number], 158, cm, 04/06/20 8:25:00 EDT, Height, 83.6, kg, 04/03/20 7:47:00 EDT, Dry Weight Start Date: 04/06/20 Status: OrderedPreNatal 19 ([employer]) oral tablet, chewable 1 tablet, Daily, 0 Refills, Maintenance, 04/03/20 8:09:00 EDT Start Date: 04/03/20 Status: OrderedQUEtiapine 400 mg oral tablet See Instructions, # 30 tablet, Refills 5 Tot. Refills 5, TAKE 1 TABLET BY MOUTH DAILY AT BEDTIME, [facility] #[id number] Start Date: 08/09/19 Status: OrderedReadi-Cat 2 oral suspension See Instructions, PATIENT HAS INSTRUCTIONS, # 2 each, 0 Refills, Maintenance, 04/22/20 14:54:00 EDT,[facility] #[id number], PATIENT HAS INSTRUCTIONS, 158, cm, 04/22/20 13:06:00 [...] and they tend to make her heart race.[id number] in years, clonazepam 1mg bid. Has seen neuro in past. Social History Social History Type Response Tobacco Use: 4 or less cigarettes(le ss than 1/4 pack)/day in last 30 days. Other: 1ppd prior to p regnancy and now down to 1pack/week.. Sex
--- OUTSIDE RECORDS SUMMARY | 2022-08-09 21:01 | XMS_ITS | Continuity of Care Document ---
:1980 Author Organization [facility] Adult Address [address] [place] [id number]- Care Team Providers Name Role Phone Brenda SRIVASTAVA, Michael Primary Care Physician Encounter [facility] Date(s): 01/24/20 - 02/03/20 [facility] Adult [address] [place] [id number]- [facility] Attending Physician: Mercedez Barajas Admitting Physician: Mercedez [...] Comment: [06/29/2018] VIS sheet given, pt tolerated [id number] Comment: Patient tolerated well NS.3Admin Note: [place] [id number] Note: [id number] Note: [facility] Medications baclofen 10 mg oral tablet 1, tablet, By Mouth, Daily, PRN, # 30 tablet, Refills 0, Tot. Refills 0, Maintenance, NEEDED FOR MUSCLE SPASMS, 12/26/19 15:03:00 EST, Route to Pharmacy Electronically, [facility] #[id number], 158.5, cm, 12/26/19 14:30:00 EST, Height, 56.3, [...] TAKE 1 TABLET BY MOUTH TWICE DAILY, [facility] #[id number] Start Date: 07/31/19 Status: OrderedNeurontin 300 mg oral capsule 900 mg, 3, capsule, By Mouth, 3 times a day, # 270 capsule, Refills 5, Tot. Refills 5, Maintenance, 03/28/19 13:00:13 EDT, Route to Pharmacy Electronically, [id number], [facility] [id number] Start Date: 03/28/19 Stop Date: 09/24/19 Status: OrderedQUEtiapine 400 mg oral tablet See Instructions, # 30 tablet, Refills 5 Tot. Refills 5, TAKE 1 TABLET BY MOUTH DAILY AT BEDTIME, [facility] #[id number] Start Date: 08/09/19 Status: OrderedSuboxone 8 mg-2 [...] and they tend to make her heart race.[id number] None in years, clonazepam 1mg bid. Has seen neuro in past. Social History Social History Type Response Tobacco Use: 4 or less cigarettes(le ss than 1/4 pack)/day in last 30 days. Other: 1ppd prior to p regnancy and now down to 1pack/week.. Sex
--- OUTSIDE RECORDS SUMMARY | 2022-08-09 21:01 | XMS_ITS | Continuity of Care Document ---
:1980 Author Organization [facility] Address [address] [place] [phone]- Care Team Providers Name Role Phone Michael Gutierrez MD Primary Care Physician Encounter [facility] Date(s): 01/09/20 - 02/15/[address] [address]- [facility] Attending Physician: Orquidea Altamirano MD Admitting Physician: [...] Comment: [06/29/2018] VIS sheet given, pt tolerated [id number] Comment: Patient tolerated well NS.3Admin Note: [place] [id number] Note: [id number] Note: [facility] Medications Alcohol Pads See Instructions, # 1 [...] 12/26/19 15:03:00 EST, Route to Pharmacy Electronically, [facility] #[id number], 158.5, cm, 12/26/19 14:30:00 EST, Height, 56.3, [...] TAKE 1 TABLET BY MOUTH TWICE DAILY, [facility] #[id number] Start Date: 07/31/19 Status: OrderedFreestyle Lite Lancets [...] 03/28/19 13:00:13 EDT, Route to Pharmacy Electronically, [id number], [facility] [id number] Start Date: 03/28/19 Stop Date: 09/24/19 Status: OrderedQUEtiapine 400 mg oral tablet See Instructions, # 30 tablet, Refills 5 Tot. Refills 5, TAKE 1 TABLET BY MOUTH DAILY AT BEDTIME, [facility] #[id number] Start Date: 08/09/19 Status: OrderedSuboxone 8 mg-2 [...] and they tend to make her heart race.[id number] None in years, clonazepam 1mg bid. Has seen neuro in past. Social History Social History Type Response Tobacco Use: 4 or less cigarettes(le ss than 1/4 pack)/day in last 30 days. Other: 1ppd prior to p regnancy and now down to 1pack/week.. Sex
== END 2022-08-09 21:27 | disposition left against medical advice (07) ==
LOC: HO.ED 20:58
PROVIDERS: Emergency Provider Emergency Medicine; PCP Internal Medicine
DX: Z76.0 Encounter for issue of repeat prescription (principal)
CPT/HCPCS: 99281; 99283

== ENCOUNTER 2022-08-10 10:54 | Emergency (ER) | payer MEDICAID, SELFPAY ==
[2022-08-10 11:23] VITALS: BP 127/71; PULSE 84; RESP 16; TEMP 36.1; O2SAT 95; BMI 36.6
--- NOTE | 2022-08-10 11:33 | ED.GENADULT ---
HPI - General Adult General Chief complaint: General Medical Stated complaint: Psych meds Time Seen by Provider: 08/10/22 11:28 Source: patient Mode of arrival: ambulatory Limitations: no limitations History of Present Illness HPI narrative: 41-year-old female with history of depression, anxiety, opiate use disorder, mood disorder, chronic complex regional pain syndrome who presents to the ER for medication refills. She has a longstanding psychiatric history and has been on psychiatric medications for over 20 years. She states her Seroquel, clonidine, gabapentin, Klonopin have not been refilled by her psychiatrist to as long vacation. She called last week when she was running low and no refills were sent to the pharmacy. She feels anxious, tremulous, headaches. She feels mentally unstable not being on her medications for the last 1 week. She is depressed but not suicidal. She has a therapist who she talks to, they are aware that she ran out of the medications. MD complaint: Medication refill Onset (ago): week(s) (1) Location: head, abdomen, left, right and upper extremity Severity: moderate Quality: aching Pain Consistency: constant Relieving factors: none Exacerbating factors: none Associated symptoms: headaches and loss of appetite Treatments prior to arrival: none Related Data Home Medications Medication Instructions Recorded Confirmed baclofen 10 mg tablet 10 mg PO DAILY PRN muscle spasm 12/03/21 12/03/21 buprenorphine 8 mg-naloxone 2 mg 30 mg sublingual DAILY 12/03/21 12/03/21 sublingual film (Suboxone) buspirone 15 mg tablet 15 mg PO DAILY 12/03/21 12/03/21 clonazepam 1 mg tablet 2.25 mg PO DAILY 12/03/21 12/03/21 clonidine HCl 0.2 mg tablet 0.2 mg PO BID 12/03/21 12/03/21 fluticasone propionate 50 1 spray intranasal BID 12/03/21 12/03/21 mcg/actuation nasal spray,suspension gabapentin 300 mg capsule 900 mg PO TID 12/03/21 12/03/21 methadone 5 mg tablet 5 mg PO DAILY 12/03/21 prazosin 1 mg capsule 2 mg PO BEDTIME 12/03/21 12/03/21 quetiapine 200 mg tablet 200 mg PO BEDTIME 12/03/21 12/03/21 Previous Rx's Medication Instructions Recorded ibuprofen 600 mg tablet 600 mg PO Q8H PRN pain #20 tabs 11/23/21 Bone Stimulator #1 ea 07/18/22 clonazepam 1 mg tablet (Klonopin) 1 mg PO BID #28 tabs 08/10/22 clonidine HCl 0.2 mg tablet 0.2 mg PO BID #28 tabs 08/10/22 gabapentin 300 mg capsule 900 mg PO TID 2 weeks #126 caps 08/10/22 quetiapine 200 mg tablet (Seroquel) 200 mg PO BEDTIME #14 tabs 08/10/22 Allergies Allergy/AdvReac Type Severity Reaction Status Date / Time No Known Allergies Allergy Verified 05/16/22 10:06 Review of Systems Review of Systems: Constitutional: No Fever, No Chills ENT/Mouth: No sore throat, No Rhinorrhea Cardiovascular: No Chest Pain, No SOB Respiratory: No Cough, No Sputum Gastrointestinal: + Nausea, No Vomiting, No Diarrhea, No abdominal Pain Musculoskeletal: No joint pain, No Myalgias Skin: No Skin Lesions, No rash Neuro: No Weakness, No Dizziness, + Headache Psych: + Anxiety/Panic, + Depression, No SI, No HI, No AH, No VH Heme/Lymph: No Bruising, No Lymphadenopathy PMFSH Social History Social History (Updated 06/27/22 @ 13:56 by TEVIN Jo) Patient Tobacco Use Status: Current everyday Tobacco user Advance Directives: No Advance Directives Information Provided: No Current occupational status: employed Current occupation: Rt handed Physical Exam ED Vital Signs: Vital Signs - 24 hr 08/10/22 11:23 Temperature 97 F Pulse Rate 84 Respiratory Rate 16 Blood Pressure 127/71 Pulse Oximetry 95 Oxygen Delivery Method Room Air BMI result Body Mass Index 36.6 Appearance: Alert. Oriented X3. No acute distress. Eyes: Pupils equal, round and reactive to light. ENT: Pharynx normal. Neck: Normal inspection. Neck supple. CVS: Normal heart rate and rhythm. Pulses normal. Respiratory: No respiratory distress. Breath sounds normal. Abdomen: Soft and nontender. +BS x4 Skin: Skin warm and dry. Normal skin color. Normal skin turgor. No rashes. Extremities: No lower extremity edema. UE tremor bilaterally at rest Neuro/psych: Oriented X 3. No motor deficit. No sensory deficit. anxious Course Course Course Narrative: 41-year-old female presenting for evaluation of medication refills. She has been out 1 week from her Seroquel, Klonopin, clonidine, gabapentin. She is feeling anxious and tremulous. She has a history of former opiate use disorder and is now weaned herself off of Suboxone, no longer using any opiates. She has a psychiatrist, PCP and therapist. Her [employer] was reviewed. Sent in 2 weeks worth of her medications and she will follow-up with her psychiatrist for medication refills. She plans to go there today to speak with someone. At this time she is stable for discharge home she is not suicidal, not a danger to herself or others. Stable for DC Discharge Plan Discharge Clinical Impression: Depression, Anxiety Patient Disposition: Home, Self-Care Instructions: Depression (ED), Anxiety (ED) Additional Instructions: Two weeks worth of the below medications have been sent to your pharmacy. Recommend following up with your psychiatrist, PCP and a therapist as soon as possible. If you develop new or worsening symptoms call 911 or come back to the ER for further evaluation. Prescriptions: New gabapentin 300 mg capsule 900 mg PO TID 14 Days Qty: 126 0RF clonazepam [Klonopin] 1 mg tablet 1 mg PO BID Qty: 28 0RF clonidine HCl 0.2 mg tablet 0.2 mg PO BID Qty: 28 0RF quetiapine [Seroquel] 200 mg tablet 200 mg PO BEDTIME Qty: 14 0RF No Action (DME) Bone Stimulator See Rx Instructions .ROUTE .MEDSUPPLY Qty: 1 0RF Rx Instructions: posterior malleolar fracture-delayed healing and osteopenia ibuprofen 600 mg tablet 600 mg PO Q8H PRN (Reason: pain) Qty: 20 0RF methadone 5 mg tablet 5 mg PO DAILY clonazepam 1 mg tablet 2.25 mg PO DAILY quetiapine 200 mg tablet 200 mg PO BEDTIME buspirone 15 mg tablet 15 mg PO DAILY baclofen 10 mg tablet 10 mg PO DAILY PRN (Reason: muscle spasm) fluticasone propionate 50 mcg/actuation spray,suspension 1 spray intranasal BID gabapentin 300 mg capsule 900 mg PO TID clonidine HCl 0.2 mg tablet 0.2 mg PO BID prazosin 1 mg capsule 2 mg PO BEDTIME buprenorphine-naloxone [Suboxone] 8-2 mg film 30 mg sublingual DAILY Interventions: ED Discharge Assessment Last Done: 08/10/22 11:56 Discharge Date/Time: 08/10/22 11:56
[2022-08-10] MEDS: Gabapentin 300 MG CAPSULE PO (11:54)
[2022-08-10] MEDS: cloNIDine HCL 0.2 MG TABLET PO (11:54)
== END 2022-08-10 11:56 | disposition home or self-care (01) ==
PROVIDERS: Emergency Provider Emergency Medicine; PCP Internal Medicine
DX: F33.1 Major depressive disorder, recurrent, moderate (principal); F11.10 Opioid abuse, uncomplicated; R51.9 Headache, unspecified; Z79.899 Other long term (current) drug therapy; F17.210 Nicotine dependence, cigarettes, uncomplicated; Z71.6 Tobacco abuse counseling
CPT/HCPCS: 99283

== ENCOUNTER 2022-08-22 06:33 | Outpatient (REF) | payer MEDICAID, SELFPAY ==
--- NOTE | ~2022-08-22 | XR_ITS ---
EXAMINATION: XR ANKLE, LEFT CLINICAL INFORMATION: Pain COMPARISON: 06/27/2022 TECHNIQUE: AP, lateral, and mortise views of the left ankle. FINDINGS: Diffuse osteopenia. Redemonstration of distal obliquely oriented fibular fracture with callus formation suggestive of interval healing. 2 mm ossific density along the inferior aspect of the medial malleolus again noted. Ankle mortise is preserved. XR/XR ankle LT min 3V IMPRESSION: Redemonstration of distal obliquely oriented fibular fracture with callus formation suggestive of interval healing. 2 mm ossific density along the inferior aspect of the medial malleolus again noted.
== END 2022-08-22 06:34 | disposition home or self-care (01) ==
LOC: HO.HOSX 06:33
PROVIDERS: Visit Provider Physician Assistant
DX: S82.832D Other fracture of upper and lower end of left fibula, subsequent encounter for closed fracture with routine healing (principal)
CPT/HCPCS: 73610; 99212

== ENCOUNTER 2022-10-03 12:32 | Outpatient (REF) | payer MEDICAID, SELFPAY ==
--- NOTE | ~2022-10-03 | XR_ITS ---
EXAMINATION: XR ANKLE, LEFT CLINICAL INFORMATION: Pain COMPARISON: Left ankle x-rays August 22, 2022 TECHNIQUE: AP, lateral, and mortise views of the left ankle. FINDINGS: Diffuse osteopenia. Visualized portion of the distal tibia and fibula demonstrate no acute fracture. Previously visualized fracture line within the distal fibula is not well visualized on today's imaging. Tiny ossific fragment inferior to the medial malleolus is unchanged. There is no focal soft tissue swelling of the ankle. No gross ankle joint effusion. XR/XR ankle LT min 3V IMPRESSION: Essentially completely healed distal fibular fracture with unchanged avulsion fragment off the inferior medial malleolus.
== END 2022-10-03 12:33 | disposition home or self-care (01) ==
LOC: HO.HOSX 12:32
PROVIDERS: Visit Provider Physician Assistant
DX: S82.832D Other fracture of upper and lower end of left fibula, subsequent encounter for closed fracture with routine healing (principal)
CPT/HCPCS: 73610; 99212

== ENCOUNTER → 2023-01-16 11:16 | Outpatient (BNVA) | payer MEDICAID, SELFPAY | PROVIDERS: PCP Internal Medicine; Visit Provider Internal Medicine | DX: G90.50 Complex regional pain syndrome I, unspecified (principal) | CPT/HCPCS: 99202 ==

== ENCOUNTER → 2023-03-06 09:42 | Outpatient (BNVA) | payer OTHER, SELFPAY | PROVIDERS: PCP Internal Medicine; Visit Provider Internal Medicine | DX: G90.522 Complex regional pain syndrome I of left lower limb (principal); Z79.899 Other long term (current) drug therapy | CPT/HCPCS: 99212 ==

== ENCOUNTER 2023-05-26 19:46 | Outpatient (REF) | payer OTHER, SELFPAY ==
--- NOTE | ~2023-05-26 | MR_ITS ---
EXAMINATION: MRI ANKLE WITHOUT CONTRAST, LEFT CLINICAL INFORMATION: Ankle pain, fracture COMPARISON: Radiographs 10/03/2022 TECHNIQUE: MRI without contrast is performed on the left ankle. FINDINGS: Remote, healed fracture of the fibula above the syndesmosis. There is also a remote, healed fracture of the posterior malleolus. No ankle joint effusion. No talar OCD. Ankle ligaments appear intact. Prominent subcutaneous edema superficial to the medial malleolus extending to the dorsum of the midfoot. No focal fluid collection. The Achilles tendon, posterior tibialis tendon, peroneal tendons, flexor and extensor tendons appear intact. The plantar fascia is intact. The sinus tarsi is normal. MR/MR ankle LT wo con IMPRESSION: 1. Remote, healed fractures of the distal fibula and posterior malleolus. No acute osseous abnormality. No joint effusion. 2. Prominent subcutaneous edema superficial to the medial malleolus extending to the dorsum of the midfoot. No focal fluid collection. 3. Tendons and ligaments appear intact.
== END 2023-05-26 19:47 | disposition home or self-care (01) ==
LOC: HO.MRI 19:46
PROVIDERS: Visit Provider Internal Medicine
DX: S82.892G Other fracture of left lower leg, subsequent encounter for closed fracture with delayed healing (principal)
CPT/HCPCS: 73721

== ENCOUNTER 2023-10-18 06:39 | Emergency (ER) | payer OTHER, SELFPAY ==
[2023-10-18 06:45] VITALS: BP 128/86; PULSE 98; RESP 18; TEMP 36.8; O2SAT 97; BMI 38.4
--- NOTE | 2023-10-18 07:04 | ED_ITS ---
HPI - General Adult General Chief complaint: General Medical Stated complaint: med refill Time Seen by Provider: 10/18/23 06:54 Source: patient Mode of arrival: ambulatory Limitations: no limitations History of Present Illness HPI narrative: 42-year-old female presents requesting medication refill clonidine, Seroquel, Atarax, buspirone, gabapentin, baclofen, clonazepam. Wrote me a note and states that her psychiatrist left for vacation and refused to fill her scripts. Unclear when she last filled. Not SI or HI. No hallucinations. Denies medical complaints. Related Data Home Medications Medication Instructions Recorded Confirmed baclofen 10 mg tablet 10 mg PO DAILY PRN muscle spasm 12/03/21 03/06/23 buspirone 15 mg tablet 15 mg PO DAILY 12/03/21 03/06/23 fluticasone propionate 50 1 spray intranasal BID 12/03/21 03/06/23 mcg/actuation nasal spray,suspension methadone 5 mg tablet 5 mg PO DAILY 12/03/21 03/06/23 prazosin 1 mg capsule 2 mg PO BEDTIME 12/03/21 03/06/23 Previous Rx's Medication Instructions Recorded ibuprofen 600 mg tablet 600 mg PO Q8H PRN pain #20 tabs 11/23/21 Bone Stimulator #1 ea 07/18/22 clonazepam 1 mg tablet (Klonopin) 1 mg PO BID #28 tabs 08/10/22 clonidine HCl 0.2 mg tablet 0.2 mg PO BID #28 tabs 08/10/22 quetiapine 200 mg tablet (Seroquel) 200 mg PO BEDTIME #14 tabs 08/10/22 pregabalin 225 mg capsule 225 mg PO TID #90 caps 03/06/23 clonidine HCl 0.2 mg tablet 0.2 mg PO BID 7 days #14 tabs 10/18/23 hydroxyzine HCl 25 mg tablet 25 mg PO BID 7 days #14 tabs 10/18/23 quetiapine 400 mg tablet 400 mg PO BEDTIME 7 days #7 tabs 10/18/23 Allergies Allergy/AdvReac Type Severity Reaction Status Date / Time No Known Allergies Allergy Verified 10/18/23 06:51 Review of Systems Review of Systems: Constitutional : No Weight loss, No Fever, No Chills, No Fatigue, No Malaise ENT/Mouth : No sore throat, No Rhinorrhea Eyes: No Eye Pain, No Swelling, No Redness Cardiovascular : No Chest Pain, No SOB, No Dyspnea on Exertion, No Orthopnea, No Edema, No Palpitations Respiratory : No Cough, No Sputum, No Wheezing Gastrointestinal : No Nausea, No Vomiting, No Diarrhea, No Constipation, No abdominal Pain, No Hematochezia, No Melena Genitourinary : No Dysuria, No Urinary Frequency, No Hematuria, Musculoskeletal : No joint pain, No Myalgias, No Joint Swelling Skin : No Skin Lesions, No rash Neuro : No Weakness, No Numbness, No Dizziness, No Headache Psych : No Anxiety/Panic, No Depression All other systems reviewed and are negative Yes all other systems are reviewed and are negative [facility] Past Medical History Attestation statement: The following information was validated with the patient. Source: old records reviewed and nursing notes reviewed Social History Social History Patient Tobacco Use Status: Current everyday Tobacco user Advance Directives: No Advance Directives Information Provided: No Current occupational status: employed Current occupation: Rt handed Physical Exam ED Vital Signs: Vital Signs - 24 hr 10/18/23 06:45 Temperature 98.3 F Pulse Rate 98 Respiratory Rate 18 Blood Pressure 128/86 Pulse Oximetry 97 Oxygen Delivery Method Room Air BMI result Body Mass Index 38.4 vss Appearance: Alert.? Oriented X3.? No acute distress.? Head: Normocephalic, atraumatic, no step-offs or deformities Eyes: Pupils equal, round and reactive to light.? bilateral pupils appear dilated Neck: Normal inspection.? Neck supple.? CVS: ? Pulses normal.? Respiratory: No respiratory distress.? Skin: Skin warm and dry.? Normal skin color.? Normal skin turgor.? Neuro: Oriented X 3.? No motor deficit.? No sensory deficit. CN 2-12 intact Course Reevaluation(s) Reevaluation #1: I did review patient's medication list and days of meds she last filled baclofen 30 day supply on October 16, 2023, gabapentin 300 mg 30 day supply on 10/12/2023, clonazepam 1 mg tablet 30 day supply last filled on 10/07/2023. Buspirone 10 mg tablet 30 day supply last filled on 09/23/2023. Clonidine 0.2 mg 30 day supply 09/15/2023. Atarax 25 mg capsule 30 day supply last 09/14/2023, Seroquel 400 mg tab 30 day supply last filled on 09/14/2023. Explained to her I could only fill the clonidine, hydroxyzine and Seroquel. She verbalizes understanding and states she has a follow-up appointment with her psychiatrist on 10/25/2023. Educated patient on diagnosis and treatment plan, answered all question, patient verbalizes understanding. At this time patient will be discharged home, advised to return with new or worsening symptoms. Educated on worrisome signs and symptoms and when to return. At this time I feel comfortable discharge home. Time: 07:15 Medical Decision Making Medical Decision Making [facility] Narrative: 1906 42-year-old female presents requesting medication refill clonidine, Seroquel, Atarax, buspirone, gabapentin, baclofen, clonazepam. No medical complaints. No SI or HI. Physical examination bilateral pupils appear dilated likely typical med reconciliation. No signs of withdrawal at this time. No signs of acute psychosis. Normal physical examination plan at this time will do medication reconciliation . Patient not requesting to speak to care team, no signs of acute head psychosis, suicidal or homicidal ideation no indication for Section 12. Differential Diagnosis Differential Diagnoses: The differential diagnosis associated with the presentation includes likely typical med reconciliation. No signs of withdrawal at this time. No signs of acute psychosis. Normal physical examination Admission/Observation Consideration of admission/observation: Escalation of care including admission/observation considered Lab Data [facility] Lab Attestation statement: I reviewed the patient's lab results. External Record Review External record reviewed: Inpatient record, Office record, Outpatient record, Prior outpatient labs, Prior outpatient radiology and Primary care record Prescription Management I considered prescription management with: Other (psych meds ) Critical Care Time Critical Care Time Critical Care Time: No Discharge Plan Discharge Clinical Impression: Medication refill Patient Disposition: Home, Self-Care Instructions: Medicine Refill (ED) Additional Instructions: Take your medications as prescribed. If you were prescribed antibiotics today, it is important that you take your medication to their entirety, do not skip any doses, do not finish them early. Follow-up with your primary care provider this week. Return to the emergency department with new or worsening symptoms. Such as fevers, chills, chest pain, shortness of breath, nausea, vomiting, dizziness, headache, vision changes, lethargy In case of emergency call 911 Prescriptions: New clonidine HCl 0.2 mg tablet 0.2 mg PO BID 7 Days Qty: 14 0RF hydroxyzine HCl 25 mg tablet 25 mg PO BID 7 Days Qty: 14 0RF quetiapine 400 mg tablet 400 mg PO BEDTIME 7 Days Qty: 7 0RF No Action (DME) Bone Stimulator See Rx Instructions .ROUTE .MEDSUPPLY Qty: 1 0RF Rx Instructions: posterior malleolar fracture-delayed healing and osteopenia clonazepam [Klonopin] 1 mg tablet 1 mg PO BID Qty: 28 0RF clonidine HCl 0.2 mg tablet 0.2 mg PO BID Qty: 28 0RF quetiapine [Seroquel] 200 mg tablet 200 mg PO BEDTIME Qty: 14 0RF ibuprofen 600 mg tablet 600 mg PO Q8H PRN (Reason: pain) Qty: 20 0RF methadone 5 mg tablet 5 mg PO DAILY buspirone 15 mg tablet 15 mg PO DAILY baclofen 10 mg tablet 10 mg PO DAILY PRN (Reason: muscle spasm) fluticasone propionate 50 mcg/actuation spray,suspension 1 spray intranasal BID prazosin 1 mg capsule 2 mg PO BEDTIME pregabalin 225 mg capsule 225 mg PO TID Qty: 90 0RF Referrals: Physician,Unknown J [Primary Care Provider] - 2 days Stand Alone Forms: Work/School Release
== END 2023-10-18 07:29 | disposition home or self-care (01) ==
PROVIDERS: Emergency Provider Emergency Medicine Emergency Medical Services
DX: Z76.0 Encounter for issue of repeat prescription (principal)
CPT/HCPCS: 99282

== ENCOUNTER 2024-11-19 01:46 | Inpatient (IN) | payer OTHER, SELFPAY ==
--- NOTE | 2024-11-19 | ECG_ITS ---
Test Reason : baseline qtc Blood Pressure : */* mmHG Vent. Rate : 75 BPM Atrial Rate : 75 BPM P-R Int : 134 ms QRS Dur : 82 ms QT Int : 448 ms P-R-T Axes : 57 44 60 degrees QTcB Int : 500 ms Normal sinus rhythm T wave abnormality, consider anterior ischemia Abnormal ECG No previous ECGs available Referred By: Evie Ma Electronically Signed By: MONALISA VALE MD
--- NOTE | ~2024-11-19 | CT_ITS ---
CLINICAL HISTORY: IVDA, firm, swollen CT left upper extremity with IV contrast. Comparison: None Findings: Extensive soft tissue edema of the left forearm extending to the included distal arm with generalized hyperemia. Complex fluid rim enhancing collection within the common extensor group, predominantly extensor carpi radialis longus. No soft tissue gas, although appearance most compatible with approximately 2 x 5 x 7 cm abscess. Bones intact. Impression: Extensive soft tissue edema compatible with cellulitis left forearm extending to the distal arm, with approximately 2 x 5 x 7 cm abscess in the common extensor group. This document has been electronically signed by: Al Weems MD on 11/19/2024 05:56:47
[2024-11-19 01:48] VITALS: BP 156/73; PULSE 132; RESP 20; TEMP 37.2; O2SAT 100; BMI 27.4
--- NOTE | 2024-11-19 03:26 | ED_ITS ---
HPI - Skin/Abscess/Foreign Bdy General Chief complaint: Skin/Abscess/Foreign Body Stated complaint: swollen elbow/arm Time Seen by Provider: 11/19/24 03:03 Source: patient and old records reviewed Mode of arrival: ambulatory Limitations: no limitations History of Present Illness ED Provider: VIRGEN HPI narrative: 43 yo female with anxiety, complex regional pain syndrome, R hand dominant notes she relapsed about a week ago injected cocaine and then started with significant redness, swelling, she can bend the arm. She denies concerns for FB. She has not had a fever, she notes she ran out of her klonopin 1 month ago. She also has an eschar on R upper arm as well. She states the swelling and redness has worsened and spread MD complaint: rash Onset (ago): week(s) (1) Tetanus up to date: yes Location: LUE Severity: severe Quality: aching Pain Consistency: constant Relieving factors: immobilization Exacerbating factors: palpation and movement Context: IVDA Associated symptoms: chills Treatments prior to arrival: none Related Data Home Medications ?Medication ?Instructions ?Recorded ?Confirmed baclofen 10 mg tablet 10 mg PO DAILY PRN muscle spasm 12/03/21 03/06/23 buspirone 15 mg tablet 15 mg PO DAILY 12/03/21 03/06/23 fluticasone propionate 50 1 spray intranasal BID 12/03/21 03/06/23 mcg/actuation nasal spray,suspension methadone 5 mg tablet 5 mg PO DAILY 12/03/21 03/06/23 prazosin 1 mg capsule 2 mg PO BEDTIME 12/03/21 03/06/23 Previous Rx's ?Medication ?Instructions ?Recorded ibuprofen 600 mg tablet 600 mg PO Q8H PRN pain #20 tabs 11/23/21 Bone Stimulator #1 ea 07/18/22 clonazepam 1 mg tablet (Klonopin) 1 mg PO BID #28 tabs 08/10/22 clonidine HCl 0.2 mg tablet 0.2 mg PO BID #28 tabs 08/10/22 quetiapine 200 mg tablet (Seroquel) 200 mg PO BEDTIME #14 tabs 08/10/22 pregabalin 225 mg capsule 225 mg PO TID #90 caps 03/06/23 clonidine HCl 0.2 mg tablet 0.2 mg PO BID 7 days #14 tabs 12/20/23 hydroxyzine HCl 25 mg tablet 25 mg PO BID 7 days #14 tabs 10/18/23 quetiapine 400 mg tablet 400 mg PO BEDTIME 7 days #7 tabs 10/18/23 Allergies Allergy/AdvReac Type Severity Reaction Status Date / Time No Known Allergies Allergy Verified 11/19/24 01:52 Review of Systems 2 Review of Systems: Constitutional : No Fever, No Chills ENT/Mouth : No sore throat, No Rhinorrhea Eyes: No Eye Pain, No Swelling, No Redness Cardiovascular : No Chest Pain, No SOB Respiratory : No Cough, No Sputum Gastrointestinal : No Nausea, No Vomiting, No Diarrhea, No abdominal Pain Genitourinary : No Dysuria, No Hematuria Musculoskeletal : No joint pain, No Myalgias, No Joint Swelling Skin : No Skin Lesions, positive skin rash Neuro : No Weakness, No Numbness, No Headache Psych : No Anxiety, No Depression Heme/Lymph: No Bruising, No Bleeding,No Lymphadenopathy Endocrine : No Polyuria, No Polydipsia All other systems reviewed and are negative [facility] Past Medical History Attestation statement: The following information was validated with the patient. Source: old records reviewed Medical History (Updated 11/19/24 @ 04:26 by Maria Elena Andujar DO) CRPS (complex regional pain syndrome type I) Social History Social History Patient Tobacco Use Status: Current everyday Tobacco user Advance Directives: No Advance Directives Information Provided: Yes Current occupational status: employed Current occupation: [employer] handed Physical Exam 2 Vital Signs: Vital Signs: Last Vital Signs Temp 98.9 F 11/19/24 01:48 Pulse 132 H 11/19/24 01:48 Resp 20 11/19/24 01:48 BP 156/73 H 11/19/24 01:48 Pulse Ox 100 11/19/24 01:48 O2 Del Method Room Air 11/19/24 01:48 BMI result Body Mass Index 27.4 Appearance: Alert. Oriented X3. No acute distress. Eyes: Pupils equal, round and reactive to light. ENT: Pharynx normal. Neck: Normal inspection. Neck supple. CVS: Normal heart rate and rhythm. Pulses normal. Respiratory: No respiratory distress. Breath sounds normal. Abdomen: Soft and nontender. Skin: Skin warm and dry. Normal skin color. Normal skin turgor. Extremities: No lower extremity edema. L arm distal forearm and elbow redness/swelling no obvious abscess, distal NV intact, can move and range her elbow no signs of septic joint, has eschar on R bicep, there is an open wound on L Neuro: Oriented X 3. No motor deficit. No sensory deficit. CN2-12 intact Medical Decision Making Medical Decision Making [facility] Narrative: 43 yo female with anxiety, complex regional pain syndrome, R hand dominant now here with L forearm cellulitis s/p IVDA one week ago swelling has worsened she is distal NV intact she has normal ROM no signs of septic joint will obtain labs, CT scan for deeper abscess/FB, start on empiric abx she was a difficult stick and hard to get IV on which caused delay in abx Differential Diagnosis Differential Diagnoses: The differential diagnosis associated with the presentation includes IVDA, cellulitis Admission/Observation Consideration of admission/observation: Escalation of care including admission/observation considered admit for IV abx Consult Healthcare Provider Management of the patient was discussed with: Hospitalist (will admit) Lab Data [facility] Lab Attestation statement: I reviewed the patient's lab results. 11/19/24 03:24 11/19/24 03:24 Labs: Lab Results 11/19/24 Range/Units 03:24 WBC 18.9 H (4.8-10.8) X10*3/uL RBC 3.49 L (4.20-5.50) X10*6/uL Hgb 10.5 L (12.0-16.0) g/dl Hct 30.5 L (37.0-47.0) % MCV 87.4 (80.0-98.0) fL MCH 30.1 (27.0-33.0) pg MCHC 34.4 (31.0-35.0) g/dl RDW 15.2 (11.0-16.0) % Plt Count 394 (160-400) X10*3/uL MPV 9.6 (9.4-12.3) fL Immature Gran % (Auto) 0.6 H (0.0-0.4) % Neut % (Auto) 85.4 H (45-73) % Lymph % (Auto) 6.5 L (20-40) % [place] % (Auto) 6.8 (2-11) % Eos % (Auto) 0.5 (0-4) % Baso % (Auto) 0.2 (0-2) % Lymph # (Auto) 1.2 (1.2-4.9) X10*3/uL [place] # (Auto) 1.3 H (0.1-1.2) X10*3/uL Eos # (Auto) 0.1 (0.0-0.4) X10*3/uL Baso # (Auto) 0.0 (0.0-0.2) X10*3/uL Abs Immat Gran (auto) 0.11 H (0.00-0.03) X10*3/uL Absolute Neuts (auto) 16.1 H (2.0-8.3) x10*3/uL Absolute Nucleated RBC 0.000 (0.0-0.012) X10*3/uL Nucleated RBC % (auto) 0.0 (0.0-0.2) /100WBC Sodium 136 (135-145) mmol/L Potassium 3.4 (3.3-5.1) mmol/L Chloride 103 (96-108) mmol/L Carbon Dioxide 22 (22-29) mmol/L Anion Gap 14 (12-20) BUN 16 (9-16) mg/dL Creatinine 0.66 (0.5-1.4) mg/dL Estim Creat Clear Calc 99.4 Estimated GFR > 60 Random Glucose 112 (60-115) mg/dL Lactic Acid 0.7 (0.5-2.0) mmol/L Calcium 8.8 (8.4-10.2) mg/dL Total Bilirubin 0.3 (0.0-1.0) mg/dL AST 23 (5-31) U/L ALT < 6 (0-31) U/L Alkaline Phosphatase 87 (39-117) U/L Total Creatine Kinase 27 (26-140) U/L Total Protein 7.2 (6.5-8.0) g/dL Albumin 3.2 L (3.5-5.0) g/dL Independent Interpretation I performed an independent interpretation of an: CT Scan Radiology Impression Discussion of test interpretation with radiology: I have reviewed the radiologist's reading. Independent Historian Clinical information obtained from an independent historian. History obtained from or confirmed by: Friend External Record Review External record reviewed: Outpatient record Discharge Plan Discharge Clinical Impression: Cellulitis, Elevated WBC count Patient Disposition: Admitted As Inpatient Prescriptions: No Action (DME) Bone Stimulator See Rx Instructions .ROUTE .MEDSUPPLY Qty: 1 0RF Rx Instructions: posterior malleolar fracture-delayed healing and osteopenia clonazepam [Klonopin] 1 mg tablet 1 mg PO BID Qty: 28 0RF clonidine HCl 0.2 mg tablet 0.2 mg PO BID Qty: 28 0RF quetiapine [Seroquel] 200 mg tablet 200 mg PO BEDTIME Qty: 14 0RF ibuprofen 600 mg tablet 600 mg PO Q8H PRN (Reason: pain) Qty: 20 0RF clonidine HCl 0.2 mg tablet 0.2 mg PO BID 7 Days Qty: 14 0RF hydroxyzine HCl 25 mg tablet 25 mg PO BID 7 Days Qty: 14 0RF quetiapine 400 mg tablet 400 mg PO BEDTIME 7 Days Qty: 7 0RF methadone 5 mg tablet 5 mg PO DAILY buspirone 15 mg tablet 15 mg PO DAILY baclofen 10 mg tablet 10 mg PO DAILY PRN (Reason: muscle spasm) fluticasone propionate 50 mcg/actuation spray,suspension 1 spray intranasal BID prazosin 1 mg capsule 2 mg PO BEDTIME pregabalin 225 mg capsule 225 mg PO TID Qty: 90 0RF Print Language: Serbian
[2024-11-19 03:30] LABS: MANUAL DIFF FLAG NO
[2024-11-19 03:31] LABS: Basophils Percent Auto 0.2 % (0-2); Eosinophils Absolute Auto 0.1 X10*3/uL (0.0-0.4); Eosinophils Percent Auto 0.5 % (0-4); Hematocrit 30.5 % (37.0-47.0); Hemoglobin 10.5 g/dl (12.0-16.0); Imm Gran Abs Auto 0.11 X10*3/uL (0.00-0.03); Imm Gran Pct Auto 0.6 % (0.0-0.4); Lymphocytes Absolute Auto 1.2 X10*3/uL (1.2-4.9); Lymphocytes Percent Auto 6.5 % (20-40); Mean Corpuscular HGB Conc 34.4 g/dl (31.0-35.0); Mean Corpuscular Hemoglobin 30.1 pg (27.0-33.0); Mean Corpuscular Volume 87.4 fL (80.0-98.0); Mean Platelet Volume 9.6 fL (9.4-12.3); Monocytes Absolute Auto 1.3 X10*3/uL (0.1-1.2); Monocytes Percent Auto 6.8 % (2-11); Neutrophils Absolute Auto 16.1 x10*3/uL (2.0-8.3); Neutrophils Percent Auto 85.4 % (45-73); Platelet Count 394 X10*3/uL (160-400); Red Blood Count 3.49 X10*6/uL (4.20-5.50); Red Cell Distribution Width 15.2 % (11.0-16.0); White Blood Count 18.9 X10*3/uL (4.8-10.8)
[2024-11-19 03:44] LABS: Lactic Acid 0.7 mmol/L (0.5-2.0)
[2024-11-19 03:59] LABS: Alanine Aminotransferase < 6 U/L (0-31); Albumin Level 3.2 g/dL (3.5-5.0); Alkaline Phosphatase 87 U/L (39-117); Anion Gap 14 (12-20); Aspartate Amino Transferase 23 U/L (5-31); Bilirubin Total 0.3 mg/dL (0.0-1.0); Blood Urea Nitrogen 16 mg/dL (9-16); Calcium 8.8 mg/dL (8.4-10.2); Carbon Dioxide 22 mmol/L (22-29); Chloride 103 mmol/L (96-108); Creatinine Clr Calc Pharmacy 99.4; Estimated Glomerular Filt Rate > 60; Glucose Random 112 mg/dL (60-115); Potassium 3.4 mmol/L (3.3-5.1); Sodium 136 mmol/L (135-145); Total Protein 7.2 g/dL (6.5-8.0)
[2024-11-19] MEDS: Lactated Ringers 1,000 ML 999 ML IV (04:12)
[2024-11-19] MEDS: clonazePAM 1 MG TABLET PO (04:16)
[2024-11-19] MEDS: Piperacillin Sodium/Tazobactam 3.375 GM in 0.9 % Sodium Chloride 50 ML IV (04:16)
[2024-11-19 04:19] LABS: HCG Quantitative < 2 mIU/mL
--- NOTE | 2024-11-19 04:22 | PC.NURSE ---
Delay in administering antibiotics due to unsuccessful attempts at obtaining IV access. 20G IV line established with U/S.
[2024-11-19 04:23] VITALS: BP 155/71; PULSE 88; RESP 18; TEMP 36.9; O2SAT 99
[2024-11-19] MEDS: vancomycin HCL 1,000 MG, vancomycin HCL 750 MG in 0.9 % Sodium Chloride 500 ML 267.5 MG IV (04:43)
[2024-11-19] MEDS: iohexoL 350 MG/ML 100 ML INFUS..BTL 85 ML IV (04:53)
--- NOTE | 2024-11-19 05:42 | P.HPHOSP_ITS ---
History of Present Illness Date of Service: 11/19/24 Chief Complaint: Left arm infection This is a 43-year-old female with pertinent history of polysubstance IVDU, mood disorder, complex regional pain syndrome who presents to the emergency department concerns of left arm infection. Patient states she was doing well until a week ago when she relapsed. Does endorse injection of cocaine and heroin which he last used 1 day prior to presentation. Patient presents today for worsening left forearm redness, swelling and pain. She is able to bend and extend the left elbow. Also has had a right arm wound for a while. Patient states she ran out of Klonopin a month ago and is asking for it. States she is compliant with her other p.o. medications. No fever, chills, chest pain, palpitations, shortness of breath, abdominal pain, changes in urinary or bowel habits. In the emergency department, patient found to be septic and imaging concerning for abscess. Review of Systems 2 Constitutional: Constitutional: Reports no additional constitutional complaints Cardiovascular: Cardiovascular: Reports no additional cardiovascular complaints Respiratory: Respiratory: Reports no additional respiratory complaints Gastrointestinal: Gastrointestinal: Reports no additional gastrointestinal complaints Genitourinary: Genitourinary: Reports no additional female genitourinary complaints [facility] Medical History (Updated 11/19/24 @ 06:04 by Romaine Ramirez MD) CRPS (complex regional pain syndrome type I) Pertinent family history: no family history of early cad Social History Patient Tobacco Use Status: Current everyday Tobacco user Advance Directives: No Advance Directives Information Provided: Yes Current occupational status: employed Current occupation: [employer] Allergies Allergy/AdvReac Type Severity Reaction Status Date / Time No Known Allergies Allergy Verified 11/19/24 01:52 Active Medications: Current Medications Acetaminophen (Acetaminophen 325 Mg Tablet) 650 mg PO Q6H PRN PRN Reason: Pain, Mild 1-3,fever,headache Calcium Carbonate (Calcium Carbonate 750 Mg Tab.Chew) 750 mg PO Q4H PRN PRN Reason: Heartburn Magnesium Hydroxide (Milk Of Magnesia 30 Ml Oral.Susp) 30 ml PO DAILY PRN PRN Reason: Constipation Melatonin (Melatonin 3 Mg Tablet) 6 mg PO BEDTIME PRN PRN Reason: Insomnia Ondansetron HCl (Ondansetron Hcl 4 Mg/2 Ml Vial) 4 mg IVPUSH Q8H PRN PRN Reason: Nausea and Vomiting Pharmacy Consult (Consult Rx Vancomycin Dosing) 1 each MISCELLANE DAILY PRN PRN Reason: Consult order Sodium Chloride (0.9 % Sodium Chloride Flush 3 Ml Syringe) 3 ml IVFLUSH QSHIFT [facility] Home Medications ?Medication ?Instructions ?Recorded ?Confirmed ?Last Taken ?Type baclofen 10 mg tablet 10 mg PO DAILY PRN muscle spasm 12/03/21 03/06/23 Unknown History buspirone 15 mg tablet 15 mg PO DAILY 12/03/21 03/06/23 Unknown History fluticasone propionate 50 1 spray intranasal BID 12/03/21 03/06/23 Unknown History mcg/actuation nasal spray,suspension methadone 5 mg tablet 5 mg PO DAILY 12/03/21 03/06/23 Unknown History prazosin 1 mg capsule 2 mg PO BEDTIME 12/03/21 03/06/23 Unknown History Physical Exam 2 Vital Signs and Narrative: Vital Signs: Last Vital Signs Temp 98.4 F 11/19/24 04:23 Pulse 88 11/19/24 04:23 Resp 18 11/19/24 04:23 BP 155/71 H 11/19/24 04:23 Pulse Ox 99 11/19/24 04:23 O2 Del Method Room Air 11/19/24 04:23 BMI result Body Mass Index 27.4 Middle-aged female lying in bed in no distress Neck supple, no JVD Regular rate and rhythm, S1-S2 heard Regular breath sounds bilaterally, no wheezing or crackles appreciated Abdomen soft nontender, no guarding, no rigidity Patient is awake, alert and oriented to self, place, time and person ; no focal motor deficit Psych: Normal mood Left arm with swelling, erythema and tenderness near elbow joint and fluctuation (as pictured below) ; eschar seen on right arm Skin: Other: Results Labs 11/19/24 03:24 11/19/24 03:24 Labs: Laboratory Results - last 24 hr 11/19/24 03:24 MCV 87.4 MCH 30.1 MCHC 34.4 RDW 15.2 Plt Count 394 MPV 9.6 Immature Gran % (Auto) 0.6 H Neut % (Auto) 85.4 H Lymph % (Auto) 6.5 L [place] % (Auto) 6.8 Eos % (Auto) 0.5 Baso % (Auto) 0.2 Lymph # (Auto) 1.2 [place] # (Auto) 1.3 H Eos # (Auto) 0.1 Baso # (Auto) 0.0 Abs Immat Gran (auto) 0.11 H Absolute Neuts (auto) 16.1 H Absolute Nucleated RBC 0.000 Nucleated RBC % (auto) 0.0 Anion Gap 14 Estim Creat Clear Calc 99.4 Estimated GFR > 60 Random Glucose 112 Lactic Acid 0.7 Calcium 8.8 Total Bilirubin 0.3 AST 23 ALT < 6 Alkaline Phosphatase 87 Total Creatine Kinase 27 Total Protein 7.2 Albumin 3.2 L Beta HCG, Quant < 2 Assessment and Plan (1) Cellulitis: Qualifiers: Laterality: left Site of cellulitis: extremity Site of cellulitis of extremity: upper extremity Qualified Code(s): L03.114 - Cellulitis of left upper limb Status: Acute (2) Abscess: Status: Acute Plan This is a 43-year-old female with pertinent history of polysubstance IVDU, mood disorder, complex regional pain syndrome who presents to the emergency department concerns of left arm infection. #. Sepsis due to left arm cellulitis with abscess: Resuscitated with IV crystalloids. Initiating empiric IV vancomycin and IV Zosyn. Lactic acid and blood culture obtained. Monitor for improvement. General surgery consulted #. Mood disorder: Continue home mood stabilizers #. Polysubstance use disorder: Monitor for withdrawal. Consulting Addiction Team #. Normocytic anemia: Monitor and outpatient follow-up Med rec pending DVT prophylaxis: Hold Lovenox until surgical evaluation Full code Admit as inpatient and will require two night minimum hospital stay for IV antibiotics (as above), which is not possible in a lesser acute setting. Surgical consult pending Quality Stroke Does the patient have a stroke diagnosis?: No VTE Prior VTE?: No VTE Risk Level:: Medical - moderate - high VTE Device Contraindication: Treatment Not Indicated VTE Drug Contraindication: N/A - Med Ordered
[2024-11-19 07:16] VITALS: BP 117/87; PULSE 84; RESP 20; TEMP 36.9; O2SAT 100
[2024-11-19] MEDS: Acetaminophen 325 MG TABLET 650 MG PO ×2 (07:28→15:06)
--- NOTE | 2024-11-19 07:45 | P.CONGS_ITS ---
History of Present Illness Consult details Consult date: 11/19/24 <Molly Soliman - Last Filed: 11/19/24 08:01> Narrative: Pt presents to the ED with a 3 day history of L arm swelling and redness. Pt is a IVDU and recently relapsed. She noted pain in her left arm 3 days ago and that the swelling got worse overnight. Pt endorsed fever and chills 2 days ago but that has since resolved. On physical exam, edema and erythema is noted surrounding the L olecranon and extending down the forearm. On palpation, pt's arm is tense and firm with tenderness to palpation throughout. No signs of fluctuance noted at this time. A small [id number] superficial wound is observed near the L olecranon. No purulent discharge noted throughout. Radial pulse palpable and normal. She had a similar infection in the right forearm that resolved without seeking any medical treatment. <Molly Soliman - Last Filed: 11/19/24 08:01> Pt presents to the ED with a 3 day history of L arm swelling and redness. Pt is a IVDU and recently relapsed. She noted pain in her left arm 3 days ago near where she has previously injected and that the swelling got worse overnight. Pt endorsed fever and chills 2 days ago but that has since resolved. She had a similar infection in the right forearm that resolved without seeking any medical treatment. Work up in the ED included CBC, BMP which was significant for a leukocytosis of 18.9. CT scan left elbow showed extensive soft tissue edema of the left forearm extending to the distal arm, with possible 2 x 5 x 7 cm abscess in the common extensor group. She was tachycardic to the 130s. She was admitted to the hospitalist service for further treatment of the left forearm cellulitis, possible abscess and sepsis. She was started on IV zosyn and vanco. General surgery was consulted for concern for abscess. <Ernestina Cruz PA-C - Last Filed: 11/19/24 08:21> Review of Systems 2 Constitutional: Comments: Endorsed fever and chills 2 days ago but denies presence of either today. <Molly Soliman - Last Filed: 11/19/24 08:01> Cardiovascular: Cardiovascular: Reports no additional cardiovascular complaints <Molly Soliman - Last Filed: 11/19/24 08:01> Respiratory: Respiratory: Reports no additional respiratory complaints < Molly Williamsonabielnita Last Filed: 11/19/24 08:01> Integumentary/Breasts: Skin/Breast: Reports as per HPI <Molly Janenita Last Filed: 11/19/24 08:01> [facility] Past Medical History Medical History: Medical History (Updated 11/19/24 @ 06:04 by Romaine Ramirez MD) CRPS (complex regional pain syndrome type I) <Molly Jourdan Last Filed: 11/19/24 08:01> Social History Social History: Social History Patient Tobacco Use Status: Current everyday Tobacco user Smoked in Last 30 Days: Yes Use of substances other than those prescribed or required for medical reasons: Yes Substance Use Type: Heroin Substance Use Frequency: Chronic Longstanding Last Used Substance: Days (ago) Any prior treatment program specific to substance use: No Advance Directives: No Advance Directives Information Provided: Yes Nutrition Risks: No Nutritional Risk Patient : No Current occupational status: employed Current occupation: Rt handed <Molly Janenita Last Filed: 11/19/24 08:01> Meds Allergies/Adverse reactions: Allergies Allergy/AdvReac Type Severity Reaction Status Date / Time No Known Allergies Allergy Verified 11/19/24 01:52 <Molly Janenita Last Filed: 11/19/24 08:01> Active Medications: Current Medications Acetaminophen (Acetaminophen 325 Mg Tablet) 650 mg PO Q6H PRN PRN Reason: Pain, Mild 1-3,fever,headache Last Admin: 11/19/24 07:28 Dose: 650 mg Calcium Carbonate (Calcium Carbonate 750 Mg Tab.Chew) 750 mg PO Q4H PRN PRN Reason: Heartburn Piperacillin Sod/Tazobactam (Sod 4.5 gm/ Sodium Chloride) 100 mls @ 200 mls/hr IV Q6H VESTA Magnesium Hydroxide (Milk Of Magnesia 30 Ml Oral.Susp) 30 ml PO DAILY PRN PRN Reason: Constipation Melatonin (Melatonin 3 Mg Tablet) 6 mg PO BEDTIME PRN PRN Reason: Insomnia Ondansetron HCl (Ondansetron Hcl 4 Mg/2 Ml Vial) 4 mg IVPUSH Q8H PRN PRN Reason: Nausea and Vomiting Pharmacy Consult (Consult Rx Vancomycin Dosing) 1 each MISCELLANE DAILY PRN PRN Reason: Consult order Sodium Chloride (0.9 % Sodium Chloride Flush 3 Ml Syringe) 3 ml IVFLUSH QSHIFT [facility] Last Admin: 11/19/24 07:29 Dose: Not Given <Molly Soliman Last Filed: 11/19/24 08:01> Home medications: Home Medications ?Medication ?Instructions ?Recorded ?Confirmed ?Last Taken ?Type baclofen 10 mg tablet 10 mg PO DAILY PRN muscle spasm 12/03/21 03/06/23 Unknown History buspirone 15 mg tablet 15 mg PO DAILY 12/03/21 03/06/23 Unknown History fluticasone propionate 50 1 spray intranasal BID 12/03/21 03/06/23 Unknown History mcg/actuation nasal spray,suspension methadone 5 mg tablet 5 mg PO DAILY 12/03/21 03/06/23 Unknown History gabapentin 300 mg capsule 300 mg PO TID 11/19/24 Unknown History <Molly Soliman Last Filed: 11/19/24 08:01> Physical Exam 2 Vital Signs: Vital Signs: Last Vital Signs Temp 98.4 F 11/19/24 07:16 Pulse 84 11/19/24 07:16 Resp 20 11/19/24 07:16 BP 117/87 11/19/24 07:16 Pulse Ox 100 11/19/24 07:16 O2 Del Method Room Air 11/19/24 07:16 BMI result Body Mass Index 27.4 <Molly Soliman Last Filed: 11/19/24 08:01> Const: General: cooperative, no acute distress and alert <Molly Soliman Last Filed: 11/19/24 08:01> Orientation/consciousness: patient oriented x3 <Molly Soliman Last Filed: 11/19/24 08:01> Resp: Effort & Inspection: normal respiratory effort and able to speak in complete sentences <Molly Soliman Last Filed: 11/19/24 08:01> Cardio: Rate: regular rate <Molly Soliman Last Filed: 11/19/24 08:01> Rhythm: regular rhythm <Molly Soliman Last Filed: 11/19/24 08:01> Heart sounds: S1 normal heart sound present and S2 normal heart sound present <Molly Claywarren - Last Filed: 11/19/24 08:01> Skin: General skin exam: erythema (L arm) <Molly Williamsonabielnita - Last Filed: 11/19/24 08:01> Lesions: lesion noted (Near left olecranon [id number] superficial lesion) <Molly Williamsonabielnita - Last Filed: 11/19/24 08:01> Neuro: General: patient oriented x3 <Molly Williamsonabielnita - Last Filed: 11/19/24 08:01> Extrem: Other: left upper extremity- edema and erythema is noted surrounding the L olecranon and e xtending distally to the forearm. On palpation, pt's arm is tense and firm with tenderness to palpation throughout. small amount of superficial fluctuance noted. A small [id number] superficial wound is observed near the L olecranon. No purulent discharge noted. Radial pulse palpable and normal. <Ernestina Cruz PA-C - Last Filed: 11/19/24 08:21> Results Labs Result diagrams: 11/19/24 03:24 11/19/24 03:24 <Molly Williamsonwarren - Last Filed: 11/19/24 08:01> Labs: Abnormal lab results 11/19/24 Range/Units 03:24 WBC 18.9 H (4.8-10.8) X10*3/uL RBC 3.49 L (4.20-5.50) X10*6/uL Hgb 10.5 L (12.0-16.0) g/dl Hct 30.5 L (37.0-47.0) % Immature Gran % (Auto) 0.6 H (0.0-0.4) % Neut % (Auto) 85.4 H (45-73) % Lymph % (Auto) 6.5 L (20-40) % [place] # (Auto) 1.3 H (0.1-1.2) X10*3/uL Abs Immat Gran (auto) 0.11 H (0.00-0.03) X10*3/uL Absolute Neuts (auto) 16.1 H (2.0-8.3) x10*3/uL Albumin 3.2 L (3.5-5.0) g/dL Short CBC 11/19/24 Range/Units 03:24 WBC 18.9 H (4.8-10.8) X10*3/uL Hgb 10.5 L (12.0-16.0) g/dl Hct 30.5 L (37.0-47.0) % Plt Count 394 (160-400) X10*3/uL BMP 11/19/24 03:24 Sodium 136 Potassium 3.4 Chloride 103 Carbon Dioxide 22 BUN 16 Creatinine 0.66 Calcium 8.8 Cardiac Enzymes 11/19/24 Range/Units 03:24 Total Creatine Kinase 27 (26-140) U/L Liver Function 11/19/24 Range/Units 03:24 Total Bilirubin 0.3 (0.0-1.0) mg/dL AST 23 (5-31) U/L ALT < 6 (0-31) U/L Alkaline Phosphatase 87 (39-117) U/L Albumin 3.2 L (3.5-5.0) g/dL All other labs normal. <Molly Soliman - Last Filed: 11/19/24 08:01> Imaging Additional studies: left elbow CT reviewed <Ernestina Cruz PA-C - Last Filed: 11/19/24 08:21> Assessment and Plan (1) Cellulitis: Qualifiers: Laterality: left Site of cellulitis: extremity Site of cellulitis of extremity: upper extremity Qualified Code(s): L03.114 - Cellulitis of left upper limb <Molly Soliman - Last Filed: 11/19/24 08:01> Status: Acute <Molly Soliman - Last Filed: 11/19/24 08:01> Since no fluctuance noted, an I+D is not warranted at this time. At this time, continue current antibiotics and observe. Consult to ortho as the infection seems deeper than the muscle. <Molly Soliman - Last Filed: 11/19/24 08:01> 43 year old female with hx of IVDA presenting with left forearm pain and redness admitted for sepsis and cellulitis. CT scan left elbow shows extensive soft tissue edema and intramuscular abscess. Patient does have extensive cellulitis on exam just proximal to the elbow with small amount of superficial fluctuance but tense edema surrounding. Given the proximity to the joint and deeper possible abscess vs phlegmon, will consult orthopedics for evaluation. Keep patient NPO for now until seen by ortho and if no surgical intervention planned can advance diet. Cont IV abx, left arm elevation. <Ernestina Cruz PA-C - Last Filed: 11/19/24 08:21> 43 year old female with hx of IVDA presenting with left forearm pain and redness admitted for sepsis and cellulitis. CT scan left elbow shows extensive soft tissue edema and intramuscular abscess. Patient does have extensive cellulitis on exam just proximal to the elbow with small amount of superficial fluctuance but tense edema surrounding. Given the proximity to the joint and deeper possible abscess vs phlegmon, will consult orthopedics for evaluation. Keep patient NPO for now until seen by ortho and if no surgical intervention planned can advance diet. Cont IV abx, left arm elevation. Patient seen and examined independently and agree with the above assessment and plan. Patient has tenderness especially in the elbow but does not appear to have any muscle weakness, numbness or edema extending into the left hand. Agree with ortho consult given proximity to elbow. Discussed with ortho service. < Mihai Gonzalez MD - Last Filed: 11/19/24 08:31> Procedures Date of Service Date of Service: 11/19/24 <Molly Soliman - Last Filed: 11/19/24 08:01> 11/19/24 <Ernestina Cruz PA-C - Last Filed: 11/19/24 08:21> 11/19/24 <Mihai Gonzalez MD - Last Filed: 11/19/24 08:31>
--- NOTE | 2024-11-19 07:56 | PHA.PROG ---
Admission Date/Time: November 19, 2024 05:39 Indication: respiratory Weight in k.039 kg Adjusted body weight in Kg: [place] body weight in Kg: Obesity Dosing Indication % IBW: Serum Creatinine - Last 168 Hours 11/19/24 03:24 Creatinine 0.66 Estimated CrCl and GFR - Last 168 Hours 11/19/24 03:24 Estim Creat Clear Calc 99.4 Estimated GFR > 60 Vancomycin Loading Dose: 1750 x1 Current Vancomycin Dosing Regimen: 1000mg Q12H Vancomycin Monitoring using AUC goal of 400 - 600 range with trough as surrogate marker: 452 mg/L Date and Time for next Vancomycin Level to be drawn: 11/20 @1500 Pharmacist Comments on Vancomycin Plan: predicted trough of 13.2 mg/L Vancomycin dosing will take advantage of [employer] as a clinical decision support tool that uses Bayesian modeling to calculate individual patient's pharmacokinetic parameters and forecast the patient's drug concentration time course with the target goal AUC 24 range of 400 - 600 mg/L/hr.
--- NOTE | 2024-11-19 07:56 | PM.CNOR ---
History of Present Illness [facility] Consult date: 11/19/24 Chief complaint: skin infection Narrative: 43 yo female admitted to the medical service for left arm abscess. She last used IV cocaine a few days ago, subsequently she developed redness and pain. On admission she was started on IV abx and orthopedics was consulted due to findings on Ct scan : Extensive soft tissue edema compatible with cellulitis left forearm extending to the distal arm, with approximately 2 x 5 x 7 cm abscess in the common extensor group. Review of Systems Review of Systems: Yes all other systems are reviewed and are negative [facility] Past Medical History Medical History (Updated 11/19/24 @ 06:04 by Romaine Ramirez MD) CRPS (complex regional pain syndrome type I) Social History Social History Patient Tobacco Use Status: Current everyday Tobacco user Smoked in Last 30 Days: Yes Use of substances other than those prescribed or required for medical reasons: Yes Substance Use Type: Heroin Substance Use Frequency: Chronic Longstanding Last Used Substance: Days (ago) Any prior treatment program specific to substance use: No Advance Directives: No Advance Directives Information Provided: Yes Nutrition Risks: No Nutritional Risk Patient : No Current occupational status: employed Current occupation: Rt handed Meds Allergies Allergy/AdvReac Type Severity Reaction Status Date / Time No Known Allergies Allergy Verified 11/19/24 01:52 Active Medications: Current Medications Acetaminophen (Acetaminophen 325 Mg Tablet) 650 mg PO Q6H PRN PRN Reason: Pain, Mild 1-3,fever,headache Last Admin: 11/19/24 07:28 Dose: 650 mg Calcium Carbonate (Calcium Carbonate 750 Mg Tab.Chew) 750 mg PO Q4H PRN PRN Reason: Heartburn Piperacillin Sod/Tazobactam (Sod 4.5 gm/ Sodium Chloride) 100 mls @ 200 mls/hr IV Q6H VESTA Vancomycin HCl 1,000 mg/ (Sodium Chloride) 270 mls @ 270 mls/hr IV Q12H VESTA Magnesium Hydroxide (Milk Of Magnesia 30 Ml Oral.Susp) 30 ml PO DAILY PRN PRN Reason: Constipation Melatonin (Melatonin 3 Mg Tablet) 6 mg PO BEDTIME PRN PRN Reason: Insomnia Ondansetron HCl (Ondansetron Hcl 4 Mg/2 Ml Vial) 4 mg IVPUSH Q8H PRN PRN Reason: Nausea and Vomiting Pharmacy Consult (Consult Rx Vancomycin Dosing) 1 each MISCELLANE DAILY PRN PRN Reason: Consult order Sodium Chloride (0.9 % Sodium Chloride Flush 3 Ml Syringe) [facility] Last Admin: 11/19/24 07:29 Dose: Not Given Home Medications ?Medication ?Instructions ?Recorded ?Confirmed ?Last Taken ?Type baclofen 10 mg tablet 10 mg PO DAILY PRN muscle spasm 12/03/21 11/19/24 Unknown History buspirone 10 mg tablet 10 mg PO BID 11/19/24 11/19/24 11/18/24 History gabapentin 300 mg capsule 900 mg PO TID 11/19/24 11/19/24 11/18/24 History hydroxyzine pamoate 25 mg capsule 25 mg PO BID 11/19/24 11/19/24 11/18/24 History methadone 10 mg/mL oral concentrate 110 mg PO BEDTIME 11/19/24 Unknown History methadone 10 mg/mL oral concentrate 120 mg PO DAILY 11/19/24 Unknown History naproxen sodium 220 mg tablet 220 mg PO BID PRN migraines 11/19/24 11/19/24 Unknown History (Aleve) Physical Exam Vital Signs: Vital Signs: Last Vital Signs Temp 98.4 F 11/19/24 07:16 Pulse 84 11/19/24 07:16 Resp 20 11/19/24 07:16 BP 117/87 11/19/24 07:16 Pulse Ox 100 11/19/24 07:16 O2 Del Method Room Air 11/19/24 07:16 BMI result Body Mass Index 27.4 Const: General: cooperative, healthy appearing, comfortable and no acute distress Extrem: Other: Left forearm redness and swelling distal to the elbow. There is an area along the lateral epicondyle that appears to be a superficial ulcer. No purulance or drainage. The forearm is firm and tender. She can perform ROm of the elbow. Wrist flexion and extension intact. NVI. Results Labs 11/19/24 03:24 11/19/24 03:24 Labs: Abnormal lab results 11/19/24 Range/Units 03:24 WBC 18.9 H (4.8-10.8) X10*3/uL RBC 3.49 L (4.20-5.50) X10*6/uL Hgb 10.5 L (12.0-16.0) g/dl Hct 30.5 L (37.0-47.0) % Immature Gran % (Auto) 0.6 H (0.0-0.4) % Neut % (Auto) 85.4 H (45-73) % Lymph % (Auto) 6.5 L (20-40) % [place] # (Auto) 1.3 H (0.1-1.2) X10*3/uL Abs Immat Gran (auto) 0.11 H (0.00-0.03) X10*3/uL Absolute Neuts (auto) 16.1 H (2.0-8.3) x10*3/uL Albumin 3.2 L (3.5-5.0) g/dL H & H 11/19/24 Range/Units 03:24 Hgb 10.5 L (12.0-16.0) g/dl Hct 30.5 L (37.0-47.0) % All other labs normal. Assessment and Plan (1) Abscess: Status: Acute Plan IV abx elbow ROM warm compress to forearm qid continue to follow no surgical intervention at this time Procedures Date of Service Date of Service: 11/19/24
--- NOTE | 2024-11-19 08:37 | PC.NURSE ---
assumed care of patient at 0700, patient is awake, alert and oriented x4. left lower arm noted to be warm, swollen and red. patient has open area on the back of right arm that she states drained itself prior to ED arrival. patient requested prn tylenol for pain, despite pain level being 8/10, wanted the tylenol, patient medicated per MAR, VSS, resp even and unlabored.
--- NOTE | 2024-11-19 08:57 | PHA.MEDREC ---
Pharmacy Consult ? Medication Reconciliation Pharmacy has completed the medication reconciliation, spoke to patient at bedside who confirmed all medications, knew doses and frequencies. Patient stated she takes clonazepam 1 mg BID although she has claims for 2mg BID. Pt also stated she has had pregabalin in the past although it was not in recent claims and PDMP did not show any recent claims either. Pt also said she gets 230mg of methadone, 120mg AM and 110mg PM. Only uses Aleve otc for migraines.
[2024-11-19] MEDS: Gabapentin 300 MG CAPSULE 900 MG PO ×3 (09:34→21:33)
[2024-11-19] MEDS: hydrOXYzine HCL 25 MG TABLET PO ×2 (09:34→21:33)
[2024-11-19] MEDS: Piperacillin Sodium/Tazobactam 4.5 GM in 0.9 % Sodium Chloride 100 ML IV ×3 (09:34→21:29)
[2024-11-19] MEDS: busPIRone HCl 10 MG TABLET PO ×2 (09:34→21:33)
[2024-11-19] MEDS: cloNIDine HCL 0.2 MG TABLET PO ×2 (09:34→21:33)
[2024-11-19] MEDS: Baclofen 10 MG TABLET PO (09:47)
--- NOTE | 2024-11-19 11:19 | PC.NURSE ---
patient methadone dose verified by [facility] YVETTE KAUFMAN verified patient gets dosed in clinic with 120mg in the AM and has take home bottles 110mg for PM dose. total dose 230mg
--- NOTE | 2024-11-19 12:05 | HE.PHANOTE ---
Addendum entered by Gatito Gamez [facility] 11/19/24 15:52: Patient last took 110 mg at home on 11/18/24 per patient per nurse Gala Ross. Original Note: METHADONE Dose: 230mg total, 120mg QAM and 110mg QPM. Last dose 120mg 11/16/24 at [facility] per YVETTE Murray. Patient also got 6 take home bottles. Will follow up with nurse to see when patient's actual last dose was.
--- NOTE | 2024-11-19 14:49 | PC.NURSE ---
pt seen by GABY Benítez 1 day supply of methadone counted and sent to pharmacy- 2 bottles sent one, 11ml and one 12ml. Sam Ma NP to order todays dose
--- NOTE | 2024-11-19 15:07 | PC.NURSE ---
late entry: RE APAP Pt complains of 4/10 pain--per DEC only analgesia ordered is APAP at time.. Administered per DEC provider notified. Awaiting orders for further pain managemen
[2024-11-19] MEDS: 0.9 % Sodium Chloride Flush 3 ML SYRINGE IVFLUSH (15:08)
--- NOTE | 2024-11-19 15:19 | MHC.RECOVRN ---
Met with pt in [facility] after consult placed to Addiction Medicine for opioid and cocaine use disorder. Pt had presented to the ED reporting left arm is swollen and red with a wound to area; reports IV cocaine use. Upon evaluation, pt medically admitted for treatment of cellulitis and abscess. Pt laying in bed, awake, alert, easily engages in conversation. Pt active with [facility] in [place], receives 120 mg methadone in the morning and 110 mg in the evening. Pt reports she was provided with 5 take home bottles on 11/16 and was scheduled to present to the OTP this morning. Pt reports she last took a dose of methadone yesterday morning. Pt reports she has had split dosing x months and it has been helpful. Pt reports a recurrence after 10 years in recovery. Pt reports pain in her arm and is requesting Tylenol. RN made aware. Plan to further discuss substance use and recovery supports when pt is more comfortable. Pt denies questions or concerns at this time. Discussed with Evie Ma APRN.
[2024-11-19] MEDS: methADONE HCl 20 MG/2 ML ORAL.CONC 110 MG PO (16:47)
[2024-11-19] MEDS: vancomycin HCL 1,000 MG in 0.9 % Sodium Chloride 250 ML 270 MG IV (17:46)
[2024-11-19 19:31] VITALS: BP 109/47; PULSE 84; RESP 16; TEMP 37.1; O2SAT 99
[2024-11-19] MEDS: QUEtiapine Fumarate 400 MG TABLET PO (21:32)
[2024-11-19 21:33] VITALS: BP 109/47
--- NOTE | 2024-11-19 22:35 | PC.NURSE ---
Summary of care: This is a 43yo F PMHx: IVDU, mood d/o, complex regional pain syndrome who presents to the ED concerns of left arm infection. Pt is A&o x4 independent with ADL's at baseline. Patient states she was doing well until a week ago when she relapsed. pt sts she injected cocaine and heroin which she last used 1 day [employer]. Patient reports worsening left forearm redness, swelling and pain. She is able to bend and extend the left elbow. Pt has 20G US guided IV in RFA. Labs were obtained and pt Left arm was imaged showing: Extensive soft tissue edema compatible with cellulitis left forearm extending to the distal arm, with approximately 2 x 5 x 7 cm abscess in the common extensor group. Based on these ct findings of was evaluated by orthopedics in dept. At this time orthopedics reccommeds warm compresses to open area, IV abx, and ROM exercises. Pt receives methadone from [facility]- last dose at [facility] 11/16/24, pt was given take home doses which are stored with pharmacy. Pt rec dose in dept today- dose schedule is 120mg QAM and 110mg QPM, pt also met with addiction medicine while in dept for opiate and cocaine use D/O. Plan is for admission and tx of left arm abcess with IV ABX.
--- NOTE | 2024-11-19 22:56 | PC.NURSE ---
MD Ramirez contacted via [employer] re: Diet orde, per ortho report, no plans for OR tomorrow- requested diet change to reflect this.
--- NOTE | 2024-11-19 23:04 | PC.NURSE ---
re: take home methadone: 1 days supply 1 bottle of 110mg and 1 bottle 120mg methadone sent to pharmacy for storage
--- NOTE | 2024-11-19 23:23 | PC.NURSE ---
Took over care from YVETTE Cedeño pt resting at this time, no sign of distress.
[2024-11-19] MEDS: Enoxaparin Sodium 40 MG/0.4 ML SYRINGE SUBCUT (23:32)
--- NOTE | 2024-11-19 23:41 | PC.NURSE ---
Medicated per mar, pt sleeping at this time.
[2024-11-20] VITALS (7 sets, daily range): BP systolic 88–120; BP diastolic 51–64; PULSE 58–95; RESP 12–14; TEMP 37–37.2; O2SAT 95–98; BMI 25.4
--- NOTE | 2024-11-20 00:10 | MHC.EDTECH ---
This tech took over patient care @ 2300. patient found to be admitted so belongings list was checked. Belongings list found to be completed before 2300 but a blue duffle bag was found not documented on list. After seeing undocumented item, this tech began to document contents of blue duffle bag and found a large chinese army knife and what appeared to be possible paraphernalia in a small ziplock bag. security took knife and locked in safe and and paraphernalia was disposed off by security. autotransfusionist and patient RN aware of findings.
[2024-11-20] MEDS: Piperacillin Sodium/Tazobactam 4.5 GM in 0.9 % Sodium Chloride 100 ML IV ×4 (03:46→21:41)
--- NOTE | 2024-11-20 04:28 | MHC.EDTECH ---
Patient refused to change to hospital attire, wants to wait until she is upstairs in room
[2024-11-20] MEDS: vancomycin HCL 1,000 MG in 0.9 % Sodium Chloride 250 ML 270 MG IV (05:00)
--- NOTE | 2024-11-20 05:13 | PC.NURSE ---
warm compress applied, pt refusing to change into hospital attire.
--- NOTE | 2024-11-20 05:14 | PC.NURSE ---
Iv placed prior to my shift, Iv intact and pt is asymptomatic
[2024-11-20 05:41] LABS: Basophils Absolute Auto 0.1 X10*3/uL (0.0-0.2); Basophils Percent Auto 0.6 % (0-2); Eosinophils Absolute Auto 0.5 X10*3/uL (0.0-0.4); Eosinophils Percent Auto 3.3 % (0-4); Hematocrit 28.6 % (37.0-47.0); Hemoglobin 9.5 g/dl (12.0-16.0); Imm Gran Abs Auto 0.12 X10*3/uL (0.00-0.03); Imm Gran Pct Auto 0.9 % (0.0-0.4); Lymphocytes Absolute Auto 2.8 X10*3/uL (1.2-4.9); Lymphocytes Percent Auto 20.1 % (20-40); MANUAL DIFF FLAG NO; Mean Corpuscular HGB Conc 33.2 g/dl (31.0-35.0); Mean Corpuscular Hemoglobin 29.6 pg (27.0-33.0); Mean Corpuscular Volume 89.1 fL (80.0-98.0); Mean Platelet Volume 9.6 fL (9.4-12.3); Monocytes Absolute Auto 1.1 X10*3/uL (0.1-1.2); Monocytes Percent Auto 7.8 % (2-11); Neutrophils Absolute Auto 9.3 x10*3/uL (2.0-8.3); Neutrophils Percent Auto 67.3 % (45-73); Platelet Count 398 X10*3/uL (160-400); Red Blood Count 3.21 X10*6/uL (4.20-5.50); Red Cell Distribution Width 15.6 % (11.0-16.0); White Blood Count 13.7 X10*3/uL (4.8-10.8)
[2024-11-20 05:58] LABS: Anion Gap 11 (12-20); Blood Urea Nitrogen 5 mg/dL (9-16); Carbon Dioxide 23 mmol/L (22-29); Chloride 107 mmol/L (96-108); Estimated Glomerular Filt Rate > 60; Glucose Random 75 mg/dL (60-115); Sodium 138 mmol/L (135-145)
--- NOTE | 2024-11-20 08:33 | PM.PNORT ---
Subjective Subjective Date of Service: 11/20/24 Interval history: Day 2 observation left forearm abscess She states she continues to have discomfort but tries not to move the arm Denies fever chills Physical Exam Vital Signs: Vital Signs: Last Vital Signs Temp 98.9 F 11/20/24 04:30 Pulse 95 11/20/24 04:30 Resp 14 11/20/24 04:30 BP 95/58 L 11/20/24 04:30 Pulse Ox 96 11/20/24 04:30 O2 Del Method Room Air 11/20/24 04:30 BMI result Body Mass Index 27.4 Const: General: cooperative, healthy appearing, comfortable and no acute distress Extrem: Other: Left forearm redness and swelling distal to the elbow has improved however there seems to be a head to an abscess developing. She continues to have swelling and tension around the portion of the elbow is an area along the lateral epicondyle that appears to be a superficial ulcer. No purulance or drainage. The forearm is firm and tender. She can perform ROm of the elbow. Wrist flexion and extension intact. NVI. Procedures Date of Service Date of Service: 11/20/24 Progress Note: A&P Assessment and plan (1) Abscess: Status: Acute Assessment and Plan: Continue IV antibiotics Continue warm compresses NPO after midnight We will reassess in the morning to see if she needs to go to the OR for I and D with Dr. Wagner Time Spent With Patient Time: Total time managing care of this patient today ____ minutes. Quality Stroke Does the patient have a stroke diagnosis?: No VTE Prior VTE?: No VTE Risk Level:: Medical - moderate - high VTE Device Contraindication: Treatment Not Indicated VTE Drug Contraindication: N/A - Med Ordered
[2024-11-20] MEDS: methADONE HCl 20 MG/2 ML ORAL.CONC 120 MG PO (09:28)
[2024-11-20] MEDS: Potassium Chloride ER 20 MEQ TAB.ER.PRT 40 MEQ PO (09:39)
[2024-11-20] MEDS: 0.9 % Sodium Chloride Flush 3 ML SYRINGE IVFLUSH ×3 (09:40→20:41)
[2024-11-20] MEDS: cloNIDine HCL 0.2 MG TABLET PO (09:42)
[2024-11-20] MEDS: Gabapentin 300 MG CAPSULE 900 MG PO ×3 (09:42→23:48)
[2024-11-20] MEDS: busPIRone HCl 10 MG TABLET PO ×2 (09:42→23:49)
[2024-11-20] MEDS: hydrOXYzine HCL 25 MG TABLET PO ×2 (09:43→23:49)
--- NOTE | 2024-11-20 12:00 | HO.ADDICT_ITS ---
History of Present Illness Date of Service: 11/20/24 Chief Complaint: skin infection Reason for Consult: OUD Sources of Information: patient interviewed and chart reviewed HPI Narrative: Patient is a 43 year old female medically admitted with cellulitis and abcess to left forearm Consult requested as patient reported recent substance use following period in recovery Patient seen in room 4 of [facility]--awaiting transfer to [facility] floor She is awake, alert, pleasant and engaged in interview She reports she had been in recovery and abstaining from all substance use for 10 years, until this weekend when she used for a little over a day. She is a bit tearful and guarded when discussing this, and t/w did not delve any further into precipitant as this time. She is engaged in treatment for OUD with [facility] and methadone dose verified at 120mg in AM and 110mg in evening She did not have an lapse in taking methadone during this time She received evening dose here at [facility] and was preparing to receive AM dose when seen by t/w. \ Review of Systems Constitutional: Reports as per HPI and Reports no additional constitutional complaints Diagnostics Vital Signs (24Hr): Vital Signs - 24 hr 11/19/24 19:31 11/19/24 21:33 11/20/24 04:30 Temperature 98.8 F 98.9 F Pulse Rate 84 95 Respiratory Rate 16 14 Blood Pressure 109/47 L 109/47 L 95/58 L Pulse Oximetry 99 96 Oxygen Delivery Method Room Air Room Air 11/20/24 09:42 Temperature Pulse Rate Respiratory Rate Blood Pressure 95/58 L Pulse Oximetry Oxygen Delivery Method BMI result Body Mass Index 27.4 Labs 11/20/24 05:30 11/20/24 05:30 Labs: Laboratory Results - last 48 hr 11/19/24 11/20/24 03:24 05:30 WBC 18.9 H 13.7 H RBC 3.49 L 3.21 L Hgb 10.5 L 9.5 L Hct 30.5 L 28.6 L MCV 87.4 89.1 MCH 30.1 29.6 MCHC 34.4 33.2 RDW 15.2 15.6 Plt Count 394 398 MPV 9.6 9.6 Immature Gran % (Auto) 0.6 H 0.9 H Neut % (Auto) 85.4 H 67.3 Lymph % (Auto) 6.5 L 20.1 Wolfe % (Auto) 6.8 7.8 Eos % (Auto) 0.5 3.3 Baso % (Auto) 0.2 0.6 Lymph # (Auto) 1.2 2.8 Wolfe # (Auto) 1.3 H 1.1 Eos # (Auto) 0.1 0.5 H Baso # (Auto) 0.0 0.1 Abs Immat Gran (auto) 0.11 H 0.12 H Absolute Neuts (auto) 16.1 H 9.3 H Absolute Nucleated RBC 0.000 0.000 Nucleated RBC % (auto) 0.0 0.0 Sodium 136 138 Potassium 3.4 3.0 L Chloride 103 107 Carbon Dioxide 22 23 Anion Gap 14 11 L BUN 16 5 L Creatinine 0.66 0.57 Estim Creat Clear Calc 99.4 115.0 Estimated GFR > 60 > 60 Random Glucose 112 75 Lactic Acid 0.7 Calcium 8.8 8.0 L D Total Bilirubin 0.3 AST 23 ALT < 6 Alkaline Phosphatase 87 Total Creatine Kinase 27 Total Protein 7.2 Albumin 3.2 L Beta HCG, Quant < 2 Mental Status Exam Mental Status Exam Patient Appearance: Well Grooomed and Appropriate Patient Orientation: Person, Place, Time and Situation Level of Consciousness: Awake, Appropriate and Alert Patient Behavior: Appropriate Mood Description: Constricted Affect Description: Constricted Speech Pattern: Clear Memory Description: Intact Thought Process: Intact Thought Content: positive for Intact Judgement: Good Medications Medications Current Medications Acetaminophen (Acetaminophen 325 Mg Tablet) 650 mg PO Q6H PRN PRN Reason: Pain, Mild 1-3,fever,headache Last Admin: 11/19/24 15:06 Dose: 650 mg Baclofen (Baclofen 10 Mg Tablet) 10 mg PO DAILY PRN PRN Reason: muscle spasm Last Admin: 11/19/24 09:47 Dose: 10 mg Buspirone HCl (Buspirone Hcl 10 Mg Tablet) 10 mg PO BID [facility] Last Admin: 11/20/24 09:42 Dose: 10 mg Calcium Carbonate (Calcium Carbonate 750 Mg Tab.Chew) 750 mg PO Q4H PRN PRN Reason: Heartburn Clonazepam (Clonazepam 1 Mg Tablet) 1 mg PO BID PRN PRN Reason: anxiety/restlessness Clonidine HCl (Clonidine Hcl 0.2 Mg Tablet) 0.2 mg PO BID [facility]; Protocol Last Admin: 11/20/24 09:42 Dose: 0.2 mg Enoxaparin Sodium (Enoxaparin Sodium 40 Mg/0.4 Ml Syringe) 40 mg SUBCUT Q24H [facility] Last Admin: 11/19/24 23:32 Dose: 40 mg Gabapentin (Gabapentin 300 Mg Capsule) 900 mg PO TID [facility] Last Admin: 11/20/24 09:42 Dose: 900 mg Hydroxyzine HCl (Hydroxyzine Hcl 25 Mg Tablet) 25 mg PO BID [facility] Last Admin: 11/20/24 09:43 Dose: 25 mg Piperacillin Sod/Tazobactam (Sod 4.5 gm/ Sodium Chloride) 100 mls @ 200 mls/hr IV Q6H [facility] Last Admin: 11/20/24 09:53 Dose: 200 mls/hr Vancomycin HCl 1,000 mg/ (Sodium Chloride) 270 mls @ 270 mls/hr IV Q12H [facility] Last Infusion: 11/20/24 07:00 Dose: Infused Magnesium Hydroxide (Milk Of Magnesia 30 Ml Oral.Susp) 30 ml PO DAILY PRN PRN Reason: Constipation Melatonin (Melatonin 3 Mg Tablet) 6 mg PO BEDTIME PRN PRN Reason: Insomnia Methadone HCl (Methadone Hcl 20 Mg/2 Ml Oral.Conc) 120 mg PO DAILY@0800 [facility] Last Admin: 11/20/24 09:28 Dose: 120 mg Ondansetron HCl (Ondansetron Hcl 4 Mg/2 Ml Vial) 4 mg IVPUSH Q8H PRN PRN Reason: Nausea and Vomiting Pharmacy Consult (Consult Rx Vancomycin Dosing) 1 each MISCELLANE DAILY PRN PRN Reason: Consult order Quetiapine Fumarate (Quetiapine Fumarate 400 Mg Tablet) 400 mg PO BEDTIME [facility] Last Admin: 11/19/24 21:32 Dose: 400 mg Sodium Chloride (0.9 % Sodium Chloride Flush 3 Ml Syringe) 3 ml IVFLUSH QSHIFT [facility] Last Admin: 11/20/24 09:40 Dose: 3 ml Allergies Allergies Allergy/AdvReac Type Severity Reaction Status Date / Time No Known Allergies Allergy Verified 11/19/24 01:52 Assessment & Plan Assessment & Plan (1) Opioid use disorder, severe, in sustained remission: Status: Acute Code(s): F11.21 - Opioid dependence, in remission Assessment and Plan: * home doses of methadone resumed * will follow up in AM to provide support or referrals if desired by patient Total time managing care of this patient today ___25_ minutes. [facility] Past Medical History Medical History (Updated 11/20/24 @ 17:06 by Evie Ma CNP) CRPS (complex regional pain syndrome type I) Social History Social History Household Members: None Housing: Apartment Do you presently have visiting nurse or other home services: No Patient Tobacco Use Status: Current everyday Tobacco user Tobacco use type: Cigarette Cigarettes Per Day: 3 Substance Use Type: Crack/Cocaine service: No Current occupational status: employed Current occupation: [employer]
--- NOTE | 2024-11-20 12:07 | MHC.CM.PN ---
CM attempted to meet pt, she was sleeping soundly, will return later to complete assessment.
[2024-11-20 12:31] LABS: UPreg QC Valid YES
[2024-11-20 12:33] LABS: Urine Pregnancy NEGATIVE (NEGATIVE)
[2024-11-20 12:40] LABS: Amphetamine Screen Urine Not Detected (Not Detect); Barbiturates, Urine Not Detected (Not Detect); Benzodiazepines Screen Urine Not Detected (Not Detect); Buprenorphine Scr Not Detected (Not Detect); Cannabinoid Screen Urine POSITIVE (Not Detect); Cocaine Screen Urine POSITIVE (Not Detect); Fentanyl, urine POSITIVE (Not Detect); Methadone Screen, Urine Positive (Not Detect); Opiate Screen Urine Not Detected (Not Detect); Oxycodone Screen Urine Not Detected (Not Detect); Phencyclidine Screen Urine Not Detected (Not Detect)
--- NOTE | 2024-11-20 13:04 | P.PNIM_ITS ---
Subjective Subjective Date of Service: 11/20/24 Interval History: Seen and evaluated this morning Swelling and pain little better Culture remains negative after 24 hours no other events Review of Systems Review of Systems: Yes all other systems are reviewed and are negative Physical Exam 2 Vital Signs: Vital Signs: Last Vital Signs Temp 98.8 F 11/20/24 12:23 Pulse 72 11/20/24 12:23 Resp 14 11/20/24 12:23 BP 105/55 L 11/20/24 12:23 Pulse Ox 95 11/20/24 12:23 O2 Del Method Room Air 11/20/24 12:23 BMI result Body Mass Index 25.4 Const: Other: Constitutional : interactive, not in distress Cardiovascular : no JVP, no lower extremity edema Respiratory : bilateral chest movement, not in resp distress Gastrointestinal: soft, lax, Non tender Skin : Warm, Dry, injection mazariegos, Left forearm with swelling, erythema and tenderness Neurological : Alert & oriented , No focal deficit Objective Data Active Medications Acetaminophen (Acetaminophen 325 Mg Tablet) 650 mg PO Q6H PRN PRN Reason: Pain, Mild 1-3,fever,headache Last Admin: 11/19/24 15:06 Dose: 650 mg Documented By: BRAD Baclofen (Baclofen 10 Mg Tablet) 10 mg PO DAILY PRN PRN Reason: muscle spasm Last Admin: 11/19/24 09:47 Dose: 10 mg Documented By: ADRIENNE Buspirone HCl (Buspirone Hcl 10 Mg Tablet) [address] [facility] Last Admin: 11/20/24 09:42 Dose: 10 mg Documented By: SALENA Calcium Carbonate (Calcium Carbonate 750 Mg Tab.Chew) 750 mg PO Q4H PRN PRN Reason: Heartburn Clonazepam (Clonazepam 1 Mg Tablet) 1 mg PO BID PRN PRN Reason: anxiety/restlessness Clonidine HCl (Clonidine Hcl 0.2 Mg Tablet) 0.[address] [facility]; Protocol Last Admin: 11/20/24 09:42 Dose: 0.2 mg Documented By: SALENA Enoxaparin Sodium (Enoxaparin Sodium 40 Mg/0.4 Ml Syringe) [address] [facility] Last Admin: 11/19/24 23:32 Dose: 40 mg Documented By: ALLEN Gabapentin (Gabapentin 300 Mg Capsule) [address] [facility] Last Admin: 11/20/24 09:42 Dose: 900 mg Documented By: SALENA Hydroxyzine HCl (Hydroxyzine Hcl 25 Mg Tablet) [address] [facility] Last Admin: 11/20/24 09:43 Dose: 25 mg Documented By: SALENA Piperacillin Sod/Tazobactam (Sod 4.5 gm/ Sodium Chloride) 100 mls @ 200 mls/hr IV Q6H [facility] Last Infusion: 11/20/24 12:11 Dose: Infused Documented By: MARCELLO Vancomycin HCl 1,000 mg/ (Sodium Chloride) 270 mls @ 270 mls/hr IV Q12H [facility] Last Infusion: 11/20/24 07:00 Dose: Infused Documented By: CARO Magnesium Hydroxide (Milk Of Magnesia 30 Ml Oral.Susp) 30 ml PO DAILY PRN PRN Reason: Constipation Melatonin (Melatonin 3 Mg Tablet) 6 mg PO BEDTIME PRN PRN Reason: Insomnia Methadone HCl (Methadone Hcl 20 Mg/2 Ml Oral.Conc) 120 mg PO DAILY@0800 [facility] Last Admin: 11/20/24 09:28 Dose: 120 mg Documented By: SALENA Co-signed By: CARO Ondansetron HCl (Ondansetron Hcl 4 Mg/2 Ml Vial) 4 mg IVPUSH Q8H PRN PRN Reason: Nausea and Vomiting Pharmacy Consult (Consult Rx Vancomycin Dosing) 1 each MISCELLANE DAILY PRN PRN Reason: Consult order Quetiapine Fumarate (Quetiapine Fumarate 400 Mg Tablet) [address] [facility] Last Admin: 11/19/24 21:32 Dose: 400 mg Documented By: BRAD Sodium Chloride (0.9 % Sodium Chloride Flush 3 Ml Syringe) [address] [facility] Last Admin: 11/20/24 09:40 Dose: 3 ml Documented By: SALENA Labs 11/20/24 05:30 11/20/24 05:30 Labs: Laboratory Results - last 24 hr 11/20/24 11/20/24 05:30 12:15 MCV 89.1 MCH 29.6 MCHC 33.2 RDW 15.6 Plt Count 398 MPV 9.6 Immature Gran % (Auto) 0.9 H Neut % (Auto) 67.3 Lymph % (Auto) 20.1 Phelps % (Auto) 7.8 Eos % (Auto) 3.3 Baso % (Auto) 0.6 Lymph # (Auto) 2.8 Phelps # (Auto) 1.1 Eos # (Auto) 0.5 H Baso # (Auto) 0.1 Abs Immat Gran (auto) 0.12 H Absolute Neuts (auto) 9.3 H Absolute Nucleated RBC 0.000 Nucleated RBC % (auto) 0.0 Anion Gap 11 L Estim Creat Clear Calc 115.0 Estimated GFR > 60 Random Glucose 75 Calcium 8.0 L D Urine Test NEGATIVE Urine Opiates Screen Not Detected Ur Buprenorphine Scrn Not Detected Ur Oxycodone Screen Not Detected Urine Methadone Screen Positive H Urine Fentanyl Screen POSITIVE H Ur Barbiturates Screen Not Detected Ur Phencyclidine Scrn Not Detected Ur Amphetamines Screen Not Detected U Benzodiazepines Scrn Not Detected Urine Cocaine Screen POSITIVE H U Marijuana (THC) Screen POSITIVE H Microbiology Microbiology Results: Microbiology 11/19/24 03:25 Blood Culture - Preliminary Blood - Venous No growth after 24 hours. 11/19/24 03:23 Blood Culture - Preliminary Blood - Venous No growth after 24 hours. Assessment and Plan (1) Abscess: Status: Acute (2) Elevated WBC count: Status: Acute (3) Cellulitis: Status: Acute (4) Sepsis: Status: Acute Plan This is a 43-year-old female with pertinent history of polysubstance IVDU, mood disorder, complex regional pain syndrome who presents to the emergency department concerns of left arm infection. # Sepsis due to left arm cellulitis with abscess Blood cultures -ve in 24 hours, follow IV crystalloids. Continue IV vancomycin and IV Zosyn. Orthopedic team following, NPO after midnight Vancomycin trough # Mood disorder Continue home mood stabilizers # Polysubstance use disorder Monitor for withdrawal. Consulting Addiction Team # Normocytic anemia Monitor and outpatient follow-up DVT prophylaxis on Lovenox , hold until surgical intervention will need hospital stay for IV antibiotics (as above), which is not possible in a lesser acute setting. pending possible surgical intervention Quality Stroke Does the patient have a stroke diagnosis?: No VTE Prior VTE?: No VTE Risk Level:: Medical - moderate - high VTE Device Contraindication: Treatment Not Indicated VTE Drug Contraindication: N/A - Med Ordered
--- NOTE | 2024-11-20 13:45 | MHC.CM.PN ---
Pt is functionally independent, no home health services or DME. PCP is Dr. Gutierrez in [facility]. HCP discussed, pt. will complete form and it will be added to chart. Pt. can arrange a ride home at [place]. DCP: home, self care. CM to follow for DC needs.
[2024-11-20] MEDS: clonazePAM 1 MG TABLET PO ×2 (14:19→23:53)
[2024-11-20] MEDS: Ibuprofen 600 MG TABLET PO (14:52)
[2024-11-20 16:09] LABS: Vancomycin Trough 7.7 mcg/mL (10.0-20.0)
[2024-11-20] MEDS: vancomycin HCL 1,500 MG in 0.9 % Sodium Chloride 500 ML 333.33 MG IV (18:45)
--- NOTE | 2024-11-20 20:05 | PC.NURSE ---
pt drowsy upon attempt to give evening Methadone, pt rousable but falling asleep mid sentence. MD aware and per Dr. Dennis med held to reassess in 4 hours. Oncoming RN aware.
[2024-11-20] MEDS: 0.9 % Sodium Chloride 1,000 ML 999 ML IV (20:41)
--- NOTE | 2024-11-20 22:04 | PC.NURSE ---
Addendum entered by Joelle Brown RN 11/20/24 22:50: repeat B/P one hour after bolus was 96/53 Original Note: 2015 pt's B/P was 88/51. notified 1 liter NS bolus ordered.B/P after bolus was 96/54. notified. no new orders at this time.
[2024-11-20] MEDS: QUEtiapine Fumarate 400 MG TABLET PO (23:48)
[2024-11-21] VITALS (12 sets, daily range): BP systolic 94–127; BP diastolic 44–68; PULSE 53–111; RESP 16–20; TEMP 36–37.3; O2SAT 94–97
[2024-11-21] MEDS: Piperacillin Sodium/Tazobactam 4.5 GM in 0.9 % Sodium Chloride 100 ML IV ×4 (03:50→21:33)
[2024-11-21] MEDS: vancomycin HCL 1,500 MG in 0.9 % Sodium Chloride 500 ML 333.33 MG IV (04:26)
[2024-11-21 07:16] LABS: Anion Gap 10 (12-20); Blood Urea Nitrogen 7 mg/dL (9-16); Calcium 8.1 mg/dL (8.4-10.2); Carbon Dioxide 22 mmol/L (22-29); Chloride 112 mmol/L (96-108); Creatinine Clr Calc Pharmacy 86.6; Estimated Glomerular Filt Rate > 60; Glucose Random 83 mg/dL (60-115); Potassium 3.4 mmol/L (3.3-5.1); Sodium 141 mmol/L (135-145)
[2024-11-21] MEDS: 0.9 % Sodium Chloride Flush 3 ML SYRINGE IVFLUSH ×2 (08:33→21:40)
[2024-11-21] MEDS: methADONE HCl 20 MG/2 ML ORAL.CONC 120 MG PO (08:33)
[2024-11-21] MEDS: cloNIDine HCL 0.2 MG TABLET PO ×2 (08:34→21:46)
[2024-11-21] MEDS: hydrOXYzine HCL 25 MG TABLET PO ×2 (08:35→21:46)
[2024-11-21] MEDS: busPIRone HCl 10 MG TABLET PO ×2 (08:35→21:46)
[2024-11-21] MEDS: Gabapentin 300 MG CAPSULE 900 MG PO ×2 (08:35→21:46)
--- NOTE | 2024-11-21 09:00 | PM.PNORT ---
Subjective Subjective Date of Service: 11/21/24 Interval history: Day 3 observation left forearm abscess She states she continues to have discomfort but tries not to move the arm Denies fever chills Physical Exam Vital Signs: Vital Signs: Last Vital Signs Temp 99.1 F 11/21/24 08:00 Pulse 100 11/21/24 08:00 Resp 16 11/21/24 08:00 BP 123/59 L 11/21/24 08:00 Pulse Ox 94 11/21/24 08:00 O2 Del Method Room Air 11/21/24 08:00 BMI result Body Mass Index 25.4 Const: General: cooperative, healthy appearing, comfortable and no acute distress Extrem: Other: Left forearm redness and swelling distal to the elbow has improved however there seems to be a head to an abscess developing. She continues to have swelling and tension around the portion of the elbow is an area along the lateral epicondyle that appears to be a superficial ulcer. No purulance or drainage. The forearm is firm and tender. She can perform ROm of the elbow. Wrist flexion and extension intact. NVI. Procedures Date of Service Date of Service: 11/21/24 Progress Note: A&P Assessment and plan (1) Abscess: Status: Acute Assessment and Plan: Continue IV antibiotics Continue warm compresses NPO for I&D today wound consult for right arm wound Time Spent With Patient Time: Total time managing care of this patient today ____ minutes. Quality Stroke Does the patient have a stroke diagnosis?: No VTE Prior VTE?: No VTE Risk Level:: Medical - moderate - high VTE Device Contraindication: Treatment Not Indicated VTE Drug Contraindication: N/A - Med Ordered
--- NOTE | 2024-11-21 10:21 | MHC.RECOVRN ---
Met with pt to follow up, provide support, and discuss relapse prevention. Pt laying in bed, eyes closed but wakes to voice. Reports pain in left arm. Pt aware she is scheduled for I&D today. In regard to substance use, pt reports she has had significant periods of recovery. After discharge, pt reports she will return to . Discussed mental health, pt reports taking mental health medication is essential for recovery. Pt reports she currently does not have a provider but present to [facility]. Pt reports counselor, Suzie, at [facility] is supportive and helpful. Pt also plans to reach out to her. Pt reports she has the support of her dad and friend Gil. Discussed safer injection, pt utilizes [facility] however reports she does not like the syringes they currently have. Pt would like a safer injection kit upon discharge from [facility]. Pt denies other questions or concerns for t/w. Discussed with SHARONA Guillen.
--- NOTE | 2024-11-21 12:52 | HO.PM.IMPN ---
Subjective Subjective Date of Service: 11/21/24 Interval History: Seen and evaluated this morning Swelling and pain little better , plan for I&D today Culture remains negative after 48 hours no other events Review of Systems Review of Systems: Yes all other systems are reviewed and are negative Physical Exam Vital Signs: Vital Signs: Last Vital Signs Temp 99.1 F 11/21/24 08:00 Pulse 100 11/21/24 08:00 Resp 16 11/21/24 08:00 BP 123/59 L 11/21/24 08:00 Pulse Ox 94 11/21/24 08:00 O2 Del Method Room Air 11/21/24 08:00 BMI result Body Mass Index 25.4 Const: Other: Constitutional : interactive, not in distress Cardiovascular : no JVP, no lower extremity edema Respiratory : bilateral chest movement, not in resp distress Gastrointestinal: soft, lax, Non tender Skin : Warm, Dry, injection mazariegos, Left forearm with swelling, erythema and tenderness Neurological : Alert & oriented , No focal deficit Objective Data Active Medications Acetaminophen (Acetaminophen 325 Mg Tablet) 650 mg PO Q6H PRN PRN Reason: Pain, Mild 1-3,fever,headache Last Admin: 11/19/24 15:06 Dose: 650 mg Documented By: BRAD Baclofen (Baclofen 10 Mg Tablet) 10 mg PO DAILY PRN PRN Reason: muscle spasm Last Admin: 11/19/24 09:47 Dose: 10 mg Documented By: ADRIENNE Buspirone HCl (Buspirone Hcl 10 Mg Tablet) 10 mg PO BID [facility] Last Admin: 11/21/24 08:35 Dose: 10 mg Documented By: EMELI Calcium Carbonate (Calcium Carbonate 750 Mg Tab.Chew) 750 mg PO Q4H PRN PRN Reason: Heartburn Clonazepam (Clonazepam 1 Mg Tablet) 1 mg PO BID PRN PRN Reason: anxiety/restlessness Last Admin: 11/20/24 23:53 Dose: 1 mg Documented By: SHAUN Clonidine HCl (Clonidine Hcl 0.2 Mg Tablet) 0.2 mg PO BID [facility]; Protocol Last Admin: 11/21/24 08:34 Dose: 0.2 mg Documented By: EMELI Enoxaparin Sodium (Enoxaparin Sodium 40 Mg/0.4 Ml Syringe) 40 mg SUBCUT Q24H [facility] Last Admin: 11/19/24 23:32 Dose: 40 mg Documented By: ALLEN Gabapentin (Gabapentin 300 Mg Capsule) 900 mg PO TID [facility] Last Admin: 11/21/24 08:35 Dose: 900 mg Documented By: EMELI Hydroxyzine HCl (Hydroxyzine Hcl 25 Mg Tablet) 25 mg PO BID [facility] Last Admin: 11/21/24 08:35 Dose: 25 mg Documented By: EMELI Piperacillin Sod/Tazobactam (Sod 4.5 gm/ Sodium Chloride) 100 mls @ 200 mls/hr IV Q6H [facility] Last Infusion: 11/21/24 11:18 Dose: Infused Documented By: EMELI Vancomycin HCl 1,500 mg/ (Sodium Chloride) 500 mls @ 333.333 mls/hr IV Q12H [facility] Last Infusion: 11/21/24 05:58 Dose: Infused Documented By: SHAUN Ibuprofen (Ibuprofen 600 Mg Tablet) 600 mg PO Q8H PRN PRN Reason: Pain, Moderate(Pain Scale 4-6) Last Admin: 11/20/24 14:52 Dose: 600 mg Documented By: MARCELLO Magnesium Hydroxide (Milk Of Magnesia 30 Ml Oral.Susp) 30 ml PO DAILY PRN PRN Reason: Constipation Melatonin (Melatonin 3 Mg Tablet) 6 mg PO BEDTIME PRN PRN Reason: Insomnia Methadone HCl (Methadone Hcl 20 Mg/2 Ml Oral.Conc) 120 mg PO DAILY@0800 [facility] Last Admin: 11/21/24 08:33 Dose: 120 mg Documented By: EMELI Co-signed By: KASSI Methadone HCl (Methadone Hcl 20 Mg/2 Ml Oral.Conc) 110 mg PO DAILY@1700 [facility] Last Admin: 11/20/24 21:52 Dose: Not Given Documented By: SHAUN Non-Admin Reason: not given previous shift pt sleepy Morphine Sulfate (Morphine Sulfate 4 Mg/Ml Cartridge) 2 mg IVPUSH Q4H PRN; Protocol PRN Reason: Pain, Severe (Pain Scale 7-10) Ondansetron HCl (Ondansetron Hcl 4 Mg/2 Ml Vial) 4 mg IVPUSH Q8H PRN PRN Reason: Nausea and Vomiting Pharmacy Consult (Consult Rx Vancomycin Dosing) 1 each MISCELLANE DAILY PRN PRN Reason: Consult order Quetiapine Fumarate (Quetiapine Fumarate 400 Mg Tablet) 400 mg PO BEDTIME [facility] Last Admin: 11/20/24 23:48 Dose: 400 mg Documented By: SHAUN Sodium Chloride (0.9 % Sodium Chloride Flush 3 Ml Syringe) 3 ml IVFLUSH QSHIFT [facility] Last Admin: 11/21/24 08:33 Dose: 3 ml Documented By: EMELI Labs 11/20/24 05:30 11/21/24 06:38 Labs: Laboratory Results - last 24 hr 11/20/24 11/21/24 15:17 06:38 Hold Purple Top SEE NOTE Anion Gap 10 L Estim Creat Clear Calc 86.6 Estimated GFR > 60 Random Glucose 83 Calcium 8.1 L Vancomycin Trough 7.7 L Microbiology Microbiology Results: Microbiology 11/19/24 03:25 Blood Culture - Preliminary Blood - Venous No growth after 48 hours. 11/19/24 03:23 Blood Culture - Preliminary Blood - Venous No growth after 48 hours. Assessment and Plan (1) Opioid use disorder, severe, in sustained remission: Status: Acute (2) Sepsis: Status: Acute (3) Abscess: Status: Acute (4) Elevated WBC count: Status: Acute (5) Cellulitis: Status: Acute Plan This is a 43-year-old female with pertinent history of polysubstance IVDU, mood disorder, complex regional pain syndrome who presents to the emergency department concerns of left arm infection. # Sepsis due to left arm cellulitis with abscess Blood cultures -ve in 48 hours, follow dc IVF Continue IV vancomycin and IV Zosyn. Orthopedic team following, I&D today Vancomycin trough # Mood disorder Continue home mood stabilizers # Polysubstance use disorder Monitor for withdrawal. Consulting Addiction Team # Normocytic anemia Monitor and outpatient follow-up DVT prophylaxis on Lovenox , hold until surgical intervention will need hospital stay for IV antibiotics (as above), which is not possible in a lesser acute setting. pending surgical intervention Quality Stroke Does the patient have a stroke diagnosis?: No VTE Prior VTE?: No VTE Risk Level:: Medical - moderate - high VTE Device Contraindication: Treatment Not Indicated VTE Drug Contraindication: N/A - Med Ordered
--- NOTE | 2024-11-21 14:10 | P.CONAN_ITS ---
HPI - Anesthesia Eval Consult details Narrative: abscess debridement PMFSH Active Problems Active Problems: All Active Problems Opioid use disorder, severe, in sustained remission (Acute) Sepsis (Acute) Abscess (Acute) Elevated WBC count (Acute) Cellulitis (Acute) Closed fracture of ankle with delayed healing (Acute) Fracture of distal end of left fibula with routine healing (Acute) Closed fracture of left distal fibula (Acute) Past Medical History Medical History CRPS (complex regional pain syndrome type I) Family History Family history of problems with anesthesia: No Surgical History History of Problems with Anesthesia: No Social History Social History Household Members: None Housing: Apartment Do you presently have visiting nurse or other home services: No Patient Tobacco Use Status: Current everyday Tobacco user Tobacco use type: Cigarette Cigarettes Per Day: 5 Substance Use Type: Crack/Cocaine service: No Current occupational status: employed Current occupation: [employer] Allergies Allergy/AdvReac Type Severity Reaction Status Date / Time No Known Allergies Allergy Verified 11/19/24 01:52 Active Medications: Current Medications Acetaminophen (Acetaminophen 325 Mg Tablet) 650 mg PO Q6H PRN PRN Reason: Pain, Mild 1-3,fever,headache Last Admin: 11/19/24 15:06 Dose: 650 mg Baclofen (Baclofen 10 Mg Tablet) 10 mg PO DAILY PRN PRN Reason: muscle spasm Last Admin: 11/19/24 09:47 Dose: 10 mg Buspirone HCl (Buspirone Hcl 10 Mg Tablet) 10 mg PO BID [facility] Last Admin: 11/21/24 08:35 Dose: 10 mg Calcium Carbonate (Calcium Carbonate 750 Mg Tab.Chew) 750 mg PO Q4H PRN PRN Reason: Heartburn Clonazepam (Clonazepam 1 Mg Tablet) 1 mg PO BID PRN PRN Reason: anxiety/restlessness Last Admin: 11/20/24 23:53 Dose: 1 mg Clonidine HCl (Clonidine Hcl 0.2 Mg Tablet) 0.2 mg PO BID [facility]; Protocol Last Admin: 11/21/24 08:34 Dose: 0.2 mg Enoxaparin Sodium (Enoxaparin Sodium 40 Mg/0.4 Ml Syringe) 40 mg SUBCUT Q24H [facility] Last Admin: 11/19/24 23:32 Dose: 40 mg Gabapentin (Gabapentin 300 Mg Capsule) 900 mg PO TID [facility] Last Admin: 11/21/24 08:35 Dose: 900 mg Hydroxyzine HCl (Hydroxyzine Hcl 25 Mg Tablet) 25 mg PO BID [facility] Last Admin: 11/21/24 08:35 Dose: 25 mg Piperacillin Sod/Tazobactam (Sod 4.5 gm/ Sodium Chloride) 100 mls @ 200 mls/hr IV Q6H [facility] Last Infusion: 11/21/24 11:18 Dose: Infused Vancomycin HCl 1,500 mg/ (Sodium Chloride) 500 mls @ 333.333 mls/hr IV Q12H [facility] Last Infusion: 11/21/24 05:58 Dose: Infused Cefazolin Sodium/Dextrose (Ancef) 2 gm in 50 mls @ 100 mls/hr IV PREOP ONE Stop: 11/21/24 14:35 Ibuprofen (Ibuprofen 600 Mg Tablet) 600 mg PO Q8H PRN PRN Reason: Pain, Moderate(Pain Scale 4-6) Last Admin: 11/20/24 14:52 Dose: 600 mg Magnesium Hydroxide (Milk Of Magnesia 30 Ml Oral.Susp) 30 ml PO DAILY PRN PRN Reason: Constipation Melatonin (Melatonin 3 Mg Tablet) 6 mg PO BEDTIME PRN PRN Reason: Insomnia Methadone HCl (Methadone Hcl 20 Mg/2 Ml Oral.Conc) 120 mg PO DAILY@0800 [facility] Last Admin: 11/21/24 08:33 Dose: 120 mg Methadone HCl (Methadone Hcl 20 Mg/2 Ml Oral.Conc) 110 mg PO DAILY@1700 [facility] Last Admin: 11/20/24 21:52 Dose: Not Given Morphine Sulfate (Morphine Sulfate 4 Mg/Ml Cartridge) 2 mg IVPUSH Q4H PRN; Protocol PRN Reason: Pain, Severe (Pain Scale 7-10) Ondansetron HCl (Ondansetron Hcl 4 Mg/2 Ml Vial) 4 mg IVPUSH Q8H PRN PRN Reason: Nausea and Vomiting Pharmacy Consult (Consult Rx Vancomycin Dosing) 1 each MISCELLANE DAILY PRN PRN Reason: Consult order Quetiapine Fumarate (Quetiapine Fumarate 400 Mg Tablet) 400 mg PO BEDTIME [facility] Last Admin: 11/20/24 23:48 Dose: 400 mg Sodium Chloride (0.9 % Sodium Chloride Flush 3 Ml Syringe) 3 ml IVFLUSH QSHIFT [facility] Last Admin: 11/21/24 08:33 Dose: 3 ml Home Medications ?Medication ?Instructions ?Recorded ?Confirmed ?Last Taken ?Type baclofen 10 mg tablet 10 mg PO DAILY PRN muscle spasm 12/03/21 11/19/24 Unknown History buspirone 10 mg tablet 10 mg PO BID 11/19/24 11/19/24 11/18/24 History gabapentin 300 mg capsule 900 mg PO TID 11/19/24 11/19/24 11/18/24 History hydroxyzine pamoate 25 mg capsule 25 mg PO BID 11/19/24 11/19/24 11/18/24 History methadone 10 mg/mL oral concentrate 110 mg PO BEDTIME 11/19/24 11/19/24 Unknown History methadone 10 mg/mL oral concentrate 120 mg PO DAILY 11/19/24 11/19/24 Unknown History naproxen sodium 220 mg tablet 220 mg PO BID PRN migraines 11/19/24 11/19/24 Unknown History (Aleve) Exam Height,Weight and Vital Signs: Height 5 ft 2 in Weight 63 kg Last Vital Signs Temp 98.4 F 11/21/24 13:43 Pulse 84 11/21/24 13:43 Resp 16 11/21/24 13:43 BP 107/49 L 11/21/24 13:43 Pulse Ox 94 11/21/24 13:43 O2 Del Method Room Air 11/21/24 13:43 Pertinent Lab Results Pertinent Lab Results: Laboratory Tests 11/19/24 11/20/24 11/20/24 03:24 05:30 12:15 WBC 18.9 H 13.7 H RBC 3.49 L 3.21 L Hgb 10.5 L 9.5 L Hct 30.5 L 28.6 L MCV 87.4 89.1 MCH 30.1 29.6 MCHC 34.4 33.2 RDW 15.2 15.6 Plt Count 394 398 MPV 9.6 9.6 Immature Gran % (Auto) 0.6 H 0.9 H Neut % (Auto) 85.4 H 67.3 Lymph % (Auto) 6.5 L 20.1 Clark % (Auto) 6.8 7.8 Eos % (Auto) 0.5 3.3 Baso % (Auto) 0.2 0.6 Lymph # (Auto) 1.2 2.8 Clark # (Auto) 1.3 H 1.1 Eos # (Auto) 0.1 0.5 H Baso # (Auto) 0.0 0.1 Abs Immat Gran (auto) 0.11 H 0.12 H Absolute Neuts (auto) 16.1 H 9.3 H Absolute Nucleated RBC 0.000 0.000 Nucleated RBC % (auto) 0.0 0.0 Hold Purple Top Sodium 136 138 Potassium 3.4 3.0 L Chloride 103 107 Carbon Dioxide 22 23 Anion Gap 14 11 L BUN 16 5 L Creatinine 0.66 0.57 Estim Creat Clear Calc 99.4 115.0 Estimated GFR > 60 > 60 Random Glucose 112 75 Lactic Acid 0.7 Calcium 8.8 8.0 L D Total Bilirubin 0.3 AST 23 ALT < 6 Alkaline Phosphatase 87 Total Creatine Kinase 27 Total Protein 7.2 Albumin 3.2 L Beta HCG, Quant < 2 Urine Test NEGATIVE Vancomycin Trough Urine Opiates Screen Not Detected Ur Buprenorphine Scrn Not Detected Ur Oxycodone Screen Not Detected Urine Methadone Screen Positive H Urine Fentanyl Screen POSITIVE H Ur Barbiturates Screen Not Detected Ur Phencyclidine Scrn Not Detected Ur Amphetamines Screen Not Detected U Benzodiazepines Scrn Not Detected Urine Cocaine Screen POSITIVE H U Marijuana (THC) Screen POSITIVE H 11/20/24 11/21/24 15:17 06:38 WBC RBC Hgb Hct MCV MCH MCHC RDW Plt Count MPV Immature Gran % (Auto) Neut % (Auto) Lymph % (Auto) Clark % (Auto) Eos % (Auto) Baso % (Auto) Lymph # (Auto) Clark # (Auto) Eos # (Auto) Baso # (Auto) Abs Immat Gran (auto) Absolute Neuts (auto) Absolute Nucleated RBC Nucleated RBC % (auto) Hold Purple Top SEE NOTE Sodium 141 Potassium 3.4 Chloride 112 H Carbon Dioxide 22 Anion Gap 10 L BUN 7 L Creatinine 0.73 Estim Creat Clear Calc 86.6 Estimated GFR > 60 Random Glucose 83 Lactic Acid Calcium 8.1 L Total Bilirubin AST ALT Alkaline Phosphatase Total Creatine Kinase Total Protein Albumin Beta HCG, Quant Urine Test Vancomycin Trough 7.7 L Urine Opiates Screen Ur Buprenorphine Scrn Ur Oxycodone Screen Urine Methadone Screen Urine Fentanyl Screen Ur Barbiturates Screen Ur Phencyclidine Scrn Ur Amphetamines Screen U Benzodiazepines Scrn Urine Cocaine Screen U Marijuana (THC) Screen Airway Mallampati Class: II TM Dist: >3cm Neck ROM: Full Heart: rrr Lungs: cta Assessment and Plan Assessment Anesthesia Assessment: Anesthesia Plan Discussed Final Anesthetic Review Family History of Problems with Anesthesia: No History of Problems with Anesthesia: No NPO: Yes ASA Class: III Final Preanesthetic Review: No Changes in Pt Med Stat, Meds/Allgs Chart Reviewed, Consent Obtained/Reviewed and Anes Risks/Benef Reviewed Patient Risk: Intermediate Procedure Risk: Low Anesthetic Plan Anesthetic Plan: GA Disposition: Standard PACU
--- NOTE | 2024-11-21 14:59 | P.BOP_ITS ---
Brief Operative Note Date of Service: 11/21/24 Pre-op diagnosis: Left forearm abscess Post-op diagnosis: same Procedure: Incision and drainage of left forearm abscess Implants: none Surgeon: Gerhard Wagner MD Anesthesia: GLMA Was an Parts Sales Manager used for this Procedure?: No Estimated blood loss (mL): 10 Pathology: other (Aerobic and anaerobic culture) Condition: stable Disposition: PACU
--- NOTE | 2024-11-21 15:02 | W.PM.OPN ---
Operative Note Operative Note Date of Service: 11/21/24 Narrative: After the patient was identified as Lavonne Barger and her left forearm was initialed by myself she was brought to the operating room where general anesthesia was induced by the anesthesiologist in routine fashion. The patient would be given 2 g of IV Ancef once intraoperative wound cultures were taken. The patient's left upper extremity was prepped and draped in sterile fashion. A formal time-out was completed. A 15. Scalpel blade was used to make a longitudinal incision centered over the redness on her left forearm measuring approximately 5 cm in length. Upon entry into the subcutaneous tissue there was an abundant amount of purulent fluid. Wound cultures were taken. All of the purulent fluid was removed. The wound was irrigated with copious amounts of normal saline solution via bulb syringe. There was no necrotic muscle or subcutaneous tissue. All of the subcutaneous tissue and extensor musculature was pink with good blood flow. The wound was once again irrigated. Any significant bleeding vessels were coagulated. The skin incision was closed with 2-0 nylon simple and vertical mattress interrupted sutures. Dry sterile dressing was placed over the incision. The patient was awoken and extubated in the operating room. She was transferred to the recovery room in stable condition.
[2024-11-21] MEDS: Acetaminophen 1,000 MG/100 ML PIGGYBACK 400 MG IV (15:20)
[2024-11-21 17:11] LABS: Vancomycin Random 17.4 mcg/mL (15-20)
--- NOTE | 2024-11-21 17:21 | HE.PHANOTE ---
RE: VANCO DOSING Trough came back as 17.4 mg/L which is supratherapeutic for skin infection. Dose is decreased to 1000 mg q12h, next trough is scheduled for 11/22/24 @1600.
[2024-11-21] MEDS: methADONE HCl 20 MG/2 ML ORAL.CONC 110 MG PO (18:10)
[2024-11-21] MEDS: vancomycin HCL 1,000 MG in 0.9 % Sodium Chloride 250 ML 250 MG IV (18:11)
[2024-11-21] MEDS: clonazePAM 1 MG TABLET PO (18:18)
[2024-11-21] MEDS: QUEtiapine Fumarate 400 MG TABLET PO (21:46)
[2024-11-21] MEDS: Enoxaparin Sodium 40 MG/0.4 ML SYRINGE SUBCUT (22:12)
--- NOTE | 2024-11-21 22:24 | PC.NURSE ---
late entry: RE APAP Pt complains of 4/10 pain--per DEC only analgesia ordered is APAP at time.. Administered per DEC provider notified. Awaiting orders for further pain management
[2024-11-22] MEDS: Piperacillin Sodium/Tazobactam 4.5 GM in 0.9 % Sodium Chloride 100 ML IV ×4 (03:44→21:10)
[2024-11-22] MEDS: vancomycin HCL 1,000 MG in 0.9 % Sodium Chloride 250 ML 270 MG IV ×2 (05:58→18:33)
[2024-11-22 07:00] LABS: Anion Gap 12 (12-20); Blood Urea Nitrogen 9 mg/dL (9-16); Calcium 8.6 mg/dL (8.4-10.2); Carbon Dioxide 23 mmol/L (22-29); Chloride 109 mmol/L (96-108); Creatinine Clr Calc Pharmacy 84.3; Estimated Glomerular Filt Rate > 60; Glucose Random 156 mg/dL (60-115); Potassium 3.8 mmol/L (3.3-5.1); Sodium 140 mmol/L (135-145)
[2024-11-22 08:00] VITALS: BP 132/63; PULSE 45; RESP 16; TEMP 36.3; O2SAT 98
--- NOTE | 2024-11-22 08:46 | HO.POSTANES ---
Post Anesthesia Evaluation Post Anesthesia Evaluation Date of Service: 11/22/24 Vital Signs: Vital Signs Temp Pulse Resp BP Pulse Ox O2 Del Method 11/22/24 08:00 97.3 F 45 L 16 132/63 98 Room Air 11/21/24 23:42 96.8 F 53 16 127/68 96 Room Air 11/21/24 21:46 118/56 L Anesthesia: General LMA Mental Status: Awake Pain Control: Satisfactory Nausea/Vomiting: None Hydration: Adequate Anesthesia-Related Issues: No Anes. Related Issues
[2024-11-22] MEDS: 0.9 % Sodium Chloride Flush 3 ML SYRINGE IVFLUSH ×3 (08:55→21:13)
[2024-11-22] MEDS: busPIRone HCl 10 MG TABLET PO ×2 (08:56→21:13)
[2024-11-22] MEDS: hydrOXYzine HCL 25 MG TABLET PO ×2 (08:56→21:13)
[2024-11-22] MEDS: Gabapentin 300 MG CAPSULE 900 MG PO ×3 (08:56→21:12)
[2024-11-22] MEDS: cloNIDine HCL 0.2 MG TABLET PO ×2 (08:58→21:12)
[2024-11-22] MEDS: methADONE HCl 20 MG/2 ML ORAL.CONC 120 MG PO (08:58)
--- NOTE | 2024-11-22 10:30 | PM.PNORT ---
Subjective Subjective Date of Service: 11/22/24 Interval history: Postop day 1 status post I and D of left forearm abscess Patient resting comfortably in bed this morning Pain well managed Reports significant improvement from prior to surgery No acute events overnight No acute complaints or concerns at this time Physical Exam Vital Signs: Vital Signs: Last Vital Signs Temp 97.3 F 11/22/24 08:00 Pulse 45 L 11/22/24 08:00 Resp 16 11/22/24 08:00 BP 132/63 11/22/24 08:00 Pulse Ox 98 11/22/24 08:00 O2 Del Method Room Air 11/22/24 08:00 BMI result Body Mass Index 25.4 Extrem: Other: Patient is alert, oriented, and in no acute distress. Neuro: Normal sensation of the tips of all digits of the left hand at this time Vascular: Cap refill brisk Pain: Mild tenderness to palpation about the left forearm, improved from prior to surgery Range of motion of the left hand and forearm slightly painful, much less so than prior to surgery per the patient ROM: Patient is able to flex and extend all digits of the left hand fully and without difficulty Skin: Well-approximated incision site noted on the dorsal aspect of the patient's left forearm No active discharge at this time Sutures in place General: There is some erythema noted on the left forearm, improved from previous evaluation Edema has improved significantly since prior to surgery Psych: Appears grossly normal Affect normal Attitude cooperative Procedures Date of Service Date of Service: 11/22/24 Progress Note: A&P Assessment and plan (1) Abscess: Status: Acute Plan 1. Postop day 1 status post left forearm I&D with Dr. Bernard MCKEON 11/21/2024 Continue pain management Continue with IV antibiotics If cleared from Medicine perspective, can trial p.o. antibiotics for potential discharge Dressing change this morning Dressing should remain clean dry and intact until follow-up in our office Dressing changes as needed in the hospital for saturation Continue with all other recommendations per Medicine Time Spent With Patient Time: Total time managing care of this patient today ____ minutes. Quality Stroke Does the patient have a stroke diagnosis?: No VTE Prior VTE?: No VTE Risk Level:: Medical - moderate - high VTE Device Contraindication: Treatment Not Indicated VTE Drug Contraindication: N/A - Med Ordered
[2024-11-22] MEDS: clonazePAM 1 MG TABLET PO (10:31)
--- NOTE | 2024-11-22 10:38 | MHC.CM.PN ---
PER MD ROUNDS, PT WILL LIKELY DC OVER THE WEEKEND DCP: HOME WITH RESUMPTION OF [facility] REFERRAL FAXED PT TO [facility]
--- NOTE | 2024-11-22 10:43 | MHC.CM.PN ---
PER MD ROUNDS, PT WILL LIKELY DC OVER THE WEEKEND DCP: HOME WITH RESUMPTION OF [facility] PT TO [facility]
--- NOTE | 2024-11-22 10:50 | HO.WOUND ---
Wound Consult: Initial 73yr old?[place] [facility] - See progress notes and H&P for detailed history.? Wound consult placed for Right Upper Arm old injection site.? Patient agreeable to assessment and photo documentation.? Patient reports she has had the wound for sometime secondary to an injection site. She reports the wound had a scab that recently was removed. Etiology: Ulceration secondary to injection site ??Present on Admission Measurements: 1cm x 1.8cm x 0.3cm Wound Bed: full thickness tissue loss pale yellow slough noted with pale pink wound bed Drainage / Odor: scant serous drainage noted - dried scab noted to wound edge Edges: ? well defined - epibole Yris wound: intact ? No Induration, Fluctuance or Warmth noted Pain: tenderness reported Goals of Treatment: ? Durafiber AG Discussed safe needle injections practices. Patient is aware of [employer] [facility] and discussed benefits of mobile wound van. Recommendations: 1. Right Upper Arm - Cleanse with NS moist gauze, pat dry. Apply durafiber Ag to wound bed cover with dry gauze or dressing. Change every other day. May shower recommend patient use antibacterial soap such as dial when discharged to eliminate skins microbial burden. Re-consult wound care Nurse for wound deterioration or wound changes.
[2024-11-22] MEDS: Ibuprofen 600 MG TABLET PO (14:48)
--- NOTE | 2024-11-22 14:48 | HO.PM.IMPN ---
Subjective Subjective Date of Service: 11/22/24 Interval History: Seen and evaluated this morning POD1 post I&D feels better Culture remains negative after 48 hours no other events Review of Systems Review of Systems: Yes all other systems are reviewed and are negative Physical Exam Vital Signs: Vital Signs: Last Vital Signs Temp 97.3 F 11/22/24 08:00 Pulse 45 L 11/22/24 08:00 Resp 16 11/22/24 08:00 BP 132/63 11/22/24 08:00 Pulse Ox 98 11/22/24 08:00 O2 Del Method Room Air 11/22/24 08:00 BMI result Body Mass Index 25.4 Const: Other: Constitutional : interactive, not in distress Cardiovascular : no JVP, no lower extremity edema Respiratory : bilateral chest movement, not in resp distress Gastrointestinal: soft, lax, Non tender Skin : Warm, Dry, injection mazariegos, Left forearm less swelling, erythema and tenderness and covered with dressing Neurological : Alert & oriented , No focal deficit Objective Data Active Medications Acetaminophen (Acetaminophen 325 Mg Tablet) 650 mg PO Q6H PRN PRN Reason: Pain, Mild 1-3,fever,headache Last Admin: 11/19/24 15:06 Dose: 650 mg Documented By: BRAD Baclofen (Baclofen 10 Mg Tablet) 10 mg PO DAILY PRN PRN Reason: muscle spasm Last Admin: 11/19/24 09:47 Dose: 10 mg Documented By: ADRIENNE Buspirone HCl (Buspirone Hcl 10 Mg Tablet) 10 mg PO BID [facility] Last Admin: 11/22/24 08:56 Dose: 10 mg Documented By: EMELI Calcium Carbonate (Calcium Carbonate 750 Mg Tab.Chew) 750 mg PO Q4H PRN PRN Reason: Heartburn Clonazepam (Clonazepam 1 Mg Tablet) 1 mg PO BID PRN PRN Reason: anxiety/restlessness Last Admin: 11/22/24 10:31 Dose: 1 mg Documented By: EMELI Clonidine HCl (Clonidine Hcl 0.2 Mg Tablet) 0.2 mg PO BID [facility]; Protocol Last Admin: 11/22/24 08:58 Dose: 0.2 mg Documented By: EMELI Enoxaparin Sodium (Enoxaparin Sodium 40 Mg/0.4 Ml Syringe) 40 mg SUBCUT Q24H [facility] Last Admin: 11/21/24 22:12 Dose: 40 mg Documented By: SHAUN Gabapentin (Gabapentin 300 Mg Capsule) 900 mg PO TID [facility] Last Admin: 11/22/24 08:56 Dose: 900 mg Documented By: EMELI Hydroxyzine HCl (Hydroxyzine Hcl 25 Mg Tablet) 25 mg PO BID [facility] Last Admin: 11/22/24 08:56 Dose: 25 mg Documented By: EMELI Piperacillin Sod/Tazobactam (Sod 4.5 gm/ Sodium Chloride) 100 mls @ 200 mls/hr IV Q6H [facility] Last Infusion: 11/22/24 11:26 Dose: Infused Documented By: EMELI Vancomycin HCl 1,000 mg/ (Sodium Chloride) 270 mls @ 270 mls/hr IV Q12H [facility] Last Infusion: 11/22/24 07:01 Dose: Infused Documented By: SHAUN Ibuprofen (Ibuprofen 600 Mg Tablet) 600 mg PO Q8H PRN PRN Reason: Pain, Moderate(Pain Scale 4-6) Last Admin: 11/20/24 14:52 Dose: 600 mg Documented By: MARCELLO Magnesium Hydroxide (Milk Of Magnesia 30 Ml Oral.Susp) 30 ml PO DAILY PRN PRN Reason: Constipation Melatonin (Melatonin 3 Mg Tablet) 6 mg PO BEDTIME PRN PRN Reason: Insomnia Methadone HCl (Methadone Hcl 20 Mg/2 Ml Oral.Conc) 120 mg PO DAILY@0800 [facility] Last Admin: 11/22/24 08:58 Dose: 120 mg Documented By: EMLEI Co-signed By: LENA Methadone HCl (Methadone Hcl 20 Mg/2 Ml Oral.Conc) 110 mg PO DAILY@1700 [facility] Last Admin: 11/21/24 18:10 Dose: 110 mg Documented By: RADHA Co-signed By: JHONY Morphine Sulfate (Morphine Sulfate 4 Mg/Ml Cartridge) 2 mg IVPUSH Q4H PRN; Protocol PRN Reason: Pain, Severe (Pain Scale 7-10) Ondansetron HCl (Ondansetron Hcl 4 Mg/2 Ml Vial) 4 mg IVPUSH Q8H PRN PRN Reason: Nausea and Vomiting Pharmacy Consult (Consult Rx Vancomycin Dosing) 1 each MISCELLANE DAILY PRN PRN Reason: Consult order Quetiapine Fumarate (Quetiapine Fumarate 400 Mg Tablet) 400 mg PO BEDTIME [facility] Last Admin: 11/21/24 21:46 Dose: 400 mg Documented By: SHAUN Sodium Chloride (0.9 % Sodium Chloride Flush 3 Ml Syringe) 3 ml IVFLUSH QSHIFT [facility] Last Admin: 11/22/24 08:55 Dose: 3 ml Documented By: EMELI Labs 11/20/24 05:30 11/22/24 05:53 Labs: Laboratory Results - last 24 hr 11/21/24 11/22/24 11/22/24 16:47 05:53 05:53 Anion Gap 12 Estim Creat Clear Calc Cancelled 84.3 Estimated GFR Cancelled Random Glucose Calcium Random Vancomycin 17.4 11/22/24 05:53 Anion Gap Estim Creat Clear Calc Estimated GFR > 60 Random Glucose 156 H Calcium 8.6 D Random Vancomycin Microbiology Microbiology Results: Microbiology 11/19/24 03:23 Blood Culture - Preliminary Blood - Venous No growth after 48 hours. 11/21/24 14:38 Gram Stain - Final Arm Left Routine Culture - Preliminary No growth to date. Assessment and Plan (1) Opioid use disorder, severe, in sustained remission: Status: Acute (2) Sepsis: Status: Acute (3) Abscess: Status: Acute Plan This is a 43-year-old female with pertinent history of polysubstance IVDU, mood disorder, complex regional pain syndrome who presents to the emergency department concerns of left arm infection. # Sepsis due to left arm cellulitis with abscess Blood cultures negative dc IVF Continue IV vancomycin and IV Zosyn. Orthopedic team following, I&D POD 1, pending wound culture Vancomycin trough wound care consult for RUE wound # Mood disorder Continue home mood stabilizers # Polysubstance use disorder Monitor for withdrawal. Consulting Addiction Team # Normocytic anemia Monitor and outpatient follow-up DVT prophylaxis on Lovenox , hold until surgical intervention will need hospital stay for IV antibiotics (as above), which is not possible in a lesser acute setting. Quality Stroke Does the patient have a stroke diagnosis?: No VTE Prior VTE?: No VTE Risk Level:: Medical - moderate - high VTE Device Contraindication: Treatment Not Indicated VTE Drug Contraindication: N/A - Med Ordered
[2024-11-22 15:37] VITALS: BP 121/59; PULSE 54; RESP 18; TEMP 36.1; O2SAT 98
[2024-11-22] MEDS: methADONE HCl 20 MG/2 ML ORAL.CONC 110 MG PO (16:30)
[2024-11-22 17:39] LABS: Vancomycin Random 17.4 mcg/mL (15-20)
[2024-11-22] MEDS: QUEtiapine Fumarate 400 MG TABLET PO (21:12)
[2024-11-22] MEDS: Enoxaparin Sodium 40 MG/0.4 ML SYRINGE SUBCUT (23:18)
[2024-11-23] VITALS: BP 116/57; PULSE 52; RESP 16; TEMP 36; O2SAT 97
[2024-11-23] MEDS: Piperacillin Sodium/Tazobactam 4.5 GM in 0.9 % Sodium Chloride 100 ML IV ×2 (03:48→10:51)
[2024-11-23] MEDS: vancomycin HCL 1,000 MG in 0.9 % Sodium Chloride 250 ML 270 MG IV (05:15)
[2024-11-23 07:01] LABS: Creatinine Clr Calc Pharmacy 86.6; Estimated Glomerular Filt Rate > 60
[2024-11-23 07:44] VITALS: BP 131/61; PULSE 58; RESP 16; TEMP 36.3; O2SAT 97
[2024-11-23] MEDS: busPIRone HCl 10 MG TABLET PO (08:04)
[2024-11-23] MEDS: cloNIDine HCL 0.2 MG TABLET PO (08:04)
[2024-11-23] MEDS: Gabapentin 300 MG CAPSULE 900 MG PO (08:04)
[2024-11-23] MEDS: hydrOXYzine HCL 25 MG TABLET PO (08:04)
[2024-11-23] MEDS: methADONE HCl 20 MG/2 ML ORAL.CONC 120 MG PO (08:04)
[2024-11-23] MEDS: 0.9 % Sodium Chloride Flush 3 ML SYRINGE IVFLUSH (08:08)
--- NOTE | 2024-11-23 10:40 | PM.PNORT ---
Subjective Subjective Date of Service: 11/23/24 Interval history: Postop day 2 status post I and D of left forearm abscess Patient resting comfortably in bed this morning Pain well managed Reports significant improvement from prior to surgery No acute events overnight No acute complaints or concerns at this time Physical Exam Vital Signs: Vital Signs: Last Vital Signs Temp 97.4 F 11/23/24 07:44 Pulse 58 11/23/24 07:44 Resp 16 11/23/24 07:44 BP 131/61 11/23/24 07:44 Pulse Ox 97 11/23/24 07:44 O2 Del Method Room Air 11/23/24 07:44 BMI result Body Mass Index 25.4 Extrem: Other: Patient is alert, oriented, and in no acute distress. Neuro: Normal sensation of the tips of all digits of the left hand at this time Vascular: Cap refill brisk Pain: Mild tenderness to palpation about the left forearm, improved from prior to surgery Range of motion of the left hand and forearm slightly painful, much less so than prior to surgery per the patient ROM: Patient is able to flex and extend all digits of the left hand fully and without difficulty General: Dressing on patient's left Arm clean, dry, intact Psych: Appears grossly normal Affect normal Attitude cooperative Procedures Date of Service Date of Service: 11/23/24 Progress Note: A&P Assessment and plan (1) Abscess: Status: Acute Plan 1. Postop day 1 status post left forearm I&D with Dr. Bernard MCKEON 11/21/2024 Continue pain management Continue with IV antibiotics If cleared from Medicine perspective, can trial p.o. antibiotics for potential discharge Dressing should remain clean dry and intact until follow-up in our office Dressing changes as needed in the hospital for saturation Continue with all other recommendations per Medicine Time Spent With Patient Time: Total time managing care of this patient today ____ minutes. Quality Stroke Does the patient have a stroke diagnosis?: No VTE Prior VTE?: No VTE Risk Level:: Medical - moderate - high VTE Device Contraindication: Treatment Not Indicated VTE Drug Contraindication: N/A - Med Ordered
--- NOTE | 2024-11-23 11:38 | PM.DS ---
DS: Providers Provider Date of Service: 11/23/24 Date of admission: 11/19/24 05:39 Date of discharge: 11/23/24 Primary care physician: Michael Gutierrez MD Consults: 11/19/24 05:40 Addiction Medicine Routine Consulting Provider: Addiction Covering Reason for consultation: opioid and cocaine use disorder 11/19/24 06:02 Consult to General Surgery Routine Consulting Provider: [facility] Reason for consultation: forearm abscess 11/22/24 08:03 Consult to Wound Care Routine Reason for consultation: Right Arm Wound nonsurigcal DS: Diagnosis Discharge Diagnosis (1) Abscess: Status: Acute (2) Opioid use disorder, severe, in sustained remission: Status: Acute (3) Sepsis: Status: Acute (4) Elevated WBC count: Status: Acute (5) Cellulitis: Status: Acute DS: Summary Hospital Course Hospital Course: Admission note HPI This is a 43-year-old female with pertinent history of polysubstance IVDU, mood disorder, complex regional pain syndrome who presents to the emergency department concerns of left arm infection. Patient states she was doing well until a week ago when she relapsed. Does endorse injection of cocaine and heroin which he last used 1 day prior to presentation. Patient presents today for worsening left forearm redness, swelling and pain. She is able to bend and extend the left elbow. Also has had a right arm wound for a while. Patient states she ran out of Klonopin a month ago and is asking for it. States she is compliant with her other p.o. medications. No fever, chills, chest pain, palpitations, shortness of breath, abdominal pain, changes in urinary or bowel habits. In the emergency department, patient found to be septic and imaging concerning for abscess. Hospital course The patient was treated for: # Sepsis due to left arm cellulitis with abscess that was covered with IV antibiotics of Vancomycin and Zosyn. Blood cultures negative. Evaluated by Orthopedic team who did I&D with fair response and plan for outpatient follow up with dr Wagner. To be discharged on 10 more days of PO Doxycycline and Augmentin. # Polysubstance use disorder she was evaluated by Addiction Team and restarted her home dose Methadone. She will continue to follow with [facility]. advised complete abstinence from all kinds of drugs. Discharge plan Dressing should remain clean dry and intact until follow-up in Dr Wagner office in 1-2 weeks Continue Augmentin and Doxycycline for 10 more days change dressing when saturated Avoid using drugs Time Attestation Discharge Coordination Time (in mins): 44 Quality: Safe Use of Opioids Does Pt have an Active Cancer Diagnosis on the Problem List?: No Quality: Stroke Does the patient have a stroke diagnosis?: No Physical Exam Vital Signs: Vital Signs: Last Vital Signs Temp 97.4 F 11/23/24 07:44 Pulse 58 11/23/24 07:44 Resp 16 11/23/24 07:44 BP 131/61 11/23/24 07:44 Pulse Ox 97 11/23/24 07:44 O2 Del Method Room Air 11/23/24 07:44 BMI result Body Mass Index 25.4 Const: Other: Constitutional : interactive, not in distress Cardiovascular : no JVP, no lower extremity edema Respiratory : bilateral chest movement, not in resp distress Gastrointestinal: soft, lax, Non tender Skin : Warm, Dry, injection mazariegos, Left forearm less swollen, improved erythema and no more tenderness , covered with dressing Neurological : Alert & oriented , No focal deficit DS: Data Data Completed and Pending Labs on day of discharge: Laboratory Results - last 24 hr 11/22/24 11/23/24 16:34 06:10 Creatinine 0.73 Estim Creat Clear Calc 86.6 Estimated GFR > 60 Random Vancomycin 17.4 Preliminary micro results at discharge 11/19/24 03:23 Blood Culture - Preliminary Blood - Venous No growth after 48 hours. 11/19/24 03:25 Blood Culture - Preliminary Blood - Venous No growth after 48 hours. Imaging Chest x-ray: Radiologist's impression: Elbow CT scan Impression: Extensive soft tissue edema compatible with cellulitis left forearm extending to the distal arm, with approximately 2 x 5 x 7 cm abscess in the common extensor group. This document has been electronically signed by: Al Weems MD on 11/19/2024 05:56:47 Discharge Plan Discharge Anticipated Discharge Date/Time: 11/23/24 11:33 Patient Disposition: Home, Self-Care Discharge Diagnosis: Abscess Referrals: Jonathan Godfrey PA [Physician Agricultural Research Technician] - 1 Week (11/29/24 11:45 [facility] Jonathan Godfrey PA) Michael Gutierrez MD [Primary Care Provider] - 1 Week Discharge Medications: New doxycycline monohydrate 100 mg capsule 100 mg PO BID Qty: 20 0RF amoxicillin-pot clavulanate 875-125 mg tablet 1 tab PO BID Qty: 20 0RF Continued (DME) Bone Stimulator See Rx Instructions .ROUTE .MEDSUPPLY Qty: 1 0RF Rx Instructions: posterior malleolar fracture-delayed healing and osteopenia clonidine HCl 0.2 mg tablet 0.2 mg PO BID Qty: 28 0RF ibuprofen 600 mg tablet 600 mg PO Q8H PRN (Reason: pain) Qty: 20 0RF buspirone 10 mg tablet 10 mg PO BID hydroxyzine pamoate 25 mg capsule 25 mg PO BID naproxen sodium [Aleve] 220 mg Tablet 220 mg PO BID PRN (Reason: migraines) methadone 10 mg/mL Concentrate 120 mg PO DAILY methadone 10 mg/mL Concentrate 110 mg PO BEDTIME clonazepam [Klonopin] 1 mg tablet 1 mg PO BID Qty: 15 0RF baclofen 10 mg tablet 10 mg PO DAILY PRN (Reason: muscle spasm) Qty: 90 0RF gabapentin 300 mg capsule 900 mg PO TID Qty: 180 0RF quetiapine 400 mg tablet 400 mg PO BEDTIME 7 Days Qty: 7 0RF Discharge Orders: Discharge Order (Routine); Ordered 11/23/24 Ordered By: Sunita Bell Diet: Advance to usual diet Activity on Discharge: As tolerated Stand Alone Forms: Patient Portal Discharge page Print Language: Latvian Care Plan Goals: Dressing should remain clean dry and intact until follow-up in Dr Wagner office in 1-2 weeks Continue Augmentin and Doxycycline for 10 more days change dressing when saturated Avoid using drugs Health Concerns: Abscess IV drug abuse Plan of Treatment: Antibiotics ORthopedics follow up Assessment: as above
--- NOTE | 2024-11-23 11:47 | MHC.CM.PN ---
PT TO [place] HOME TODAY WITH NO SERVICES VIA PRIVATE TRANSPORT
[2024-11-23] MEDS: clonazePAM 1 MG TABLET PO (12:16)
== END 2024-11-23 13:42 | disposition home or self-care (01) | DRG 364 ==
LOC: HO.ED 04:26 → HO.EDOVER 06:20 → HO.S3 11-20 10:35
PROVIDERS: Orthopaedic Surgery; Admitting Provider Student in an Organized Health Care Education/Training Program; Emergency Provider Emergency Medicine; PCP Internal Medicine; Visit Provider Student in an Organized Health Care Education/Training Program
PROC: 0J9H0ZZ Drainage of Left Lower Arm Subcutaneous Tissue and Fascia, Open Approach (ICD-10-PCS; principal; 2024-11-21 14:40)
DX: L02.414 Cutaneous abscess of left upper limb (principal); D64.9 Anemia, unspecified; L03.114 Cellulitis of left upper limb; F11.20 Opioid dependence, uncomplicated; F39 Unspecified mood [affective] disorder; F19.90 Other psychoactive substance use, unspecified, uncomplicated; F17.210 Nicotine dependence, cigarettes, uncomplicated; Z71.6 Tobacco abuse counseling; Z79.899 Other long term (current) drug therapy
CPT/HCPCS: 36415; 73201; 80048; 80053; 80202; 80307; 81025; 82550; 82565; 83605; 84702; 85025; 87040; 87070; 87205; 93005; 99285; J0131; J0690; J1100; J1650; J2250; J2405; J2543; J2795; J3010; J3370; J3371; J7120; Q9967

== ENCOUNTER → 2024-11-19 02:34 | Outpatient (BNV) | payer OTHER, SELFPAY | PROVIDERS: Emergency Provider Emergency Medicine; Visit Provider Student in an Organized Health Care Education/Training Program | DX: F11.21 Opioid dependence, in remission (principal); A41.9 Sepsis, unspecified organism; L02.91 Cutaneous abscess, unspecified | CPT/HCPCS: 99233; 99239 ==

== ENCOUNTER → 2024-11-19 03:49 | Outpatient (BNV) | payer OTHER, SELFPAY | PROVIDERS: Emergency Provider Emergency Medicine; Visit Provider Radiology Diagnostic Radiology | DX: L03.114 Cellulitis of left upper limb (principal); L02.414 Cutaneous abscess of left upper limb | CPT/HCPCS: 73201 ==

== ENCOUNTER 2024-11-19 05:39 | Outpatient (BNV) | payer OTHER, SELFPAY | END 2024-11-19 20:25 | PROVIDERS: Admitting Provider Student in an Organized Health Care Education/Training Program; Emergency Provider Emergency Medicine; Visit Provider Internal Medicine Cardiovascular Disease | DX: R94.31 Abnormal electrocardiogram [ECG] [EKG] (principal) | CPT/HCPCS: 93010 ==

== ENCOUNTER → 2024-11-19 05:39 | Outpatient (BNV) | payer OTHER, SELFPAY | PROVIDERS: Admitting Provider Student in an Organized Health Care Education/Training Program; Emergency Provider Emergency Medicine; Visit Provider Physician Assistant Surgical | DX: L03.114 Cellulitis of left upper limb (principal) | CPT/HCPCS: 99222 ==

== ENCOUNTER → 2024-11-19 05:39 | Outpatient (BNV) | payer OTHER, SELFPAY | PROVIDERS: Admitting Provider Student in an Organized Health Care Education/Training Program; Emergency Provider Emergency Medicine; Visit Provider Physician Assistant | DX: L02.414 Cutaneous abscess of left upper limb (principal) | CPT/HCPCS: 99222 ==

== ENCOUNTER → 2024-11-19 05:39 | Outpatient (BNV) | payer OTHER, SELFPAY | PROVIDERS: Admitting Provider Student in an Organized Health Care Education/Training Program; Emergency Provider Emergency Medicine; Visit Provider Nurse Practitioner Psychiatric/Mental Health | DX: F11.21 Opioid dependence, in remission (principal) | CPT/HCPCS: 99232 ==

== ENCOUNTER 2024-11-29 11:50 | Outpatient (AMB) | payer OTHER, SELFPAY ==
--- NOTE | 2024-11-29 11:53 | A.OFFVIS_ITS ---
Intake Visit Reasons: PO LT forearm abscess 11/21/24 Intake Note: Lavonne is a 44 year old female who presents today s/p left forearm abscess incision and drainage, DOS: 11/21/24, by Dr. Wagner. Patient reports she is doing well. She is taking her antibiotics and Ibuprofen PRN. Reports no concerns today. Allergies No Known Allergies Allergy (Verified 11/29/24 11:54) HPI HPI PO LT forearm abscess 11/21/24 DR: Details: Lavonne is a 44 year old female who presents today s/p left forearm abscess incision and drainage, DOS: 11/21/24, by Dr. Wagner. Patient reports she is doing well. She is taking her antibiotics and Ibuprofen PRN. Reports no concerns today. [facility] Medical History CRPS (complex regional pain syndrome type I) Social History Household Members: None Housing: Apartment Do you presently have visiting nurse or other home services: No Comment: Significant other bedside Patient Tobacco Use Status: Current everyday Tobacco user Tobacco use type: Cigarette Cigarettes Per Day: 5 Substance Use Type: Crack/Cocaine service: No Current occupational status: employed Current occupation: Rt handed Review of Systems Const All systems reviewed & are unremarkable except as noted in HPI and below Physical Exam Extrem Other: Patient is alert, oriented, and in no acute distress. Neuro: Normal sensation of the tips of all digits of the left hand at this time Vascular: Cap refill brisk Pain: No tenderness to palpation about incision site on left dorsal forearm Range of motion of the right hand and wrist painless ROM: Patient is able to flex and extend all digits of the left hand fully and without difficulty Patient was able to pronate and supinate the left wrist fully without difficulty Skin: Well approximated and well healing incision site noted on the dorsal right forearm General: No ecchymosis, erythema, or evidence of infection. Psych: Appears grossly normal Affect normal Attitude cooperative Assessment & Plan Assessment & Plan (1) Wound of right upper extremity: Code(s): S41.101A - Unspecified open wound of right upper arm, initial encounter Category: Medical Plan Status post I and D of left forearm DOS 11/21/2024 Patient appears to be recovering well postoperatively Patient is educated about the typical recovery course At this time, patient was informed that she should finish her course of antibiotics prescribed by the hospitalist service, but likely will not require any more Patient was also educated that she will need to come back in another week to have her sutures removed Patient was amenable to this plan Patient will follow-up in 1 week for suture removal, sooner with any acute concerns Orders: Referrals Wound Care Referral S41.101A - Unspecified open wound of right upper arm, initial encounter Coding Level of Care Code Global (05415) Diagnoses Wound of right upper extremity S41.101A
--- OUTSIDE RECORDS SUMMARY | 2024-11-29 12:27 | XMS_ITS | Continuity of Care Document ---
Author Organization [facility] Address [address], [address], [address] [place] [id number]- Support Name Relationship Address Phone RAYMON, JOSEPH Personal Relationship Unknown Un available BELLEVILLE, DANIELE Personal Relationship Unknown Unavailable SIMIS, JOSEPH Personal Relationship Unknown Un available SIMIS, JOSEPH Personal Relationship Unknown Un available SIMIS, JOSEPH Personal Relationship Unknown Un available SIMIS, JOSEPH Personal Relationship Unknown Un available [place], WILLIAM child Unknown Unavailabl e SIMIS, JOSEPH Personal Relationship Unknown Un available SIMIS, JOSEPH Personal Relationship Unknown Un available [place]EL[place], LOPEZ Personal Relationship Unknown U navailable SIMIS, JOSEPH Personal Relationship Unknown Un available SIMIS, JOSEPH Personal Relationship Unknown Un available SIMIS, JOSEPH Personal Relationship Unknown Un available SIMIS, JOSEPH Personal Relationship Unknown Un available SIMIS, JOSEPH Personal Relationship Unknown Un available [place], DANIELE mother Unknown Unavai lable SIMIS, JOSEPH Personal Relationship Unknown Un available SIMIS, JOSEPH Personal Relationship Unknown Un available SIMIS, JOSEPH Personal Relationship Unknown Un available SIMIS, JOSEPH Personal Relationship Unknown Un available SIMIS, JOSEPH Personal Relationship Unknown Un available SIMIS, JOSEPH Personal Relationship Unknown Un available Care Team Providers Care Gas Leak Inspector Helper Name Role Phone Michael Gutierrez MD Primary Care Physician [place] [facility] [place] 10/21/24 - 11/20/24 [facility] [address] [place] [address] [address] Floor, [address] [place] [id number] Encounter Type: Triage Allergies, Adverse Reactions, Alerts No Known Allergies Immunizations Given and Recorded Vaccine Date Status Refusal Reason SARS-CoV-2 (COVID-19) mRNA BNT-162b2 vac 03/18/21 Recorded SARS-CoV-2 (COVID-19) mRNA BNT-162b2 vac 02/25/21 Recorded tetanus/diphtheria/pertussis, acel(Tdap) 01/09/20 Given tetanus/diphtheria/pertussis, acel(Tdap) 1 06/29/18 Given influenza virus vaccine, inactivated 2 11/07/19 Gi rosalio influenza virus vaccine, inactivated 3 08/28/17 Gi rosalio influenza virus vaccine, inactivated 08/21/17 Guicho rded influenza virus vaccine, inactivated 4 10/02/15 Gi rosalio Afluria (oldterm) 5 07/13/16 Given Tet/Diphth/Acel, Pertussis (oldterm) 03/06/08 Give n 1Result Comment: [06/29/2018] VIS sheet given, pt tolerated well 2Result Comment: Patient tolerated well NS. 3Admin Note: [facility] 4Admin Note: Declined 5Admin Note: [facility] Medications Elda 0.35 mg oral tablet 1 tablet = 0.35 mg, By Mouth, Daily, # 28 tablet, 6 Refills, Maintenance, 05/12/22 11:26:00 AM EDT, Tablet, [facility] #[id number], Partial fill upon patient request if the prescription is for a schedule II opioid drug., 158, cm, 05/12/22 10:43:00 EDT, Height Start Date: 05/12/22 Status: Ordered Quantity: 28.0 Unit: tablet Repeat number: 7 clonazePAM 1 mg oral tablet 1 tablet = 1 mg, By Mouth, 2 times a day, # 60 tablet, 1 Refills, Maintenance, 07/30/19 11:44:00 AM EDT, [facility] #[id number] Start Date: 07/30/19 Stop Date: 09/28/19 Status: Ordered Quantity: 60.0 Unit: tablet Repeat number: 2 Indication: Anxiety disorder, unspecified cloNIDine 0.2 mg oral tablet See Instructions, # 60 tablet, Refills 5 Tot. Refills 5, TAKE 1 TABLET BY MOUTH TWICE DAILY, [facility] #[id number] Start Date: 07/31/19 Status: Ordered Quantity: 60.0 Unit: tablet Repeat number: 6 fluticasone 50 mcg/inh nasal spray See Instructions, SHAKE LIQUID AND USE 1 SPRAY IN EACH NOSTRIL TWICE DAILY, # 16 Gm, 5 Refills, Maintenance, 04/25/21 9:43:00 AM EDT, [facility] #[id number], 30, SHAKE LIQUID AND USE 1 SPRAY IN EACH NOSTRIL TWICE DAILY, 158, cm, 03/25/21 13:19:00 EDT, Height, 83.6, kg, 04/03/20 7:47:00 EDT, [facility] Start Date: 04/25/21 Status: Ordered Quantity: 16.0 Unit: g Repeat number: 6 hydrOXYzine pamoate 25 mg oral capsule 1 capsule = 25 mg, By Mouth, 4 times a day, PRN for anxiety, # 40 capsule, 0 Refills, Maintenance, 09/09/24 11:36:00 AM EST, Capsule, Partial fill upon patient request if the prescription is for a schedule II opioid drug. Start Date: 09/09/24 Status: Ordered Quantity: 40.0 Unit: capsule Repeat number: 1 Methadone 140, By Mouth, Daily, 0 Refills, Maintenance, 04/28/22 2:29:00 PM EDT, Partial fill upon patient request if the prescription is for a schedule II opioid drug. Start Date: 04/28/22 Status: Ordered Repeat number: 1 Neurontin 300 mg oral capsule 900 mg, 3, capsule, By Mouth, 3 times a day, # 270 capsule, Refills 5, Tot. Refills 5, Maintenance,03/28/19 1:00:13 PM EDT, Route to Pharmacy Electronically, [facility] [id number] Start Date: 03/28/19 Stop Date: 09/24/19 Status: Ordered Quantity: 270.0 Unit: capsule Repeat number: 6 QUEtiapine 400 mg oral tablet See Instructions, # 30 tablet, Refills 5 Tot. Refills 5, TAKE 1 TABLET BY MOUTH DAILY AT BEDTIME, [facility] #[id number] Start Date: 08/09/19 Status: Ordered Quantity: 30.0 Unit: tablet Repeat number: 6 Problem List Condition Confirmation Course Effective Dates Status Health Status Informant Anxiety disorder Confirmed Active Depression 1 Confirmed Active Hepatitis C Confirmed Active History of substance abuse Confirmed Active Hypercholesterolemia Confirmed 11/24/10 Active Migraine 2 Confirmed Active Opioid dependence on maintenance agonist therapy, no symptoms 3 Confirmed Active PTSD (post-traumatic stress disorder) Confirmed Active Major depression, recurrent Confirmed Active Hx of Seizures 4 Confirmed Active Spasm of muscle Confirmed Active 1Has therapist, tries to see q2wks, but her availability makes it hard to see her like patient wouldto see her. 2Hx of frequent migraines. Managed by pcp mainly, but reports has tried many meds and none seem to work and they tend to make her heart race. 3buprinorphine 4None in years, clonazepam 1mg bid. Has seen neuro in past. Social History Social History Type Response Tobacco Use: 4 or less cigar ettes(less than 1/4 pack)/day in last 30 days. Other: 3 cigs/day, 26 year smoking history.. Sex Sex Representation Female (finding) Patient Care team information Care Team Personnel Name: Michael Gutierrez MD Position: [facility] Physician - Primary Care Member Role: PCP Address: [address] [place] [address] [address] [place] [address]- Telecom: Care Team Related Persons Name: WILLIAM COLLINS Name: DANIELE COLLINS Insurance Providers Guarantor name: JOSEPH ENNIS [employer] Plan Information #: 1 Payer: [employer] Member Number: NA Policy Number: NA Group Number: NA
--- OUTSIDE RECORDS SUMMARY | 2024-11-29 12:27 | XMS_ITS | Continuity of Care Document ---
Author Organization [facility] Address [address] [place] [address]- Support Name Relationship Address Phone SIMIS, JOSEPH Personal Relationship Unknown Un available [...] Unknown Un available Care Team Providers Care Pattern Shop Supervisor Name Role Phone Michael Gutierrez MD Primary Care Physician [phone] Encounter [facility] Date(s): 09/09/24 - 11/28/[address] [address] Attending Physician: Michael Gutierrez MD Encounter Type: Pre Office Visit Allergies, Adverse Reactions, Alerts No Known Allergies [...] Comment: Patient tolerated well NS. 3Admin Note: [facility] 4Admin Note: Declined 5Admin Note: [facility] Medications Elda 0.35 mg oral tablet 1 tablet = 0.35 mg, By Mouth, Daily, # 28 tablet, 6 Refills, Maintenance, 05/12/22 11:26:00 AM EDT, Tablet, [facility] #[id number], Partial fill upon patient request if the prescription is for a schedule II opioid drug., 158, cm, 05/12/22 10:43:00 EDT, Height Start Date: 05/12/22 Status: Ordered Quantity: 28.0 Unit: tablet Repeat number: 7 clonazePAM 1 mg oral tablet 1 tablet = 1 mg, By Mouth, 2 times a day, # 60 tablet, 1 Refills, Maintenance, 07/30/19 11:44:00 AM EDT, [facility] #[id number] Start Date: 07/30/19 Stop Date: 09/28/19 Status: Ordered Quantity: 60.0 Unit: tablet Repeat number: 2 Indication: Anxiety disorder, unspecified cloNIDine 0.2 mg oral tablet See Instructions, # 60 tablet, Refills 5 Tot. Refills 5, TAKE 1 TABLET BY MOUTH TWICE DAILY, [facility] #[id number] Start Date: 07/31/19 Status: Ordered Quantity: 60.0 Unit: tablet Repeat number: 6 fluticasone 50 mcg/inh nasal spray See Instructions, SHAKE LIQUID AND USE 1 SPRAY IN EACH NOSTRIL TWICE DAILY, # 16 Gm, 5 Refills, Maintenance, 04/25/21 9:43:00 AM EDT, [facility] #[id number], 30, SHAKE LIQUID AND USE 1 SPRAY [...] 1:00:13 PM EDT, Route to Pharmacy Electronically, [facility] [id number] Start Date: 03/28/19 Stop Date: 09/24/19 Status: Ordered Quantity: 270.0 Unit: capsule Repeat number: 6 QUEtiapine 400 mg oral tablet See Instructions, # 30 tablet, Refills 5 Tot. Refills 5, TAKE 1 TABLET BY MOUTH DAILY AT BEDTIME, [facility] #[id number] Start Date: 08/09/19 Status: Ordered Quantity: 30.0 [...] Team Personnel Name: Michael Gutierrez MD Position: [facility] Physician - Primary Care Member Role: PCP Address: [address] [place] [address] Telecom: Care Team Related Persons Name: WILLIAM COLLINS Name: DANIELE COLLINS Insurance Providers Guarantor name: JOSEPH RAYMON Health Plan Information #: 1 Payer: [employer] [facility] [employer] Member Number: [id number] Policy Number: NA Group Number: [id number] Health Plan Information #: 2 Payer: [facility] Member Number: [id number] Policy Number: NA Group Number: NA
--- OUTSIDE RECORDS SUMMARY | 2024-11-29 12:27 | XMS_ITS | Continuity of Care Document ---
Author Organization [facility] Address [address] [place] [address]- Support Name Relationship Address Phone SIMLUKE, JOSEPH Personal Relationship Unknown Un available [place], [...] Unknown Un available Care Team Providers Care Pier Runner Name Role Phone Brenda SRIVASTAVA, Michael Primary Care Physician [phone] Encounter [facility] Date(s): 10/29/24 - 11/28/[address] [address]- Attending Physician: Mercedez Barajas Admitting Physician: Mercedez Barajas Referring Physician: Mercedez Barajas Encounter Type: Triage Allergies, Adverse Reactions, Alerts [...] Comment: Patient tolerated well NS. 3Admin Note: [facility] 4Admin Note: Declined 5Admin Note: [facility] Medications Elda 0.35 mg oral tablet 1 tablet = 0.35 mg, By Mouth, Daily, # 28 tablet, 6 Refills, Maintenance, 05/12/22 11:26:00 AM EDT, Tablet, [facility] #[id number], Partial fill upon patient request if the prescription is for a schedule II opioid drug., 158, cm, 05/12/22 10:43:00 EDT, Height Start Date: 05/12/22 Status: Ordered Quantity: 28.0 Unit: tablet Repeat number: 7 clonazePAM 1 mg oral tablet 1 tablet = 1 mg, By Mouth, 2 times a day, # 60 tablet, 1 Refills, Maintenance, 07/30/19 11:44:00 AM EDT, [facility] #[id number] Start Date: 07/30/19 Stop Date: 09/28/19 Status: Ordered Quantity: 60.0 Unit: tablet Repeat number: 2 Indication: Anxiety disorder, unspecified cloNIDine 0.2 mg oral tablet See Instructions, # 60 tablet, Refills 5 Tot. Refills 5, TAKE 1 TABLET BY MOUTH TWICE DAILY, [facility] #[id number] Start Date: 07/31/19 Status: Ordered Quantity: 60.0 Unit: tablet Repeat number: 6 fluticasone 50 mcg/inh nasal spray See Instructions, SHAKE LIQUID AND USE 1 SPRAY IN EACH NOSTRIL TWICE DAILY, # 16 Gm, 5 Refills, Maintenance, 04/25/21 9:43:00 AM EDT, [facility] #[id number], 30, SHAKE LIQUID AND USE 1 SPRAY [...] 1:00:13 PM EDT, Route to Pharmacy Electronically, [facility] [id number] Start Date: 03/28/19 Stop Date: 09/24/19 Status: Ordered Quantity: 270.0 Unit: capsule Repeat number: 6 QUEtiapine 400 mg oral tablet See Instructions, # 30 tablet, Refills 5 Tot. Refills 5, TAKE 1 TABLET BY MOUTH DAILY AT BEDTIME, [facility] #[id number] Start Date: 08/09/19 Status: Ordered Quantity: 30.0 [...] smoking history.. Sex Sex Representation Female (finding) Cardiology Outpatient Note * Starla Mcgregor: PERFORM Event Display: Cardiology Note Office Authored Date: [id number] Patient Care team information Care Team Personnel Name: Michael Gutierrez MD Position: [facility] Physician - Primary Care Member Role: PCP Address: [address] [place] [id number] Telecom: Care Team Related Persons Name: WILLIAM COLLINS Name: DANIELE COLLINS Insurance Providers Guarantor name: JOSEPH ENNIS [employer] Plan Information #: 1 Payer: [employer] Member Number: NA Policy Number: NA Group Number: NA
== END 2024-11-29 12:14 | disposition home or self-care (01) ==
PROVIDERS: PCP Internal Medicine
DX: S41.101A Unspecified open wound of right upper arm, initial encounter (principal); L02.414 Cutaneous abscess of left upper limb
CPT/HCPCS: 99024

== ENCOUNTER → 2024-11-29 11:50 | Outpatient (BNVA) | payer OTHER, SELFPAY | PROVIDERS: PCP Internal Medicine | DX: S41.101D Unspecified open wound of right upper arm, subsequent encounter (principal) | CPT/HCPCS: 99212 ==

== ENCOUNTER 2024-12-06 11:24 | Outpatient (AMB) | payer OTHER, SELFPAY ==
--- NOTE | 2024-12-06 11:26 | MHC.OFFVIS ---
Vital Signs 12/06/24 11:28 Height 5 ft 2 in Weight 150 lb BMI 27.4 Intake Visit Reasons: PO LT forearm abscess 11/21/24 DR-suture removal Intake Note: Lavonne is a 44 year old right hand dominant female who presents today for a post operative visit for suture removal s/p Left Forearm I&D 11/21/24. Patient reports that wound care has not called her yet, she still has a dressing on the right upper arm from 11/22 that has not been changed. She is worried that they put a silver packing in it and she doesnt want her skin to heal over it. Allergies No Known Allergies Allergy (Verified 11/29/24 11:54) HPI HPI PO LT forearm abscess 11/21/24 DR-suture removal: Details: Lavonne is a 44 year old female who presents today s/p left forearm abscess incision and drainage, DOS: 11/21/24, by Dr. Wagner. Patient reports she is doing well. She is taking her antibiotics and Ibuprofen PRN. Reports no concerns today. [facility] Medical History CRPS (complex regional pain syndrome type I) Social History Household Members: None Housing: Apartment Do you presently have visiting nurse or other home services: No Comment: Significant other bedside Patient Tobacco Use Status: Current everyday Tobacco user Tobacco use type: Cigarette Cigarettes Per Day: 5 Substance Use Type: Crack/Cocaine service: No Current occupational status: employed Current occupation: Rt handed Review of Systems Const All systems reviewed & are unremarkable except as noted in HPI and below Physical Exam Vital Signs: BMI result Body Mass Index 27.4 Extrem Other: Patient is alert, oriented, and in no acute distress. Neuro: Normal sensation of the tips of all digits of the left hand at this time Vascular: Cap refill brisk Pain: No tenderness to palpation about incision site on left dorsal forearm Range of motion of the right hand and wrist painless ROM: Patient is able to flex and extend all digits of the left hand fully and without difficulty Patient was able to pronate and supinate the left wrist fully without difficulty Skin: Well approximated and well healing incision site noted on the dorsal right forearm General: No ecchymosis, erythema, or evidence of infection. Psych: Appears grossly normal Affect normal Attitude cooperative Assessment & Plan Assessment & Plan (1) Wound of right upper extremity: Code(s): S41.101A - Unspecified open wound of right upper arm, initial encounter Category: Medical Plan Status post I and D of left forearm DOS 11/21/2024 Patient appears to be recovering well postoperatively Patient is educated about the typical recovery course At this time, patient was informed that she should finish her course of antibiotics prescribed by the hospitalist service, but likely will not require any more Sutures Removed, Steri-Strips applied Patient was amenable to this plan Patient will follow-up in 2 week for reassessment, sooner with any acute concerns Coding Level of Care Code Global (75702) Diagnoses Wound of right upper extremity S41.101A
[2024-12-06 11:28] VITALS: BMI 27.4
--- OUTSIDE RECORDS SUMMARY | 2024-12-06 12:29 | XMS_ITS | Clinical Summary ---
Author Organization [facility] ity Address [address] [place] [address] Care Team Providers Care Silk Weaver Name Role Phone Unavailable Primary Care Provider Unavailabl e Social History Tobacco Use Types Packs/Day Years Used Date Smoking Tobacco: Never Assessed Sex and Gender Information Value Date Recorded Sex Assigned at Not on file Gender Identity Not on file Sexual Orientation Not on file Plan of Treatment Health Maintenance Due Date Last Done Comments Breast Cancer Screening 1980 DTaP,Tdap,and Td Vaccines (1 - Tdap) 1999 Hepatitis B Vaccines (1 of 3 - 19+ 3-dose series) 1999 Cervical Cancer Screening: P ap Smear 2001 COVID-19 Vaccine (2023-2 5 season) 2024 Influenza Vaccine (#1) 2024 HIB Vaccines Aged Out No longer eligi ble based on patient's age to complete this topic HPV Vaccines Aged Out No longer eligi ble based on patient's age to complete this topic Hepatitis A Vaccines Aged Out No long er eligible based on patient's age to complete this topic IPV Vaccines Aged Out No longer eligi ble based on patient's age to complete this topic MMR Vaccines Aged Out No longer eligi ble based on patient's age to complete this topic Meningococcal ACWY Vaccine Aged Out N o longer eligible based on patient's age to complete this topic Pneumococcal Vaccine: Pediat rics (0 to 5 Years) and At-Risk Patients (6 to 64 Years) Aged Out No longer eligible b ased on patient's age to complete this topic RSV Immunization Patients Un leigh 20 months Aged Out No longer eligible b ased on patient's age to complete this topic Varicella Vaccines Aged Out No longer eligible based on patient's age to complete this topic
== END 2024-12-06 11:47 | disposition home or self-care (01) ==
PROVIDERS: PCP Internal Medicine
DX: S41.101A Unspecified open wound of right upper arm, initial encounter (principal)
CPT/HCPCS: 99024

== ENCOUNTER → 2024-12-06 11:24 | Outpatient (BNVA) | payer OTHER, SELFPAY | PROVIDERS: PCP Internal Medicine | DX: S41.101D Unspecified open wound of right upper arm, subsequent encounter (principal); X58.XXXD Exposure to other specified factors, subsequent encounter; Z98.890 Other specified postprocedural states | CPT/HCPCS: 99212 ==

== ENCOUNTER 2025-06-05 15:51 | Emergency (ER) | payer OTHER, SELFPAY ==
[2025-06-05 16:09] VITALS: BP 121/61; PULSE 74; RESP 16; TEMP 37.3; O2SAT 97; BMI 22.3
--- NOTE | 2025-06-05 16:09 | ED.GENADULT ---
HPI - General Adult General Chief complaint: General Medical Stated complaint: out of psych meds for a wk Time Seen by Provider: 06/05/25 16:11 Source: patient, RN notes reviewed and old records reviewed Mode of arrival: ambulatory Limitations: no limitations History of Present Illness ED Provider: Radha HPI narrative: Patient is a 44-year old female presenting to the emergency department requesting refills of permanent regularly prescribed medications. States she was previously receiving her medications through [facility] in [place] but that they abruptly closed and she cannot get an appointment anywhere else for 3 months. States she was cutting her pills in half to make her medications last longer. Has been drinking alcohol at night to sleep for the past week. Denies any current physical complaints. Reports anxiety but denies SI, HI. Denies recent seizures. MD complaint: Ran out of medications Related Data Home Medications ?Medication ?Instructions ?Recorded ?Confirmed buspirone 10 mg tablet 10 mg PO BID 11/19/24 11/19/24 hydroxyzine pamoate 25 mg capsule 25 mg PO BID 11/19/24 11/19/24 methadone 10 mg/mL oral concentrate 110 mg PO BEDTIME 11/19/24 11/19/24 methadone 10 mg/mL oral concentrate 120 mg PO DAILY 11/19/24 11/19/24 naproxen sodium 220 mg tablet 220 mg PO BID PRN migraines 11/19/24 11/19/24 (Alfreda) Previous Rx's ?Medication ?Instructions ?Recorded ibuprofen 600 mg tablet 600 mg PO Q8H PRN pain #20 tabs 11/23/21 Bone Stimulator #1 ea 07/18/22 clonidine HCl 0.2 mg tablet 0.2 mg PO BID #28 tabs 08/10/22 quetiapine 400 mg tablet 400 mg PO BEDTIME 7 days #7 tabs 10/18/23 amoxicillin 875 mg-potassium 1 tab PO BID #20 tabs 11/23/24 clavulanate 125 mg tablet baclofen 10 mg tablet 10 mg PO DAILY PRN muscle spasm 11/23/24 #90 tabs clonazepam 1 mg tablet (Klonopin) 1 mg PO BID #15 tabs 11/23/24 doxycycline monohydrate 100 mg 100 mg PO BID #20 caps 11/23/24 capsule gabapentin 300 mg capsule 900 mg (3 x 300 mg) PO TID #180 11/23/24 caps baclofen 10 mg tablet 10 mg PO BID 30 days #60 tabs 06/05/25 clonazepam 1 mg tablet (Klonopin) 1 mg PO BID 7 days #14 tabs 06/05/25 clonidine HCl 0.2 mg tablet 0.2 mg PO BID 30 days #60 tabs 06/05/25 gabapentin 300 mg capsule 900 mg (3 x 300 mg) PO TID 30 days 06/05/25 #270 caps hydroxyzine HCl 25 mg tablet 25 mg PO BID 30 days #60 tabs 06/05/25 quetiapine 400 mg tablet 400 mg PO BEDTIME 30 days #30 tabs 06/05/25 Allergies Allergy/AdvReac Type Severity Reaction Status Date / Time No Known Allergies Allergy Verified 06/05/25 16:10 Review of Systems Review of Systems: As per HPI Yes all other systems are reviewed and are negative Constitutional: Constitutional: Reports as per HPI [facility] Past Medical History Medical History CRPS (complex regional pain syndrome type I) Social History Social History Household Members: None Housing: Apartment Do you presently have visiting nurse or other home services: No Comment: Significant other bedside Patient Tobacco Use Status: Current everyday Tobacco user Tobacco use type: Cigarette Cigarettes Per Day: 5 Substance Use Type: Crack/Cocaine Advance Directives: No Advance Directives Information Provided: No service: No Current occupational status: employed Current occupation: Rt handed Physical Exam ED Vital Signs: Vital Signs - 24 hr 06/05/25 16:09 Temperature 99.1 F Pulse Rate 74 Respiratory Rate 16 Blood Pressure 121/61 Pulse Oximetry 97 Oxygen Delivery Method Room Air BMI result Body Mass Index 22.3 Vital signs have been reviewed and appear to be correct. Blood pressure normal. Heart rate normal. Respiratory rate normal. Temperature normal. Oxygen saturation normal. Const General: cooperative, healthy appearing and no acute distress Orientation/consciousness: oriented to person, oriented to place, oriented to time and patient oriented x3 Limitations: no limitations HENMT Head: Yes normocephalic and Yes atraumatic Ears: external ears normal General nose exam: Normal external nose present Face and sinus: Yes face symmetric Mouth: oropharynx normal and moist mucous membranes Throat: Yes uvula midline Eyes Pupils: Equal, round and reactive pupils present Neck Neck: Yes normal visual inspection and Yes supple Resp Effort & Inspection: normal respiratory effort and able to speak in complete sentences Auscultation: clear to auscultation bilaterally Cardio Rate: regular rate Rhythm: regular rhythm Heart sounds: S1 normal heart sound present and S2 normal heart sound present GI Palpation (GI): Soft to palpation and nontender Auscultation: normoactive bowel sounds General: Yes no CVA tenderness Back/Spine/Pelvis Back: no CVA tenderness Skin General skin exam: elasticity normal and turgor normal Neuro General: oriented to person, oriented to place, oriented to time, patient oriented x3, moves all extremities, no focal motor deficits and CN's II-XI intact bilaterally Cranial nerves: Yes Equal, round and reactive pupils present Cognition (Neuro): normal cognition Extrem General: Yes full ROM, Yes no pedal edema and Yes no calf tenderness Psych Mental Status: mental status grossly normal Affect: normal affect Thought process: Normal thought process present Medical Decision Making Medical Decision Making [facility] Narrative: Patient is a 44-year old female presenting to the emergency department requesting refills of permanent regularly prescribed medications. On exam patient is awake, A+Ox3, VS WNL, afebrile, normal neurological exam without focal deficits, physical exam findings as above. Given reported symptoms and physical exam findings, initial differential includes but is not limited to anxiety, out of medications. Case discussed with Dr. Patel who recommends 30-day refill of all medications except clonazepam. Patient provided with resources for finding a new therapist and advised to follow up with PCP. Return precautions discussed. Patient verbalized understanding of and agreement with plan. Differential Diagnosis Differential Diagnoses: The differential diagnosis associated with the presentation includes As per [facility] Admission/Observation Consideration of admission/observation: Escalation of care including admission/observation considered Patient would have been admitted to the hospital had their clinical presentation warranted hospital admission. External Record Review External record reviewed: Inpatient record, Office record and Outpatient record Prescription Management I considered prescription management with: Other Discharge Plan Discharge Clinical Impression: Medication refill Patient Disposition: Home, Self-Care Instructions: Medicine Refill (ED) Additional Instructions: You were seen in the emergency department today for a refill of your regularly prescribed medications. It is important that you follow-up with your primary care provider and/or establish an appointment with a new therapist, even if the weight is several months. Use the resources provided to at today's visit to establish care with a new therapist. Take all medications as prescribed. Return to the emergency department with new or concerning symptoms. Prescriptions: New gabapentin 300 mg capsule 900 mg PO TID 30 Days Qty: 270 0RF clonazepam [Klonopin] 1 mg tablet 1 mg PO BID 7 Days Qty: 14 0RF clonidine HCl 0.2 mg tablet 0.2 mg PO BID 30 Days Qty: 60 0RF baclofen 10 mg tablet 10 mg PO BID 30 Days Qty: 60 0RF hydroxyzine HCl 25 mg tablet 25 mg PO BID 30 Days Qty: 60 0RF quetiapine 400 mg tablet 400 mg PO BEDTIME 30 Days Qty: 30 0RF No Action (DME) Bone Stimulator See Rx Instructions .ROUTE .MEDSUPPLY Qty: 1 0RF Rx Instructions: posterior malleolar fracture-delayed healing and osteopenia clonidine HCl 0.2 mg tablet 0.2 mg PO BID Qty: 28 0RF ibuprofen 600 mg tablet 600 mg PO Q8H PRN (Reason: pain) Qty: 20 0RF buspirone 10 mg tablet 10 mg PO BID hydroxyzine pamoate 25 mg capsule 25 mg PO BID naproxen sodium [Aleve] 220 mg Tablet 220 mg PO BID PRN (Reason: migraines) methadone 10 mg/mL Concentrate 120 mg PO DAILY methadone 10 mg/mL Concentrate 110 mg PO BEDTIME doxycycline monohydrate 100 mg capsule 100 mg PO BID Qty: 20 0RF amoxicillin-pot clavulanate 875-125 mg tablet 1 tab PO BID Qty: 20 0RF clonazepam [Klonopin] 1 mg tablet 1 mg PO BID Qty: 15 0RF baclofen 10 mg tablet 10 mg PO DAILY PRN (Reason: muscle spasm) Qty: 90 0RF gabapentin 300 mg capsule 900 mg PO TID Qty: 180 0RF quetiapine 400 mg tablet 400 mg PO BEDTIME 7 Days Qty: 7 0RF Print Language: Egyptian
[2025-06-05 17:00] VITALS: BP 121/61; PULSE 74; RESP 16; TEMP 37.3; O2SAT 97
== END 2025-06-05 17:00 | disposition home or self-care (01) ==
PROVIDERS: Emergency Provider Emergency Medicine; PCP Internal Medicine
DX: F41.9 Anxiety disorder, unspecified (principal); Z76.0 Encounter for issue of repeat prescription
CPT/HCPCS: 99282

== ENCOUNTER 2025-06-12 13:32 | Emergency (ER) | payer OTHER, SELFPAY ==
[2025-06-12 13:45] VITALS: BP 111/65; PULSE 108; RESP 16; TEMP 36.7; O2SAT 97; BMI 23.4
--- NOTE | 2025-06-12 13:46 | ED.GENADULT ---
HPI - General Adult General Chief complaint: Medical Clearance Stated complaint: Med refill Time Seen by Provider: 06/12/25 14:23 Source: patient and old records reviewed Mode of arrival: ambulatory Limitations: no limitations History of Present Illness ED Provider: Radha HPI narrative: Patient is a 44-year-old female presenting to the emergency department requesting refill of clonazepam. Was seen here on 06/05 and given a 1 week prescription but advised that it would not be refilled and that she would need to follow up with her psychiatrist or PCP for additional refills. Patient states that she has been unable to get an appointment with either. She states she is feeling tremulous. Has appointment with new therapist in June. complaint: medication refill Related Data Home Medications ?Medication ?Instructions ?Recorded ?Confirmed buspirone 10 mg tablet 10 mg PO BID 11/19/24 11/19/24 hydroxyzine pamoate 25 mg capsule 25 mg PO BID 11/19/24 11/19/24 methadone 10 mg/mL oral concentrate 110 mg PO BEDTIME 11/19/24 11/19/24 methadone 10 mg/mL oral concentrate 120 mg PO DAILY 11/19/24 11/19/24 naproxen sodium 220 mg tablet 220 mg PO BID PRN migraines 11/19/24 11/19/24 (Alfreda) Previous Rx's ?Medication ?Instructions ?Recorded ibuprofen 600 mg tablet 600 mg PO Q8H PRN pain #20 tabs 11/23/21 Bone Stimulator #1 ea 07/18/22 clonidine HCl 0.2 mg tablet 0.2 mg PO BID #28 tabs 08/10/22 quetiapine 400 mg tablet 400 mg PO BEDTIME 7 days #7 tabs 10/18/23 amoxicillin 875 mg-potassium 1 tab PO BID #20 tabs 11/23/24 clavulanate 125 mg tablet baclofen 10 mg tablet 10 mg PO DAILY PRN muscle spasm 11/23/24 #90 tabs clonazepam 1 mg tablet (Klonopin) 1 mg PO BID #15 tabs 11/23/24 doxycycline monohydrate 100 mg 100 mg PO BID #20 caps 11/23/24 capsule gabapentin 300 mg capsule 900 mg (3 x 300 mg) PO TID #180 11/23/24 caps baclofen 10 mg tablet 10 mg PO BID 30 days #60 tabs 06/05/25 clonazepam 1 mg tablet (Klonopin) 1 mg PO BID 7 days #14 tabs 06/05/25 clonidine HCl 0.2 mg tablet 0.2 mg PO BID 30 days #60 tabs 06/05/25 gabapentin 300 mg capsule 900 mg (3 x 300 mg) PO TID 30 days 06/05/25 #270 caps hydroxyzine HCl 25 mg tablet 25 mg PO BID 30 days #60 tabs 06/05/25 quetiapine 400 mg tablet 400 mg PO BEDTIME 30 days #30 tabs 06/05/25 clonazepam 0.5 mg tablet (Klonopin) 1 mg (2 x 0.5 mg) PO BID 2 days #8 06/12/25 tabs Allergies Allergy/AdvReac Type Severity Reaction Status Date / Time No Known Allergies Allergy Verified 06/12/25 13:48 Review of Systems Review of Systems: as per HPI Yes all other systems are reviewed and are negative Constitutional: Constitutional: Reports as per HPI [facility] Past Medical History Medical History CRPS (complex regional pain syndrome type I) Social History Social History Household Members: None Housing: Apartment Do you presently have visiting nurse or other home services: No Comment: Significant other bedside Patient Tobacco Use Status: Current everyday Tobacco user Tobacco use type: Cigarette Cigarettes Per Day: 5 Substance Use Type: Crack/Cocaine service: No Current occupational status: employed Current occupation: Rt handed Physical Exam ED Vital Signs: Vital Signs - 24 hr 06/12/25 13:45 Temperature 98.1 F Pulse Rate 108 H Respiratory Rate 16 Blood Pressure 111/65 Pulse Oximetry 97 Oxygen Delivery Method Room Air BMI result Body Mass Index 23.4 Vital signs have been reviewed and appear to be correct. Blood pressure normal. Heart rate slightly tachycardic. Respiratory rate normal. Temperature normal. Oxygen saturation normal. Const General: cooperative, healthy appearing and no acute distress Orientation/consciousness: oriented to person, oriented to place, oriented to time and patient oriented x3 Limitations: no limitations HENMT Head: Yes normocephalic and Yes atraumatic Ears: external ears normal General nose exam: Normal external nose present Face and sinus: Yes face symmetric Mouth: oropharynx normal and moist mucous membranes Throat: Yes uvula midline Eyes Pupils: Equal, round and reactive pupils present Neck Neck: Yes normal visual inspection and Yes supple Resp Effort & Inspection: normal respiratory effort and able to speak in complete sentences Auscultation: clear to auscultation bilaterally Cardio Rate: regular rate Rhythm: regular rhythm Heart sounds: S1 normal heart sound present and S2 normal heart sound present GI Palpation (GI): Soft to palpation and nontender Auscultation: normoactive bowel sounds General: Yes no CVA tenderness Back/Spine/Pelvis Back: no CVA tenderness Skin General skin exam: elasticity normal and turgor normal Neuro General: oriented to person, oriented to place, oriented to time, patient oriented x3, moves all extremities, no focal motor deficits and CN's II-XI intact bilaterally Cranial nerves: Yes Equal, round and reactive pupils present Cognition (Neuro): normal cognition Motor exam (neuro): Tremors during motor activity present bilateral upper extremity resting tremor Extrem General: Yes full ROM, Yes no pedal edema and Yes no calf tenderness Psych Mental Status: mental status grossly normal Affect: normal affect Thought process: Normal thought process present Medical Decision Making Medical Decision Making MDM Narrative: Patient is a 44-year-old female presenting to the emergency department requesting refill of clonazepam. On exam patient is awake, A+Ox3, VS WNL, afebrile, normal neurological exam without focal deficits, physical exam findings as above. Given reported symptoms and physical exam findings, initial differential includes but is not limited to medication refill, anxiety, benzodiazepine withdrawal. Discussed with patient that at last visit she was advised she would not be able to continue to receive refills through the ED for her clonazepam. Also discussed that she has not been prescribed clonazepam prior that last visit since October. She states she has been buy it on the street. Case discussed with quality engineer medical device, Dr. Andujar who advises that patient can be given a two day supply at today's visit but none after that. Discussed this with patient who verbalized understanding calmly. Advised patient to contact PCP for ongoing prescription. Return precautions discussed. Will send rx for 1mg BID x 2 days, discussed with patient that will send as 0.5mg tabs so she can slowly wean down if unable to get prescription from PCP. Patient verbalized understanding of and agreement with plan. Differential Diagnosis Differential Diagnoses: The differential diagnosis associated with the presentation includes as per [facility] Admission/Observation Consideration of admission/observation: Escalation of care including admission/observation considered Patient would have been admitted to the hospital had their clinical presentation warranted hospital admission. External Record Review External record reviewed: Inpatient record, Office record and Outpatient record Prescription Management I considered prescription management with: Other Discharge Plan Discharge Clinical Impression: Medication refill Patient Disposition: Home, Self-Care Instructions: Medicine Refill (ED) Additional Instructions: You presented to the ED for a medication refill. I have spoken to the ED Brick Baker and we unfortunately are unable to continue to refill your Clonazepam (Klonopin) prescription any longer through the emergency department. You are being prescribed two days worth at today's visit until you can reach your PCP or psychiatrist. You need to follow up with your primary care physician or psychiatrist as they should be managing this medication. Please call them today to make an urgent appointment. Prescriptions: New clonazepam [Klonopin] 0.5 mg tablet 1 mg PO BID 2 Days Qty: 8 0RF No Action (DME) Bone Stimulator See Rx Instructions .ROUTE .MEDSUPPLY Qty: 1 0RF Rx Instructions: posterior malleolar fracture-delayed healing and osteopenia clonidine HCl 0.2 mg tablet 0.2 mg PO BID Qty: 28 0RF ibuprofen 600 mg tablet 600 mg PO Q8H PRN (Reason: pain) Qty: 20 0RF buspirone 10 mg tablet 10 mg PO BID hydroxyzine pamoate 25 mg capsule 25 mg PO BID naproxen sodium [Aleve] 220 mg Tablet 220 mg PO BID PRN (Reason: migraines) methadone 10 mg/mL Concentrate 120 mg PO DAILY methadone 10 mg/mL Concentrate 110 mg PO BEDTIME doxycycline monohydrate 100 mg capsule 100 mg PO BID Qty: 20 0RF amoxicillin-pot clavulanate 875-125 mg tablet 1 tab PO BID Qty: 20 0RF clonazepam [Klonopin] 1 mg tablet 1 mg PO BID Qty: 15 0RF baclofen 10 mg tablet 10 mg PO DAILY PRN (Reason: muscle spasm) Qty: 90 0RF gabapentin 300 mg capsule 900 mg PO TID Qty: 180 0RF quetiapine 400 mg tablet 400 mg PO BEDTIME 7 Days Qty: 7 0RF gabapentin 300 mg capsule 900 mg PO TID 30 Days Qty: 270 0RF clonazepam [Klonopin] 1 mg tablet 1 mg PO BID 7 Days Qty: 14 0RF clonidine HCl 0.2 mg tablet 0.2 mg PO BID 30 Days Qty: 60 0RF baclofen 10 mg tablet 10 mg PO BID 30 Days Qty: 60 0RF hydroxyzine HCl 25 mg tablet 25 mg PO BID 30 Days Qty: 60 0RF quetiapine 400 mg tablet 400 mg PO BEDTIME 30 Days Qty: 30 0RF Print Language: Icelandic
[2025-06-12 14:55] VITALS: BP 111/65; PULSE 108; RESP 16; TEMP 36.7; O2SAT 97
--- OUTSIDE RECORDS SUMMARY | 2025-06-12 15:18 | XMS_ITS | Clinical Summary ---
Author Organization [facility] ity Address [address] [place] [address] Care Team Providers Care Project Archivist Name Role Phone Unavailable Primary Care Provider Unavailabl e Social History Tobacco Use Types Packs/Day Years Used Date Smoking Tobacco: Never Assessed Comments Unknown Sex and Gender Information Value Date Recorded Sex Assigned at Not on file Legal Sex Female 6:36 AM EST Gender Identity Not on file Sexual Orientation Not on file Plan of Treatment Health Maintenance Due Date Last Done Comments Breast Cancer Screening 1980 DTaP,Tdap,and Td Vaccines (1 - Tdap) 1999 Hepatitis B Vaccines (1 of 3 - 19+ 3-dose series) 1999 Cervical Cancer Screening: P ap Smear 2001 COVID-19 Vaccine (2023-2 5 season) 2024 Depression Screening 10/30/2024 Influenza Vaccine (#1) 2025 HIB Vaccines Aged Out No longer eligi [...] patient's age to complete this topic Meningococcal B Vaccine Aged Out No l onger eligible based on patient's age to complete this topic Pneumococcal Vaccine: Pediat rics (0 to 5 Years) and At-Risk Patients (6 to 49 Years) Aged Out No longer eligible b ased on patient's age to complete this topic RSV Immunization Patients Un leigh 20 months Aged Out No longer eligible b ased on patient's age to complete this topic Varicella Vaccines Aged Out No longer eligible based on patient's age to complete this topic
== END 2025-06-12 14:55 | disposition home or self-care (01) ==
PROVIDERS: Emergency Provider Emergency Medicine; PCP Internal Medicine
DX: R25.1 Tremor, unspecified (principal); Z76.0 Encounter for issue of repeat prescription
CPT/HCPCS: 99282

== ENCOUNTER 2025-07-30 11:14 | Outpatient (REF) | payer OTHER, SELFPAY ==
--- OUTSIDE RECORDS SUMMARY | 2025-07-30 12:51 | XMS_ITS | Clinical Summary ---
Author Organization [facility] ity Address [id number] [place] [id number] Care Team Providers Care Sifting Operator Name Role Phone Unavailable Primary Care Provider [...] Cervical Cancer Screening: P ap Smear 2001 HPV Vaccines (1 - 3-dose SCD M series) 2007 Depression Screening 10/30/2024 COVID-19 Vaccine (1 - 2023-2 5 season) 2025 Influenza Vaccine (#1) 2025 RSV Immunization Adult Patie nts (1 - 1-dose 75+ series) 2055 HIB Vaccines Aged Out No longer eligi [...]
[2025-07-30 13:17] LABS: MANUAL DIFF FLAG NO
[2025-07-30 13:29] LABS: Hematocrit 40.9 % (37.0-47.0); Hemoglobin 13.8 g/dl (12.0-16.0); Imm Gran Abs Auto 0.05 X10*3/uL (0.00-0.03); Imm Gran Pct Auto 0.5 % (0.0-0.4); Lymphocytes Absolute Auto 2.1 X10*3/uL (1.2-4.9); Mean Corpuscular HGB Conc 33.7 g/dl (31.0-35.0); Mean Corpuscular Hemoglobin 30.7 pg (27.0-33.0); Mean Corpuscular Volume 90.9 fL (80.0-98.0); NRBC Abs Auto 0.000 X10*3/uL (0.0-0.012); NRBC Pct Auto 0.0 /100WBC (0.0-0.2); Platelet Count 280 X10*3/uL (160-400); Red Blood Count 4.50 X10*6/uL (4.20-5.50); White Blood Count 10.5 X10*3/uL (4.8-10.8)
[2025-07-30 13:38] LABS: Cannabinoid Screen Urine POSITIVE (Not Detect)
[2025-07-30 13:58] LABS: Alanine Aminotransferase 21 U/L (0-31); Albumin Level 4.5 g/dL (3.5-5.0); Alkaline Phosphatase 80 U/L (39-117); Anion Gap 12 (12-20); Aspartate Amino Transferase 28 U/L (5-31); Blood Urea Nitrogen 16 mg/dL (9-16); Calcium 9.7 mg/dL (8.4-10.2); Carbon Dioxide 25 mmol/L (22-29); Chloride 105 mmol/L (96-108); Estimated Glomerular Filt Rate > 60; Potassium 4.5 mmol/L (3.3-5.1); Sodium 137 mmol/L (135-145); Total Protein 7.5 g/dL (6.5-8.0)
== END 2025-07-30 11:15 | disposition home or self-care (01) ==
LOC: HO.HHCL 11:14
PROVIDERS: Visit Provider Registered Nurse Psychiatric/Mental Health
DX: Z79.899 Other long term (current) drug therapy (principal)
CPT/HCPCS: 80053; 80307; 82248; 84443; 85025